=== PATIENT | female | born 1950 | race Caucasian/White ===

== ENCOUNTER 2016-12-14 21:55 | Inpatient (IN) | payer MEDICARE ==
[~2016-12-14] VITALS: Ht 165.1 cm; Wt 77.7 kg
[~2016-12-14 21:55] MED LIST: ALBU2.5I INH; ASPI325T24 PO; CALC600T10 PO; CHOL1CAP6 PO; CLON.1 PO; CYMB60CA PO; FLON0.053; LIPI80TA16 PO; LOSA50TA PO; METO50CR PO; MONT10TA2 PO; NIAC500T18 PO; OMEP20TA39 PO; PRED10 PO; TRAZ100 PO
[2016-12-14 22:02] VITALS: BP 221/102; PULSE 59; RESP 16; O2SAT 96
[2016-12-14] MEDS ORDERED: SODIUM CHLOR 0.9% 1000 ML INJ 1,000 ML IV ONE (22:08)
[2016-12-14 22:25] VITALS: BP 221/102; PULSE 67; RESP 16; O2SAT 94
[2016-12-14 22:29] LABS: AUTOMATED NEUTROPHIL # 11.6 TH/MM3 (1.8-7.7); BASOPHIL % 0.1 % (0.0-2.0); HEMATOCRIT 39.5 % (35.0-46.0); LYMPH % 8.5 % (9.0-44.0); LYMPHOCYTE # 1.2 TH/MM3 (1.0-4.8); MEAN CELL VOLUME 89.2 FL (80.0-100.0); MEAN CORPUSCULAR HEMOGLOBIN 30.2 PG (27.0-34.0); MEAN CORPUSCULAR HGB CONC 33.8 % (32.0-36.0); MONO % 6.6 % (0.0-8.0); NEUT % 84.8 % (16.0-70.0); PLATELET COUNT 212 TH/MM3 (150-450); RED BLOOD COUNT 4.43 MIL/MM3 (4.00-5.30); RED CELL DISTRIBUTION WIDTH 13.3 % (11.6-17.2); WHITE BLOOD COUNT 13.7 TH/MM3 (4.0-11.0)
[2016-12-14 22:30] VITALS: BP 239/103; PULSE 75; RESP 16; O2SAT 96
[2016-12-14 22:30] LABS: I-STAT POTASSIUM 3.7 MMOL/L (3.5-4.9)
[2016-12-14] MEDS ORDERED: niCARdipine INJ 25 MG in SODIUM CHLOR 0.9% 250 ML INJ 250 ML IV SCH (22:30)
[2016-12-14] MEDS ORDERED: ONDANSETRON HCL 4 MG/2 ML VIAL IV PUSH ONE (22:30)
[2016-12-14] MEDS ORDERED: MORPHINE SULFATE 4 MG/ML INJ IV PUSH ONE (22:30)
--- NOTE | 2016-12-14 22:30 | RADRPT ---
EXAM DATE/TIME: 12/14/2016 22:13 [place] COMPARISON: No previous studies available for comparison. INDICATIONS : Stroke alert; headache and right vision loss. RADIATION DOSE: 38.81 CTDIvol (mGy) This report was called by Dr Driver to Dr Post at 10: 27 PM MEDICAL HISTORY : Non-responsive. SURGICAL HISTORY : Non-responsive. ENCOUNTER: Initial ACUITY: 1 day PAIN SCALE: Non-responsive LOCATION: cranial TECHNIQUE: Multiple contiguous axial images were obtained of the head. Using automated exposure control and adj ustment of the mA and/or kV according to patient size, radiation dose was kept as low as reasonably a chievable to obtain optimal diagnostic quality images. FINDINGS: There is an approximately 4 cm x 1.7 cm acute hemorrhage in the right occipital lobe with some surrou nding edema and mass effect and sulcal effacement and small amount of extra-axial hemorrhage extendin g into the posterior interhemispheric region and right tentorium. There is no significant midline quin ft. No acute bony abnormalities. CONCLUSION: 1. Acute 4 cm x 1.7 cm hemorrhage in the right occipital lobe with some surrounding edema and localiz ed mass effect and trace extra-axial hemorrhage as well. Kenneth Driver MD on December 14, 2016 at 22:25 Board Certified Radiologist. This report was verified electronically.
[2016-12-14 22:31] LABS: HEMO FLAGS AUTO DIFF
--- NOTE | 2016-12-14 22:40 | PD ---
HPI Chief Complaint: Neuro Symptoms/ Deficits Time Seen by Provider: 22:08 Travel History International Travel<30 days: No Contact w/Intl Traveler<30days: No Traveled to known affect area: No History of Present Illness HPI Patient is a 66-year-old female who approximately an hour prior to presentation had onset of the worst headache of her life particularly on the right side of her head. Patient also has a very vague visual disturbance on the left side of her visual camp. Patient states she is unable to see the glasses on the left side of my face. Patient states he is not on any blood thinners currently. She 'll he takes 325 mg of aspirin daily. Patient does have a history of breast cancer which is in remission since 2013. Patient states she's never had a headache like this also radiating down her neck. PFSH Past Medical History Hx Anticoagulant Therapy: Yes (325MG ASA) Asthma: Yes Blood Disorders: No Anxiety: Yes Depression: Yes Heart Rhythm Problems: Yes Cancer: Yes (LEFT BREAST) Cardiac Catheterization: Yes Cardiovascular Problems: Yes (IRREGULAR HEART BEAT, SMALL CORONARY ARTERIES) High Cholesterol: Yes (CONTROLLED ON MEDS) Chemotherapy: No Chest Pain: No Congestive Heart Failure: No COPD: Yes Cerebrovascular Accident: Yes (6 TIA'S 2009) Coronary Artery Disease: Yes Diabetes: Yes (TYPE 2) Diminished Hearing: Yes Endocrine: Yes Gastrointestinal Disorders: Yes (ACID REFLUX) GERD: Yes Glaucoma: No Genitourinary: No Headaches: Yes Hepatitis: No Hiatal Hernia: Yes Hypertension: Yes (CONTROLLED ON MEDS) Immune Disorder: No Kidney Stones: No Musculoskeletal: Yes (ARTHRITIS R KNEE, LEFT KNEE) Neurologic: Yes (TIA X 4 2005 2006 2007 2009) Psychiatric: Yes (CLAUSTROPHOBIC) Reproductive: No Respiratory: Yes (ASTHMA, COPD) Immunizations Current: Yes Myocardial Infarction: No Radiation Therapy: Yes (LAST DOSE 11/24/14) Renal Failure: No Seizures: No Sleep Apnea: No Thyroid Disease: No Ulcer: Yes Menopausal: Yes Tubal Ligation: Yes Past Surgical History Abdominal Surgery: Yes (APPENDECTOMY, CHOLECYSTECTOMY) AICD: No Appendectomy: Yes Body Medical Devices: TITANIUM PLACED DURING HEMORRHOIDECTOMY Cardiac Surgery: No Section: Yes Cholecystectomy: Yes Ear Surgery: No Endocrine Surgery: No Eye Surgery: No Genitourinary Surgery: No Gynecologic Surgery: Yes Joint Replacement: Yes (RIGHT KNEE 07/17/14) Oral Surgery: Yes (PERMANENT BRIDGE) Pacemaker: No Thoracic Surgery: No Other Surgery: Yes (MULT SKIN CANCER REMOVED) Social History Alcohol Use: No Tobacco Use: No Substance Use: No Allergies-Medications (Allergen,Severity, Reaction): Coded Allergies: Bactrim (Verified Allergy, Severe, RASH/ NAUSEA, 12/14/16) Biaxin (Verified Allergy, Severe, RASH, 12/14/16) Penicillin (Verified Allergy, Severe, RASH, 12/14/16) Aggrenox (Unverified Allergy, Unknown, 12/14/16) Codeine (Unverified Adverse Reaction, Severe, HALLUCINATIONS, 12/14/16) Reported Meds & Prescriptions Reported Meds & Active Scripts Active Reported Flonase Allergy Relief Children Nasal [place] (Fluticasone Nasal [place]) 50 Mcg/ Act [place] 1 [place] EACH NARE DAILY PRN 50 mcg/spray Montelukast (Montelukast Sodium) 10 Mg Tab 10 Mg PO HS Vitamin C (Ascorbic Acid) 1,000 Mg Tab 1,000 Mg PO DAILY Niacin 500 Mg Tab 1,000 Mg PO DAILY Omeprazole 20 Mg Tab 20 Mg PO BID Trazodone (Trazodone HCl) 100 Mg Tab 100 Mg PO HS Cymbalta DR (Duloxetine HCl) 60 Mg Capdr 60 Mg PO DAILY Vitamin D (Ergocalciferol) 50,000 Unit Cap 900 Units PO Q7D Calcium + D & K (Calcium-Vitamins D & K) 500-1,000-40 Mg-Unit-Mcg Chew 900 Tab CHEW Lipitor (Atorvastatin Calcium) 80 Mg Tab 80 Mg PO HS Clonidine (Clonidine HCl) 0.1 Mg Tab 0.1 Mg PO BID Losartan (Losartan Potassium) 50 Mg Tab 50 Mg PO DAILY Metoprolol Tartrate 50 Mg Tab 50 Mg PO BID Metformin (Metformin HCl) 500 Mg Tab 500 Mg PO DAILY With a meal Albuterol Neb (Albuterol Sulfate) 2.5 Mg/3 Ml Neb 2.5 Mg NEB BID Aspirin 325 Mg Tab 325 Mg PO ONCE Review of Systems Except as stated in HPI: all other systems reviewed are Neg Physical Exam Narrative GENERAL: Well-developed well-nourished no apparent distress. SKIN: Warm and dry. HEAD: Atraumatic. Normocephalic. EYES: Pupils equal and round. No scleral icterus. No injection or drainage. ENT: No nasal bleeding or discharge. Mucous membranes pink and moist. NECK: Trachea midline. No JVD. CARDIOVASCULAR: Regular rate and rhythm. No murmur appreciated. RESPIRATORY: No accessory muscle use. Clear to auscultation. Breath sounds equal bilaterally. GASTROINTESTINAL: Abdomen soft, non-tender, nondistended. Hepatic and splenic margins not palpable. MUSCULOSKELETAL: No obvious deformities. No clubbing. No cyanosis. No edema. NEUROLOGICAL: Awake alert in [place] responsive. GCS 15. Cranial nerves III through XII grossly intact and nonfocal. Patient has 5 out of 5 strength in all 4 extremities. Cerebellar testing normal. Patient is able to identify a light source equally throughout all visual camp in both eyes. She is also able to identify the number of fingers in all visual camp. Her cranial nerve II deficit is somewhat more vague as of blurred vision. PSYCHIATRIC: Appropriate mood and affect; insight and judgment normal. Data Data Last Documented VS Vital Signs Date Time Temp Pulse Resp B/P Pulse Ox O2 Delivery O2 Flow Rate FiO2 12/14/16 22:31 Nasal Cannula 2 12/14/16 22:30 75 16 239/103 96 Orders Electrocardiogram (12/14/16 ) Diet Npo (12/15/16 Breakfast) Activity Bed Rest (12/14/16 ) I-Stat Creatinine (12/14/16 22:08) I-Stat Profile (12/14/16 22:08) Prothrombin Time / Inr (Pt) (12/14/16 22:08) Act Partial Throm Time (Ptt) (12/14/16 22:08) Complete Blood Count With Diff (12/14/16 22:08) Fibrinogen (12/14/16 22:08) Creatine Kinase (Cpk) (12/14/16 22:08) Troponin I (12/14/16 22:08) Ua Includes Microscopic (12/14/16 22:08) Drug Screen, Random Urine (12/14/16 22:08) Type And Screen (12/14/16 22:08) Ct Brain W/O Iv Contrast(Rout) (12/14/16 ) Beta Hcg (Quant/Titer) (12/14/16 22:08) Consult Neurology (12/14/16 ) Blood Glucose (12/14/16 22:08) Ecg Monitoring (12/14/16 22:08) Neuro Checks Q2HX12,Q4H (12/14/16 22:08) Nursing Bedside Swallow Assess .ONCE (12/14/16 22:08) Iv Access Insert/Monitor (12/14/16 22:08) NPO (12/14/16 22:08) Oximetry (12/14/16 22:08) Oxygen Administration (12/14/16 22:08) Sodium Chlor 0.9% 1000 Ml Inj (Ns 1000 M (12/14/16 22:08) Resp Oxygen Levy C Titrat 1-4 L (12/14/16 22:08) Cath For Specimen (12/14/16 22:08) Nicardipine Inj (Cardene Inj) (12/14/16 22:30) Morphine Inj (Morphine Inj) (12/14/16 22:30) Ondansetron Inj (Zofran Inj) (12/14/16 22:30) Admit To Inpatient (12/14/16 ) Vital Signs (Adult) Q1H (12/14/16 23:12) Neuro Checks Q1H (12/14/16 23:12) Ot Request For Service (12/14/16 23:12) Consult Pt Eval & Treat (12/14/16 23:12) Case Management Consult (12/14/16 ) Activity Bed Rest (12/14/16 23:12) ^ Elevate Head Of Bed (12/14/16 23:12) Nursing Bedside Swallow Assess .ONCE (12/14/16 23:12) Complete Blood Count With Diff (12/15/16 06:00) Basic Metabolic Panel (Bmp) (12/15/16 06:00) Hepatic Functional Panel (12/15/16 06:00) Fibrinogen (12/15/16 06:00) Drug Screen, Random Urine (12/14/16 23:12) Mri Brain W&W/O Contrast (12/15/16 06:00) Resp Oxygen Levy C Titrat 1-4 L (12/14/16 ) Sodium Chlor 0.9% 1000 Ml Inj (Ns 1000 M (12/14/16 23:12) Sodium Chloride 0.9% Flush (Ns Flush) (12/14/16 23:15) Sodium Chloride 0.9% Flush (Ns Flush) (12/15/16 09:00) Labetalol Inj (Trandate Inj) (12/14/16 23:15) Clonidine (Catapres) (12/14/16 23:15) Pantoprazole Inj (Protonix Inj) (12/15/16 09:00) Acetaminophen (Tylenol) (12/14/16 23:15) Ondansetron Inj (Zofran Inj) (12/14/16 23:15) Docusate Sodium (Colace) (12/14/16 23:15) Scd Bilateral/Knee High JIGNESH.QSHIFT (12/14/16 23:12) Place Change Roof Bolter / Telemetry JIGNESH.Q8H (12/14/16 23:12) Consult Stoke Navigator (12/14/16 ) Inpatient Certification (12/14/16 ) Blood Culture (12/14/16 23:12) Levetiracetam Inj (Keppra Inj) (12/15/16 00:00) Morphine Inj (Morphine Inj) (12/14/16 23:30) Admit Order (Ed Use Only) (12/14/16 ) Labs Laboratory Tests Test 12/14/16 22:12 White Blood Count 13.7 TH/MM3 Red Blood Count 4.43 MIL/MM3 Hemoglobin 13.4 GM/DL Bedside Hemoglobin 13.6 G/DL Hematocrit 39.5 % Bedside Hematocrit 40.0 % Mean Corpuscular Volume 89.2 FL Mean Corpuscular Hemoglobin 30.2 PG Mean Corpuscular Hemoglobin 33.8 % Concent Red Cell Distribution Width 13.3 % Platelet Count 212 TH/MM3 Mean Platelet Volume 8.9 FL Neutrophils (%) (Auto) 84.8 % Lymphocytes (%) (Auto) 8.5 % Monocytes (%) (Auto) 6.6 % Eosinophils (%) (Auto) 0.0 % Basophils (%) (Auto) 0.1 % Neutrophils # (Auto) 11.6 TH/MM3 Lymphocytes # (Auto) 1.2 TH/MM3 Monocytes # (Auto) 0.9 TH/MM3 Eosinophils # (Auto) 0.0 TH/MM3 Basophils # (Auto) 0.0 TH/MM3 CBC Comment AUTO DIFF Differential Total Cells 100 Counted Neutrophils % (Manual) 79 % Band Neutrophils % 1 % Lymphocytes % 11 % Monocytes % 7 % Neutrophils # (Manual) 11.2 TH/MM3 Metamyelocytes 2 % Differential Comment FINAL DIFF MANUAL Platelet Estimate NORMAL Platelet Morphology Comment NORMAL Red Cell Morphology Comment NORMAL Prothrombin Time 11.4 SEC Prothromb Time International 1.0 RATIO Ratio Activated Partial 21.7 SEC Thromboplast Time Fibrinogen 164 mg/dL Bedside Sodium 138 MMOL/L Bedside Potassium 3.7 MMOL/L Bedside Chloride 102 MMOL/L Bedside Blood Urea Nitrogen 24 MG/DL Bedside Creatinine 1.0 MG/DL Bedside Glucose 135 MG/DL Total Creatine Kinase 72 U/L Troponin I 0.02 NG/ML Human Chorionic Gonadotropin, 8 MIU/ML Quant Blood Type A POSITIVE Antibody Screen NEGATIVE MDM Medical Decision Making Medical Screen Exam Complete: Yes Emergency Medical Condition: Yes Differential Diagnosis Intracranial hemorrhage, intraparenchymal hemorrhage, hypertensive emergency, coagulopathy, hemorrhagic stroke, ischemic stroke. Narrative Course Patient was activated as a stroke alert on arrival, she was discussed briefly with neurology on-call, patient was rushed to the CAT scanner which revealed a right-sided occipital bleed which would explain her symptoms. Patient is very hypertensive on arrival with blood pressures in 220 systolic Cardene drip was ordered to lower her blood pressure for a goal of 160-[address] Patel has been paged who is on-call for the neurosurgery service. She is in route. Abdomen urine is arrived and evaluated the patient and will pursue nonoperative management at this time. Plan is for an MRI in the morning at this point. Patient will go to the SICU for the night. Labs reviewed and a platelet count is within normal limits, coags within normal limits, chemistry within normal limits. Critical Care Narrative Aggregate critical care time was 35 minutes. Time to perform other separately billable procedures was not included in the critical care time. My time did not include minutes spent treating any other patients simultaneously or on activities that did not directly contribute to the patient's treatment. The services I provided to this patient were to treat and/or prevent clinically significant deterioration that could result in: , disability, organ failure. I provided critical care services requiring my management, as noted below: Chart data review, documentation time, medication orders and management, vital sign assessments/reviewing monitor data, ordering and reviewing lab tests, ordering and interpreting/reviewing x-rays and diagnostic studies, care of the patient and discussion of the patient with the admitting physicians. Diagnosis Primary Impression: Hemorrhagic stroke Additional Impressions: Intracranial hemorrhage Hypertensive emergency Admitting Information Admitting Physician Requests: Admit Condition: Critical Sotero Post MD Dec 14, 2016 22:39
[2016-12-14 22:42] LABS: APTT (PATIENT) 21.7 SEC (24.3-30.1); PROTHROMBIN TIME - PATIENT 11.4 SEC (9.8-11.6)
[2016-12-14] MEDS ORDERED: CLON0.1T PO (22:56)
[2016-12-14] MEDS ORDERED: METF500T PO (22:56)
[2016-12-14] MEDS ORDERED: ERGO1CAP10 PO (22:56)
[2016-12-14] MEDS ORDERED: TRAZ100T4 PO (22:56)
[2016-12-14] MEDS ORDERED: METO50TA PO (22:56)
[2016-12-14] MEDS ORDERED: LOSA50TA PO (22:56)
[2016-12-14] MEDS ORDERED: ALBU0.08 NEB (22:56)
[2016-12-14] MEDS ORDERED: CYMB60CA PO (22:56)
[2016-12-14] MEDS ORDERED: ASPI325T PO (22:56)
[2016-12-14] MEDS ORDERED: LIPI80TA PO (22:56)
[2016-12-14] MEDS ORDERED: CALCCHW25 CHEW (22:56)
[2016-12-14] MEDS ORDERED: VITA10007 PO (22:57)
[2016-12-14] MEDS ORDERED: MONT10TA4 PO (22:57)
[2016-12-14] MEDS ORDERED: NIAC500T5 PO (22:57)
[2016-12-14] MEDS ORDERED: OMEP20TA PO (22:57)
[2016-12-14] MEDS ORDERED: FLUT1SPR9 EACH NARE (22:57)
[2016-12-14 23:00] VITALS: BP 133/59; PULSE 70; RESP 16; O2SAT 96
[2016-12-14 23:01] LABS: BANDS 1 % (0-6); METAMYELOCYTES 2 % (0-1); NEUTROPHIL # MANUAL DIFF 11.2 TH/MM3 (1.8-7.7); PLATELET ESTIMATE SMEAR NORMAL (NORMAL); PLATELET MORPHOLOGY NORMAL (NORMAL); POLYS (SEG NEUTROPHILS) 79 % (16-70); SCAN/DIFF FINAL DIFF MANUAL; WBC DIFF SAMPLE 100
[2016-12-14] MEDS: SODIUM CHLOR 0.9% 1000 ML INJ 1,000 ML IV SCH (23:12)
[2016-12-14] MEDS ORDERED: LABETALOL HCL 100 MG/20 ML VIAL IV PRN (23:15)
[2016-12-14] MEDS ORDERED: SODIUM CHLORIDE 0.9% FLUSH 5 ML FLUSH IVF PRN (23:15)
[2016-12-15] VITALS (13 sets, daily range): BP systolic 126–193; BP diastolic 58–85; PULSE 48–84; RESP 12–24; TEMP 97.5–98.2; O2SAT 93–98
[2016-12-15] MEDS ORDERED: FLUTICASONE PROPIONATE 50 MCG/ACT 16 GM NASAL SPRAY EACH NARE PRN
[2016-12-15] MEDS ORDERED: LORazepam 2 MG/ML VIAL IV PUSH ONE
[2016-12-15] MEDS ORDERED: ASPIRIN 325 MG TAB PO SCH
--- NOTE | 2016-12-15 00:06 | HHI.HP ---
HPI Service Neurosurgery Primary Care Physician Carmelo Cross MD Chief Complaint: headache History of Present Illness 66 rt handed lady presented after acute onset of headache while watching TV. She also felt that she could not see on the left. Her systolic BP was over 200. Her gave her clonidine and took her to the ED where a CT showed a right occipital 4x2 cm acute hemorrhage. She remains alert and her BP normalized with cardene.She still has a left upper quadrant anopsia but is otherwise intact. GCS is 15 Review of Systems Constitutional: DENIES: Diaphoretic episodes, Fatigue, Fever, Weight gain, Weight loss, Chills, Dizziness, Change in appetite, Night Sweats Endocrine: DENIES: Abnorml menstrual pattern, Heat/cold intolerance, Polydipsia , Polyuria, Polyphagia Eyes: DENIES: Blurred vision, Diplopia, Eye inflammation, Eye pain, Vision loss , Photosensitivity, Double Vision Ears, nose, mouth, throat: DENIES: Tinnitus, Hearing loss, Vertigo, Nasal discharge, Oral lesions, Throat pain, Hoarseness, Ear Pain, Running Nose, Epistaxis, Sinus Pain, Toothache, Odynophagia Respiratory: DENIES: Apneas, Cough, Snoring, Wheezing, Hemoptysis, Sputum production, Shortness of breath Cardiovascular: DENIES: Chest pain, Palpitations, Syncope, Dyspnea on Exertion , PND, Lower Extremity Edema, Orthopnea, Claudication Gastrointestinal: DENIES: Abdominal pain, Black stools, Bloody stools, Constipation, Diarrhea, Nausea, Vomiting, Difficulty Swallowing, Anorexia Genitourinary: DENIES: Abnormal vaginal bleeding, Dysmenorrhea, Dyspareunia, Sexual dysfunction, Urinary frequency, Urinary incontinence, Urgency, Hematuria , Dysuria, Nocturia, Vaginal discharge Musculoskeletal: COMPLAINS OF: Neck pain, DENIES: Joint pain, Muscle aches, Stiffness, Joint Swelling, Back pain Integumentary: DENIES: Abnormal pigmentation, Pruritus, Rash, Nail changes, Breast masses, Breast skin changes, Nipple discharge Hematologic/lymphatic: DENIES: Bruising, Lymphadenopathy Neurologic: COMPLAINS OF: Headache Psychiatric: DENIES: Anxiety, Confusion, Mood changes, Depression, Hallucinations, Agitation, Suicidal Ideation, Homicidal Ideation, Delusions Past Family Social History Allergies: Coded Allergies: Bactrim (Verified Allergy, Severe, RASH/ NAUSEA, 12/14/16) Biaxin (Verified Allergy, Severe, RASH, 12/14/16) Penicillin (Verified Allergy, Severe, RASH, 12/14/16) Aggrenox (Unverified Allergy, Unknown, 12/14/16) Codeine (Unverified Adverse Reaction, Severe, HALLUCINATIONS, 12/14/16) Past Medical History Breast CA treated with lumpectomy and RT Pulmonary reactive changes treated with steroids in the past week. 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 DM type 2 treated with metformin, hypercholesterolemia, CAD TIAs many yrs ago treated with ASA, last was many yrs ago OA Past Surgical History Lumpectomy Knee replacement Reported Medications Reported Meds & Active Scripts Active Reported Flonase Allergy Relief Children Nasal [place] (Fluticasone Nasal [place]) 50 Mcg/ Act [place] 1 [place] EACH NARE DAILY PRN 50 mcg/spray Montelukast (Montelukast Sodium) 10 Mg Tab 10 Mg PO HS Vitamin C (Ascorbic Acid) 1,000 Mg Tab 1,000 Mg PO DAILY Niacin 500 Mg Tab 1,000 Mg PO DAILY Omeprazole 20 Mg Tab 20 Mg PO BID Trazodone (Trazodone HCl) 100 Mg Tab 100 Mg PO HS Cymbalta DR (Duloxetine HCl) 60 Mg Capdr 60 Mg PO DAILY Vitamin D (Ergocalciferol) 50,000 Unit Cap 900 Units PO Q7D Calcium + D & K (Calcium-Vitamins D & K) 500-1,000-40 Mg-Unit-Mcg Chew 900 Tab CHEW Lipitor (Atorvastatin Calcium) 80 Mg Tab 80 Mg PO HS Clonidine (Clonidine HCl) 0.1 Mg Tab 0.1 Mg PO BID Losartan (Losartan Potassium) 50 Mg Tab 50 Mg PO DAILY Metoprolol Tartrate 50 Mg Tab 50 Mg PO BID Metformin (Metformin HCl) 500 Mg Tab 500 Mg PO DAILY With a meal Albuterol Neb (Albuterol Sulfate) 2.5 Mg/3 Ml Neb 2.5 Mg NEB BID Aspirin 325 Mg Tab 325 Mg PO ONCE Family History Mother had lung CA Cardiac disease is prevalent in her family Social History , she does not smoke, 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 Reflexes brisk 3/4 in the bic/tri/patella, no Carrillo no Babinski Skin warm, RRR, lungs CTA, no wheezing, abd soft with nl BS Laboratory Laboratory Tests Test 12/14/16 22:12 White Blood Count 13.7 Red Blood Count 4.43 Hemoglobin 13.4 Bedside Hemoglobin 13.6 Hematocrit 39.5 Bedside Hematocrit 40.0 Mean Corpuscular Volume 89.2 Mean Corpuscular Hemoglobin 30.2 Mean Corpuscular Hemoglobin 33.8 Concent Red Cell Distribution Width 13.3 Platelet Count 212 Mean Platelet Volume 8.9 Neutrophils (%) (Auto) 84.8 Lymphocytes (%) (Auto) 8.5 Monocytes (%) (Auto) 6.6 Eosinophils (%) (Auto) 0.0 Basophils (%) (Auto) 0.1 Neutrophils # (Auto) 11.6 Lymphocytes # (Auto) 1.2 Monocytes # (Auto) 0.9 Eosinophils # (Auto) 0.0 Basophils # (Auto) 0.0 CBC Comment AUTO DIFF Differential Total Cells 100 Counted Neutrophils % (Manual) 79 Band Neutrophils % 1 Lymphocytes % 11 Monocytes % 7 Neutrophils # (Manual) 11.2 Metamyelocytes 2 Differential Comment FINAL DIFF MANUAL Platelet Estimate NORMAL Platelet Morphology Comment NORMAL Red Cell Morphology Comment NORMAL Prothrombin Time 11.4 Prothromb Time International 1.0 Ratio Activated Partial 21.7 Thromboplast Time Fibrinogen 164 Bedside Sodium 138 Bedside Potassium 3.7 Bedside Chloride 102 Bedside Blood Urea Nitrogen 24 Bedside Creatinine 1.0 Bedside Glucose 135 Total Creatine Kinase 72 Troponin I 0.02 Human Chorionic Gonadotropin, 8 Quant Blood Type A POSITIVE Antibody Screen NEGATIVE Result Diagram: 12/14/162211 Imaging Last Impressions Head CT 12/14/16 0000 Signed Impressions: Service Date/Time: Wednesday, December 14, 2016 22:13 - CONCLUSION: 1. Acute 4 cm x 1.7 cm hemorrhage in the right occipital lobe with some surrounding edema and localized mass effect and trace extra-axial hemorrhage as well. Kenneth Driver MD Assessment and Plan Diagnosis: (1) Intracranial hemorrhage Plan: New onset acute of right occipital bleed, D/DX includes vasculopathy, hemorrhagic mass. MRI of the brain with and without contrast is pending. ICD Code: I62.9 (2) Hypertensive emergency Plan: Blood pressure control with cardene gtt is ordered. She has recently been for a week on IV steroids. A follow up cortisol is pending for tomorrow am. ICD Code: I16.1 Assessment and Plan Seizure, DVT and PUD prophylaxis is ordered per protocol. Low dose ASA is continued as it has been helpful for TIA prevention in the past for her and is unlikely to increase the bleed at a low dose. Jay Patel Dec 15, 2016 00:05
[2016-12-15 00:35] LABS: BLOOD, URINE NEG (NEG); GLUCOSE,URINE NEG (NEG); KETONE, URINE NEG (NEG); NITRITE,URINE NEG (NEG); PH, URINE 6.5 (5.0-8.5); SQUAMOUS EPITHELIAL CELL URINE <1 /hpf (0-5); URINE COLOR COLORLESS (YELLW/STRAW)
[2016-12-15] MEDS ORDERED: ASPIRIN 81 MG CHEW TAB PO ONE (00:45)
[2016-12-15 00:51] LABS: AMPHETAMINE, URINE NEG (NEG); BARBITURATES, URINE NEG (NEG); COCAINE, URINE NEG (NEG)
[2016-12-15] MEDS: ONDANSETRON HCL 4 MG/2 ML VIAL IV PRN (03:25)
[2016-12-15 05:30] LABS: AUTOMATED NEUTROPHIL # 18.1 TH/MM3 (1.8-7.7); BASOPHIL % 0.2 % (0.0-2.0); HEMATOCRIT 39.3 % (35.0-46.0); HEMO FLAGS DIFF FINAL; LYMPH % 8.9 % (9.0-44.0); MEAN CELL VOLUME 88.2 FL (80.0-100.0); MEAN CORPUSCULAR HEMOGLOBIN 29.4 PG (27.0-34.0); MEAN CORPUSCULAR HGB CONC 33.3 % (32.0-36.0); MONO % 8.5 % (0.0-8.0); NEUT % 82.4 % (16.0-70.0); PLATELET COUNT 144 TH/MM3 (150-450); RED BLOOD COUNT 4.45 MIL/MM3 (4.00-5.30)
[2016-12-15 05:58] LABS: BICARBONATE 18.2 MEQ/L (21.0-32.0); POTASSIUM 3.8 MEQ/L (3.5-5.1)
[2016-12-15] MEDS: ACETAMINOPHEN 1000 MG/100 ML VIAL IV SCH ×5 (06:00→23:08)
[2016-12-15 06:01] LABS: INDIRECT BILIRUBIN 0.2 MG/DL (0.0-0.8); TOTAL BILIRUBIN ADULT 0.3 MG/DL (0.2-1.0)
[2016-12-15] MEDS: cloNIDine HCL 0.1 MG TAB PO PRN (06:18)
[2016-12-15] MEDS: PANTOPRAZOLE SODIUM 40 MG VIAL IVP SCH (06:45)
[2016-12-15] MEDS: RESP: ALBUTEROL 2.5 MG/3 ML NEB (SCH) INH ×2 (08:40→20:42)
[2016-12-15] MEDS: METOPROLOL TARTRATE 50 MG TAB PO SCH ×2 (09:00→20:52)
[2016-12-15] MEDS: metFORMIN HCL 500 MG TAB PO SCH (09:00)
[2016-12-15] MEDS: SODIUM CHLORIDE 0.9% FLUSH 5 ML FLUSH IVF SCH ×2 (09:22→20:55)
[2016-12-15] MEDS: LOSARTAN 50 MG TAB PO SCH (09:23)
[2016-12-15] MEDS: DEXAMETHASONE 4 MG TAB PO SCH (09:23)
[2016-12-15] MEDS: DULoxetine HCl DR 60 MG CAP PO SCH (09:23)
[2016-12-15] MEDS: cloNIDine HCL 0.1 MG TAB PO SCH ×2 (09:23→20:52)
[2016-12-15] MEDS: ASCORBIC ACID 500 MG TAB PO SCH (09:24)
[2016-12-15] MEDS: NIACIN 500 MG EXTENDED RELEASE TAB PO SCH (09:24)
[2016-12-15] MEDS: ACETAMINOPHEN 325 MG TAB PO PRN (09:24)
--- NOTE | 2016-12-15 09:40 | HHI.NSPN ---
Subjective History 66 yr old with acute onset spontaneous right occipital bleed, with a left superior quadrant visual field loss as well as headaches. MRI/MRS is pending today. GCS is 15 Vitals . Vital Signs Date Time Temp Pulse Resp B/P Pulse Ox O2 Delivery O2 Flow Rate FiO2 12/15/16 08:40 95 21 12/15/16 04:00 97.5 62 14 143/69 93 12/15/16 02:00 97.5 62 14 143/69 93 12/15/16 00:00 62 16 126/58 96 Nasal Cannula 2 12/14/16 23:00 70 16 133/59 96 Nasal Cannula 2 12/14/16 22:31 Nasal Cannula 2 12/14/16 22:30 75 16 239/103 96 12/14/16 22:25 67 16 221/102 94 Room Air 12/14/16 22:02 59 16 221/102 96 12/14/16 12/14/16 12/15/16 15:00 23:00 07:00 Intake Total 468 ml Balance 468 ml Physical Exam Head Head: Atraumatic Eyes Eyes: Pupils Equal Eyes Remarks left upper quadrant visual field cut unchanged, face symmetric, EOMI Neuro Mental Status: Awake, Oriented x 3 Pupils: Reactive Bilaterally Speech: Clear [place] Coma Scale Best Eye Openin - Spontaneous Best Verbal: 5 - Oriented Best Motor: 6 - Obeys Total Gl[place]ow Coma Scale (GCS): 15 Sensation: Intact Cardiac Cardiac: Regular Rate & Rhythm Respiratory Respiratory: CTA Gastrointestinal Gastrointestinal: Soft, Nontender Musculoskeletal Musculoskeletal: Moves all extrem with 5/5 strength Extremities Upper Extremities Deltoid Bicep Tricep HI W. Ext Right Left Lower Extremeties Ilio Quad Plantar Dorsi EHL Right Left Dermatologic Dermatologic: Skin Intact Extremities Edema: SCDs Objective Infectious Disease Cultures Microbiology Date/Time Procedure Status Source Growth 12/14/16 23:40 Aerobic Blood Culture Received Blood Peripheral Pending 12/14/16 23:40 Anaerobic Blood Culture Received Blood Peripheral Pending Labs Laboratory Tests 12/14/16 22:12 12/15/16 05:05 12/15/16 05:08 Laboratory Tests Test 12/14/16 12/15/16 12/15/16 22:12 05:05 05:08 Bedside Sodium 138 MMOL/L Bedside Potassium 3.7 MMOL/L Bedside Chloride 102 MMOL/L Bedside Blood Urea Nitrogen 24 MG/DL Bedside Creatinine 1.0 MG/DL Bedside Glucose 135 MG/DL Total Creatine Kinase 72 U/L Troponin I 0.02 NG/ML Human Chorionic Gonadotropin, 8 MIU/ML Quant Sodium Level 139 MEQ/L Potassium Level 3.8 MEQ/L Chloride Level 110 MEQ/L Carbon Dioxide Level 18.2 MEQ/L Anion Gap 11 MEQ/L Blood Urea Nitrogen 21 MG/DL Creatinine 0.78 MG/DL Estimat Glomerular Filtration 74 ML/MIN Rate Random Glucose 90 MG/DL Calcium Level 8.2 MG/DL Total Bilirubin 0.3 MG/DL Direct Bilirubin 0.1 MG/DL Indirect Bilirubin 0.2 MG/DL Aspartate Amino Transf 29 U/L (AST/SGOT) Alanine Aminotransferase 36 U/L (ALT/SGPT) Alkaline Phosphatase 49 U/L Total Protein 5.1 GM/DL Albumin 2.8 GM/DL Random Cortisol 0.7 MCG/DL Laboratory Tests Test 12/14/16 23:45 Urine Opiates Screen NEG Urine Barbiturates Screen NEG Urine Amphetamines Screen NEG Urine Benzodiazepines Screen NEG Urine Cocaine Screen NEG Urine Cannabinoids Screen NEG Imaging Remarks Last Impressions Head CT 12/14/16 0000 Signed Impressions: Service Date/Time: Wednesday, December 14, 2016 22:13 - CONCLUSION: 1. Acute 4 cm x 1.7 cm hemorrhage in the right occipital lobe with some surrounding edema and localized mass effect and trace extra-axial hemorrhage as well. Kenneth Driver MD Assessment & Plan Diagnosis: (1) Intracranial hemorrhage Plan: New onset acute of right occipital bleed, D/DX includes vasculopathy, hemorrhagic mass. MRI / MRS of the brain with and without contrast is pending. (2) Hypertensive emergency Plan: Blood pressure control with cardene gtt is ordered. She has recently been for a week on IV steroids. A follow up cortisol is low and steroid taper is initiated. Critical Care Time (minutes): 10 Jay Patel Dec 15, 2016 9:40 am
--- NOTE | 2016-12-15 09:46 | EKG ---
Date Performed: 12/15/2016 Time Performed: 03:58:22 PTAGE: 66 years EKG: Sinus rhythm Prolonged QT interval Poor R wave progression - probable normal variant Lateral ST-T changes are non specific Borderline ECG Compared to prior tracing no significant change PREVIOUS TRACING 12/14/2016 22.03.42 DOCTOR: Yash Merino Interpretating Date/Time 12/15/2016 09:44:22
--- NOTE | 2016-12-15 09:46 | EKG ---
Date Performed: 12/14/2016 Time Performed: 22:03:42 PTAGE: 66 years EKG: SINUS BRADYCARDIA MODERATE VOLTAGE CRITERIA FOR LVH, CONSIDER NORMAL VARIANT BORDERLINE ECG Compared to prior tracing no significant change PREVIOUS TRACING : 08/07/2016 12.08 DOCTOR: Yash Merino Interpretating Date/Time 12/15/2016 09:44:31
[2016-12-15] MEDS: levETIRAcetam INJ 500 MG in SODIUM CHLORIDE 0.9% INJ 100 ML IV SCH ×4 (11:50→23:09)
--- NOTE | 2016-12-15 12:00 | MB ---
cc: KAYLA DOSS M.D. DATE OF CONSULTATION: 12/15/2016 HISTORY OF PRESENT ILLNESS The patient is seen for neurological evaluation. Her is at the bedside. She came in yesterday with sudden onset of a very unusual headache and the CT brain showed a right occipital bleed. I have reviewed the CT brain. PAST MEDICAL HISTORY There is a history of breast cancer treated in 2013. MEDICATIONS She has been taking aspirin 325 mg daily. She otherwise takes supportive medication, trazodone, Cymbalta, clonidine, losartan, metoprolol and metformin. The patient was given clonidine yesterday when her blood pressure was noted to be elevated. REVIEW OF SYSTEMS She is still having a headache. NEUROLOGICAL EXAMINATION On exam she is actually alert, pleasant and oriented. There is visual field impairment on the left side, though she is able to count fingers on the left side. There is some questionable flattening of the right nasolabial fold. There is no arm or leg paresis on the bedside exam. Speech is clear. Comprehension and language are clear. Reflexes are 1+ and plantar responses were flexor. IMAGING The CT brain was reviewed. LABORATORY Laboratory data all reviewed. White count 22.0, hemoglobin 13.1, platelets 144. Chemistry with normal sodium and potassium, BUN 21, creatinine normal. INR 1.0. ASSESSMENT Right occipital lobe hemorrhage. This could be related to a hypertensive bleed, but also could be a mass. She is scheduled for MRI brain with and without contrast. She is being followed by neurosurgery. I will follow the neurological care as well. Thank you for asking us to assist in her care. MD DARCY Ryan/KEIRY /11:23 AM /11:54 AM
[2016-12-15] MEDS: SODIUM CHLOR 0.9% 1000 ML INJ 1,000 ML IV SCH (12:30)
[2016-12-15] MEDS ORDERED: LORazepam 2 MG/ML VIAL IV PUSH SCH (13:00)
[2016-12-15] MEDS: hydrALAZINE HCL 20 MG/ML VIAL IV PUSH PRN ×2 (13:15→16:59)
[2016-12-15] MEDS ORDERED: GADODIAMIDE PF 287 MG/ML 20 ML VIAL (for RAD MRI) IV ONE (16:26)
--- NOTE | 2016-12-15 17:16 | RADRPT ---
EXAM DATE/TIME: 12/15/2016 15:22 [facility] COMPARISON: CT SIMULATION, October 09, 2014, 14:59. MRI SPECTROSCOPY W/O CONTRAST, December 15, 2016, 15:22. C T BRAIN W/O CONTRAST, December 14, 2016, 22:13. INDICATIONS : Right occipital lobe bleed. CONTRAST: 16 cc Omniscan (gadodiamide) IV MEDICAL HISTORY : Carcinoma, breast. Diabetes mellitus type 2. Hyperthyroidism. SURGICAL HISTORY : Total knee replacement, right. Appendectomy. Tubal ligation. Lumpectomy. Cholecysectomy. ENCOUNTER: Initial ACUITY: 2 day PAIN SCORE: 0/10 LOCATION: cranial TECHNIQUE: Multiplanar, multisequence MRI of the brain was performed both prior to and following the administrat ion of paramagnetic contrast. FINDINGS: CEREBRUM: The ventricles are normal for age. No evidence of midline shift. A focal area of acute hemorrhage is again identified in the right posterior parietal and occipital lobe which measures up to approximate ly 3.9 x 1.7 cm. There is surrounding edema in the white matter with no significant mass effect. The flair weighted images there is high density subarachnoid hemorrhage as well. The pituitary gland and suprasellar cistern are normal in configuration. WHITE MATTER: No significant signal abnormalities are seen in the white matter. POSTERIOR FOSSA: The cerebellum and brainstem are intact. The 4th ventricle is midline. The cerebellopontine angle is unremarkable. The cerebellar tonsils are normal in position. DIFFUSION IMAGING: No focal areas of restricted diffusion are seen. No evidence of acute infarction. EXTRACRANIAL: The visualized portions of the orbits and paranasal sinuses are unremarkable. POST-CONTRAST: There is a small amount of faint enhancement surrounding the hemorrhage. CONCLUSION: Acute hemorrhage again identified in the posterior right parietal and occipital lobe with small amoun t of subarachnoid hemorrhage. There is minimal fine enhancement surrounding this region. Nirav Cortez MD on December 15, 2016 at 17:08 Board Certified Radiologist. This report was verified electronically.
[2016-12-15] MEDS: ATORVASTATIN 80 MG TAB PO SCH (20:52)
--- NOTE | 2016-12-15 23:23 | RADRPT ---
EXAM DATE/TIME: 12/15/2016 15:22 [facility] COMPARISON: MRI BRAIN W & W/O CONTRAST, December 15, 2016, 15:22. INDICATIONS : Right occipital lobe bleed. MEDICAL HISTORY : Carcinoma, breast. Hypertension. Diabetes mellitus type 2. SURGICAL HISTORY : Tubal ligation. Cholecystectomy. Appendectomy. Lumpectomy. ENCOUNTER: Initial ACUITY: 2 day PAIN SCORE: 0/10 LOCATION: cranial TECHNIQUE: Signal and multiple voxel spectroscopy was performed in both the abnormal side and a contralateral no rmal side. FINDINGS: Findings of necrosis at the site of the abnormality with no elevated choline creatine ratio to sugges t neoplasm.. A prominent lactate peak is present there is significant blunting of the SAWYER peak charac teristic of necrosis. CONCLUSION: 1. Findings of necrosis without underlying neoplasm Yash Khan MD on December 15, 2016 at 23:17 Board Certified Radiologist. This report was verified electronically.
[2016-12-16] VITALS (13 sets, daily range): BP systolic 115–171; BP diastolic 54–74; PULSE 48–70; RESP 12–27; TEMP 97.4–98.3; O2SAT 92–100
[2016-12-16] MEDS: hydrALAZINE HCL 20 MG/ML VIAL IV PUSH PRN ×2 (01:14→06:26)
[2016-12-16] MEDS: SODIUM CHLOR 0.9% 1000 ML INJ 1,000 ML IV SCH (01:28)
[2016-12-16] MEDS: ACETAMINOPHEN 1000 MG/100 ML VIAL IV SCH ×4 (05:20→18:28)
[2016-12-16] MEDS: RESP: ALBUTEROL 2.5 MG/3 ML NEB (SCH) INH ×2 (08:18→20:23)
[2016-12-16] MEDS: metFORMIN HCL 500 MG TAB PO SCH (09:00)
--- NOTE | 2016-12-16 09:00 | HHI.PR ---
Review/Management Diagnosis/Plan: (1) Intracranial hemorrhage Plan: New onset acute of right occipital bleed, D/DX includes vasculopathy, hemorrhagic mass. MRI / MRS of the brain with and without contrast is pending. (2) Hypertensive emergency Plan: Blood pressure control with cardene gtt is ordered. She has recently been for a week on IV steroids. A follow up cortisol is low and steroid taper is initiated. Daily Summary 12/16 doing reasonably well headache improved mri brain seen htn care and follow imaging brain studies Subjective Subjective Comments No acute events reported No headache No chest pain No dyspnea Active Medications Current Medications Medications (Trade) Dose Ordered Sig/Lidia Route Start Time Stop Time Status Last Admin Nicardipine HCl 25 mg/Sodium Chloride 260 ml @ 0 mls/hr TITRATE IV 12/14/16 22:30 12/14/16 22:29 (NS 1000 ml Inj) 1,000 ml @ 70 mls/hr [id number] IV 12/14/16 23:12 12/16/16 01:28 (NS Flush) 2 ml UNSCH PRN IVF 12/14/16 23:15 (NS Flush) 2 ml BID IVF 12/15/16 09:00 12/15/16 20:55 (Trandate Inj) 10 mg Q4H PRN IV 12/14/16 23:15 (Catapres) 0.1 mg Q6H PRN PO 12/14/16 23:15 12/15/16 06:18 (Protonix Inj) 40 mg DAILY IVP 12/15/16 09:00 12/15/16 06:45 (Tylenol) 650 mg Q4H PRN PO 12/14/16 23:15 12/15/16 09:24 Morphine Sulfate 4 mg 4 mg Q4H PRN IV 12/14/16 23:30 (Keppra Inj/NS Inj) 105 ml @ 400 mls/hr Q12H IV 12/15/16 00:00 12/15/16 23:09 (Zofran Inj) 4 mg Q6H PRN IV 12/14/16 23:15 12/15/16 03:25 (Colace) 100 mg BID PRN PO 12/14/16 23:15 (Ofirmev Inj) 1,000 mg Q6H IV 12/15/16 00:00 12/16/16 23:59 12/16/16 06:49 (Vitamin C) 1,000 mg DAILY PO 12/15/16 09:00 12/15/16 09:24 (Lipitor) 80 mg HS PO 12/15/16 21:00 12/15/16 20:52 (Catapres) 0.1 mg BID PO 12/15/16 09:00 12/15/16 20:52 (Cymbalta Dr) 60 mg DAILY PO 12/15/16 09:00 12/15/16 09:23 (Flonase Levy Spr) 1 spray DAILY PRN EACH NARE 12/15/16 00:00 (Cozaar) 50 mg DAILY PO 12/15/16 09:00 12/15/16 09:23 (Glucophage) 500 mg DAILY PO 12/15/16 09:00 (Lopressor) 50 mg BID PO 12/15/16 09:00 12/15/16 20:52 (Slo-Niacin) 1,000 mg DAILY PO 12/15/16 09:00 12/15/16 09:24 (Decadron) 4 mg DAILY PO 12/15/16 09:00 12/15/16 09:23 (Apresoline Inj) 10 mg Q2HR PRN IV PUSH 12/15/16 14:00 12/16/16 06:26 Allergies Allergies Coded Allergies Bactrim (Verified Allergy, Severe, RASH/ NAUSEA, 12/14/16) Biaxin (Verified Allergy, Severe, RASH, 12/14/16) Penicillin (Verified Allergy, Severe, RASH, 12/14/16) Aggrenox (Unverified Allergy, Unknown, 12/14/16) Codeine (Unverified Adverse Reaction, Severe, HALLUCINATIONS, 12/14/16) Exam I&O / VS 12/15/16 12/15/16 12/16/16 15:00 23:00 07:00 Intake Total 898 ml 710 ml 452 ml Output Total 500 ml 400 ml 150 ml Balance 398 ml 310 ml 302 ml Intake Oral 300 ml 120 ml 0 ml IV Total 598 ml 590 ml 452 ml Output Urine Total 500 ml 400 ml 150 ml # Voids 3 2 1 # Bowel Movements 0 0 Vital Signs Date Time Temp Pulse Resp B/P Pulse Ox O2 Delivery O2 Flow Rate FiO2 12/16/16 08:19 99 Nasal Cannula 2.00 12/16/16 06:00 64 12/16/16 04:00 97.4 64 25 132/64 98 12/16/16 04:00 64 12/16/16 02:00 66 12/16/16 00:00 98.0 56 27 171/73 99 12/16/16 00:00 56 12/15/16 22:00 58 12/15/16 20:42 96 21 12/15/16 20:30 98 Nasal Cannula 2.00 12/15/16 20:00 84 12/15/16 20:00 98.0 84 12 136/65 98 12/15/16 19:37 77 12/15/16 18:00 82 12/15/16 16:15 30 12/15/16 14:00 58 12/15/16 12:00 98.2 54 24 185/84 94 12/15/16 12:00 54 12/15/16 10:00 56 12/15/16 09:00 94 Room Air Objective Radiology Results Last 48 hours Impressions Brain MRI 12/15/16 0600 Signed Impressions: Service Date/Time: Thursday, December 15, 2016 15:22 - CONCLUSION: Acute hemorrhage again identified in the posterior right parietal and occipital lobe with small amount of subarachnoid hemorrhage. There is minimal fine enhancement surrounding this region. Nirav Cortez MD Spectroscopy MRI 12/15/16 0000 Signed Impressions: Service Date/Time: Thursday, December 15, 2016 15:22 - CONCLUSION: 1. Findings of necrosis without underlying neoplasm Yash Khan MD Micro and Labs Date/Time Procedure Status Source Growth 12/14/16 23:40 Aerobic Blood Culture Received Blood Peripheral Pending 12/14/16 23:40 Anaerobic Blood Culture Received Blood Peripheral Pending Josefina Villa MD Dec 16, 2016 09:00
[2016-12-16] MEDS: SODIUM CHLORIDE 0.9% FLUSH 5 ML FLUSH IVF SCH ×2 (09:30→20:50)
[2016-12-16] MEDS: cloNIDine HCL 0.1 MG TAB PO SCH ×2 (09:30→20:49)
[2016-12-16] MEDS: METOPROLOL TARTRATE 50 MG TAB PO SCH ×2 (09:31→20:49)
[2016-12-16] MEDS: ASCORBIC ACID 500 MG TAB PO SCH (09:31)
[2016-12-16] MEDS: NIACIN 500 MG EXTENDED RELEASE TAB PO SCH (09:31)
[2016-12-16] MEDS: DEXAMETHASONE 4 MG TAB PO SCH (09:33)
[2016-12-16] MEDS: LOSARTAN 50 MG TAB PO SCH (09:33)
[2016-12-16] MEDS: DULoxetine HCl DR 60 MG CAP PO SCH (09:33)
[2016-12-16] MEDS: PANTOPRAZOLE SODIUM 40 MG VIAL IVP SCH (09:35)
[2016-12-16] MEDS: MORPHINE SULFATE 4 MG/ML INJ IV PRN ×2 (09:51→16:08)
--- NOTE | 2016-12-16 11:09 | HHI.NSPN ---
Subjective History 66 yr old with acute onset spontaneous right occipital bleed, with a left superior quadrant visual field loss as well as headaches. MRI/MRS is pending today. GCS is 15 12/16/16 She has lost colour vision on the left but is otherwise stable. She has no motor deficits but has poor appetite. GCS 15 Vitals . Vital Signs Date Time Temp Pulse Resp B/P Pulse Ox O2 Delivery O2 Flow Rate FiO2 12/16/16 08:19 99 Nasal Cannula 2.00 12/16/16 06:00 64 12/16/16 04:00 97.4 64 25 132/64 98 12/16/16 04:00 64 12/16/16 02:00 66 12/16/16 00:00 98.0 56 27 171/73 99 12/16/16 00:00 56 12/15/16 22:00 58 12/15/16 20:42 96 21 12/15/16 20:30 98 Nasal Cannula 2.00 12/15/16 20:00 84 12/15/16 20:00 98.0 84 12 136/65 98 12/15/16 19:37 77 12/15/16 18:00 82 12/15/16 16:15 30 12/15/16 14:00 58 12/15/16 12:00 98.2 54 24 185/84 94 12/15/16 12:00 54 12/15/16 12/15/16 12/16/16 15:00 23:00 07:00 Intake Total 898 ml 710 ml 452 ml Output Total 500 ml 400 ml 150 ml Balance 398 ml 310 ml 302 ml Physical Exam Head Head: Atraumatic Eyes Eyes Remarks left upper quadrant visual field cut unchanged with color vision loss, face symmetric, EOMI Neuro Mental Status: Awake, Oriented x 3 Pupils: Reactive Bilaterally Speech: Clear [place] Coma Scale Best Eye Openin - Spontaneous Best Verbal: 5 - Oriented Best Motor: 6 - Obeys Sensation: Intact Cardiac Cardiac: Regular Rate & Rhythm Respiratory Respiratory: CTA Gastrointestinal Gastrointestinal: Soft Bowel Sounds: Present Genitourinary Genitourinary: Good Urine Output Musculoskeletal Musculoskeletal: Moves all extrem with 5/5 strength Extremities Upper Extremities Deltoid Bicep Tricep HI W. Ext Right Left Lower Extremeties Ilio Quad Plantar Dorsi EHL Right Left Dermatologic Dermatologic: Skin Intact Extremities Edema: SCDs Objective Imaging Remarks Last Impressions Brain MRI 12/15/16 0600 Signed Impressions: Service Date/Time: Thursday, December 15, 2016 15:22 - CONCLUSION: Acute hemorrhage again identified in the posterior right parietal and occipital lobe with small amount of subarachnoid hemorrhage. There is minimal fine enhancement surrounding this region. Nirav Cortez MD Spectroscopy MRI 12/15/16 0000 Signed Impressions: Service Date/Time: Thursday, December 15, 2016 15:22 - CONCLUSION: 1. Findings of necrosis without underlying neoplasm Yash Khan MD Head CT 12/14/16 0000 Signed Impressions: Service Date/Time: Wednesday, December 14, 2016 22:13 - CONCLUSION: 1. Acute 4 cm x 1.7 cm hemorrhage in the right occipital lobe with some surrounding edema and localized mass effect and trace extra-axial hemorrhage as well. Kenneth Driver MD Assessment & Plan Diagnosis: (1) Intracranial hemorrhage Plan: New onset acute of right occipital bleed, D/DX includes vasculopathy, hemorrhagic mass. MRI / MRS of the brain with and without contrast sows no underlying mass. Encephalitis/vasculopathy is suspected. Decadron low dose is continued. (2) Hypertensive emergency Plan: Blood pressure control with cardene gtt is ordered. She has recently been for a week on IV steroids. A follow up cortisol is low and steroid taper is initiated. Jay Patel Dec 16, 2016 11:09
[2016-12-16] MEDS: NS + KCL 20 MEQ INJ 1,000 ML IV SCH (13:53)
[2016-12-16 15:41] LABS: AUTOMATED NEUTROPHIL # 13.1 TH/MM3 (1.8-7.7); BASOPHIL % 0.2 % (0.0-2.0); EOSINOPHIL # 0.1 TH/MM3 (0-0.4); EOSINOPHIL % 0.9 % (0.0-4.0); HEMATOCRIT 38.2 % (35.0-46.0); LYMPH % 5.9 % (9.0-44.0); LYMPHOCYTE # 0.9 TH/MM3 (1.0-4.8); MEAN CELL VOLUME 96.5 FL (80.0-100.0); MEAN CORPUSCULAR HEMOGLOBIN 29.8 PG (27.0-34.0); MEAN CORPUSCULAR HGB CONC 30.9 % (32.0-36.0); MONO % 4.9 % (0.0-8.0); NEUT % 88.1 % (16.0-70.0); PLATELET COUNT 192 TH/MM3 (150-450); RED BLOOD COUNT 3.96 MIL/MM3 (4.00-5.30); RED CELL DISTRIBUTION WIDTH 14.1 % (11.6-17.2); WHITE BLOOD COUNT 14.9 TH/MM3 (4.0-11.0)
[2016-12-16 15:42] LABS: HEMO FLAGS DIFF FINAL
[2016-12-16 16:05] LABS: BICARBONATE 22.5 MEQ/L (21.0-32.0)
[2016-12-16 16:09] LABS: POTASSIUM 5.1 MEQ/L (3.5-5.1)
--- NOTE | 2016-12-16 17:19 | PD.CONS ---
HPI Service [facility] Hospitalists Consult Requested By Dr. Patel, Neurosurgeon Primary Care Physician Carmelo Cross MD Diagnoses: History of Present Illness Patient is a pleasant 66-year-old female with history of hypertension, coronary artery disease, type 2 diabetes, and previous multiple TIAs. Patient presented to the hospital with complaint of severe headache and left visual field disturbance. Patient was admitted to the neurosurgical service, Dr. Patel. Patient was found to have had a spontaneous, right occipital bleed with left superior quadrant visual field loss. Patient is being managed conservatively. Medical team has been consult to assist with chronic medical issues. Review of Systems Constitutional: DENIES: Diaphoretic episodes, Fatigue, Fever, Weight gain, Weight loss, Chills, Dizziness, Change in appetite, Night Sweats Endocrine: DENIES: Heat/cold intolerance, Polydipsia, Polyuria, Polyphagia Eyes: COMPLAINS OF: Vision loss, DENIES: Blurred vision, Diplopia, Eye inflammation, Eye pain, Photosensitivity, Double Vision Ears, nose, mouth, throat: DENIES: Tinnitus, Hearing loss, Vertigo, Nasal discharge, Oral lesions, Throat pain, Hoarseness, Ear Pain, Running Nose, Epistaxis, Sinus Pain, Toothache, Odynophagia Respiratory: DENIES: Apneas, Cough, Snoring, Wheezing, Hemoptysis, Sputum production, Shortness of breath Cardiovascular: DENIES: Chest pain, Palpitations, Syncope, Dyspnea on Exertion , PND, Lower Extremity Edema, Orthopnea, Claudication Gastrointestinal: DENIES: Abdominal pain, Black stools, Bloody stools, BRB per rectum, Constipation, Diarrhea, GERD, Nausea, Reflux, Vomiting, Difficulty Swallowing, Anorexia Genitourinary: COMPLAINS OF: Dysmenorrhea, DENIES: Urinary frequency, Urinary incontinence, Urgency, Hematuria, Dysuria, Nocturia Musculoskeletal: DENIES: Joint pain, Muscle aches, Stiffness, Joint Swelling, Back pain, Neck pain Integumentary: DENIES: Abnormal pigmentation, Pruritus, Rash, Nail changes, Breast masses, Breast skin changes, Nipple discharge Hematologic/lymphatic: DENIES: Bruising, Lymphadenopathy Immunologic/allergic: DENIES: Eczema, Urticaria Neurologic: COMPLAINS OF: Headache, DENIES: Abnormal gait, Localized weakness , Paresthesias, Seizures, Speech Problems, Tremor, Poor Balance Psychiatric: DENIES: Anxiety, Confusion, Mood changes, Depression, Hallucinations, Agitation, Suicidal Ideation, Homicidal Ideation, Delusions, History of Bipolar, History of Schizophrenia Past Family Social History Past Medical History 1) hypertension 2) coronary artery disease 3) history of prior TIAs 4) hyperlipidemia 5) diabetes, type II 6) history of arrhythmia 7) breast cancer, left breast - Last dose of radiation therapy completed 11/24/14 8) osteoarthritis 9) COPD Past Surgical History 1) appendectomy 2) cholecystectomy 3) right knee surgery Reported Medications Reported Meds & Active Scripts Active Reported Flonase Allergy Relief Children Nasal Beccaria (Fluticasone Nasal Beccaria) 50 Mcg/ Act Beccaria 1 Beccaria EACH NARE DAILY PRN 50 mcg/spray Montelukast (Montelukast Sodium) 10 Mg Tab 10 Mg PO HS Vitamin C (Ascorbic Acid) 1,000 Mg Tab 1,000 Mg PO DAILY Niacin 500 Mg Tab 1,000 Mg PO DAILY Omeprazole 20 Mg Tab 20 Mg PO BID Trazodone (Trazodone HCl) 100 Mg Tab 100 Mg PO HS Cymbalta DR (Duloxetine HCl) 60 Mg Capdr 60 Mg PO DAILY Vitamin D (Ergocalciferol) 50,000 Unit Cap 900 Units PO Q7D Calcium + D & K (Calcium-Vitamins D & K) 500-1,000-40 Mg-Unit-Mcg Chew 900 Tab CHEW Lipitor (Atorvastatin Calcium) 80 Mg Tab 80 Mg PO HS Clonidine (Clonidine HCl) 0.1 Mg Tab 0.1 Mg PO BID Losartan (Losartan Potassium) 50 Mg Tab 50 Mg PO DAILY Metoprolol Tartrate 50 Mg Tab 50 Mg PO BID Metformin (Metformin HCl) 500 Mg Tab 500 Mg PO DAILY With a meal Albuterol Neb (Albuterol Sulfate) 2.5 Mg/3 Ml Neb 2.5 Mg NEB BID Aspirin 325 Mg Tab 325 Mg PO ONCE Allergies: Coded Allergies: Bactrim (Verified Allergy, Severe, RASH/ NAUSEA, 12/14/16) Biaxin (Verified Allergy, Severe, RASH, 12/14/16) Penicillin (Verified Allergy, Severe, RASH, 12/14/16) Aggrenox (Unverified Allergy, Unknown, 12/14/16) Codeine (Unverified Adverse Reaction, Severe, HALLUCINATIONS, 12/14/16) Family History Noncontributory Social History No tobacco use No illicit street drugs No alcohol Physical Exam Vital Signs Vital Signs Date Time Temp Pulse Resp B/P Pulse Ox O2 Delivery O2 Flow Rate FiO2 12/16/16 16:00 48 12/16/16 14:00 54 12/16/16 12:00 56 12/16/16 12:00 98.3 56 18 115/54 97 12/16/16 10:00 70 12/16/16 08:19 99 Nasal Cannula 2.00 12/16/16 08:00 57 12/16/16 08:00 98.0 56 18 123/60 100 12/16/16 07:00 99 Nasal Cannula 2.00 12/16/16 06:00 64 12/16/16 04:00 97.4 64 25 132/64 98 12/16/16 04:00 64 12/16/16 02:00 66 12/16/16 00:00 98.0 56 27 171/73 99 12/16/16 00:00 56 12/15/16 22:00 58 12/15/16 20:42 96 21 12/15/16 20:30 98 Nasal Cannula 2.00 12/15/16 20:00 84 12/15/16 20:00 98.0 84 12 136/65 98 12/15/16 19:37 77 12/15/16 18:00 82 Physical Exam GENERAL: This is a well-nourished, well-developed patient, in no apparent distress. SKIN: No rashes, ecchymoses or lesions. Cool and dry. HEAD: Atraumatic. Normocephalic. No temporal or scalp tenderness. EYES: Pupils equal round and reactive. Extraocular motions intact. No scleral icterus. No injection or drainage. ENT: Nose without bleeding, purulent drainage or septal hematoma. Throat without erythema, tonsillar hypertrophy or exudate. Uvula midline. Airway patent. NECK: Trachea midline. No JVD or lymphadenopathy. Supple, nontender, no meningeal signs. CARDIOVASCULAR: Regular rate and rhythm without murmurs, gallops, or rubs. RESPIRATORY: Clear to auscultation. Breath sounds equal bilaterally. No wheezes , rales, or rhonchi. GASTROINTESTINAL: Abdomen soft, non-tender, nondistended. No hepato-splenomegaly , or palpable masses. No guarding. MUSCULOSKELETAL: Extremities without clubbing, cyanosis, or edema. No joint tenderness, effusion, or edema noted. No calf tenderness. Negative Homans sign bilaterally. NEUROLOGICAL: Awake and alert. Cranial nerves II through XII intact. Motor and sensory grossly within normal limits. Five out of 5 muscle strength in all muscle groups. Normal speech. Laboratory Laboratory Tests Test 12/16/16 15:23 White Blood Count 14.9 Red Blood Count 3.96 Hemoglobin 11.8 Hematocrit 38.2 Mean Corpuscular Volume 96.5 Mean Corpuscular Hemoglobin 29.8 Mean Corpuscular Hemoglobin 30.9 Concent Red Cell Distribution Width 14.1 Platelet Count 192 Mean Platelet Volume 9.2 Neutrophils (%) (Auto) 88.1 Lymphocytes (%) (Auto) 5.9 Monocytes (%) (Auto) 4.9 Eosinophils (%) (Auto) 0.9 Basophils (%) (Auto) 0.2 Neutrophils # (Auto) 13.1 Lymphocytes # (Auto) 0.9 Monocytes # (Auto) 0.7 Eosinophils # (Auto) 0.1 Basophils # (Auto) 0.0 CBC Comment DIFF FINAL Differential Comment Sodium Level 138 Potassium Level 5.1 Chloride Level 108 Carbon Dioxide Level 22.5 Anion Gap 8 Blood Urea Nitrogen 18 Creatinine 1.02 Estimat Glomerular Filtration 54 Rate Random Glucose 175 Calcium Level 8.2 C-Reactive Protein 0.64 Date/Time Procedure Status Source Growth 12/14/16 23:40 Aerobic Blood Culture - Preliminary Resulted Blood Peripheral NO GROWTH IN 1 DAY 12/14/16 23:40 Anaerobic Blood Culture - Preliminary Resulted Blood Peripheral NO GROWTH IN 1 DAY Result Diagram: 12/16/16 1523 12/16/16 1523 Imaging Last Impressions Brain MRI 12/15/16 0600 Signed Impressions: Service Date/Time: Thursday, December 15, 2016 15:22 - CONCLUSION: Acute hemorrhage again identified in the posterior right parietal and occipital lobe with small amount of subarachnoid hemorrhage. There is minimal fine enhancement surrounding this region. Nirav Cortez MD Spectroscopy MRI 12/15/16 0000 Signed Impressions: Service Date/Time: Thursday, December 15, 2016 15:22 - CONCLUSION: 1. Findings of necrosis without underlying neoplasm Yash Khan MD Head CT 12/14/16 0000 Signed Impressions: Service Date/Time: Wednesday, December 14, 2016 22:13 - CONCLUSION: 1. Acute 4 cm x 1.7 cm hemorrhage in the right occipital lobe with some surrounding edema and localized mass effect and trace extra-axial hemorrhage as well. Kenneth Driver MD Assessment and Plan Problem List: (1) Hemorrhagic stroke Status: Acute Plan: - Comanagement with neurosurgery, Dr. Patel - conservative mgmt - kepra - BP mgmt (2) HTN (hypertension) Status: Acute Plan: - now stable - cozaar, metoprolol - prn catapress, prn vasotec (3) Diabetes Status: Chronic (4) COPD (chronic obstructive pulmonary disease) Status: Chronic (5) Hyperlipidemia Status: Acute Problem Qualifiers (1) HTN (hypertension): Qualified Code: I10 - Essential hypertension (2) Diabetes: Qualified Code: E11.8 - Type 2 diabetes mellitus with complication, without long-term current use of insulin Arley Velasco DO Dec 16, 2016 17:19
[2016-12-16] MEDS: levETIRAcetam 500 MG TAB PO SCH (20:49)
[2016-12-16] MEDS: ATORVASTATIN 80 MG TAB PO SCH (20:49)
[2016-12-16] MEDS: LORazepam 2 MG/ML VIAL IV PUSH PRN (20:49)
[2016-12-16] MEDS: INSULIN ASPART SUPPLEMENTAL SCALE SQ SCH (21:00)
[2016-12-17] VITALS (14 sets, daily range): BP systolic 104–184; BP diastolic 55–74; PULSE 14–76; RESP 12–22; TEMP 98.2–98.4; O2SAT 91–96
[2016-12-17] MEDS: NS + KCL 20 MEQ INJ 1,000 ML IV SCH (01:20)
[2016-12-17] MEDS: LORazepam 2 MG/ML VIAL IV PUSH PRN ×3 (05:49→20:53)
[2016-12-17] MEDS: MORPHINE SULFATE 4 MG/ML INJ IV PRN ×2 (05:49→17:23)
[2016-12-17] MEDS: INSULIN ASPART SUPPLEMENTAL SCALE SQ SCH ×4 (06:49→20:44)
[2016-12-17] MEDS: metFORMIN HCL 500 MG TAB PO SCH (07:42)
--- NOTE | 2016-12-17 07:57 | PQ ---
Physician Query Response Document PATIENT: FERNANDO WILKES : 1950 ADMIT DATE: 12/14/2016 11:25 PM DISCH DATE: RESPONDING PROVIDER #: [email or web address] QUERY TEXT: Clarification of Clinical Diagnostic Findings Based on your medical judgment, can you further clarify which, if any, of the following this condit ion is intended to indicate. ? Compression of the brain ? Cerebral edema ? Other (*please specify) ? Unable to determine (*please explain) The patient's Clinical Indicators include: CT hemorrhage in right occipital lobe w some surrounding edema and localized mass effect and trace ax ial hemorrhage as well Query created by: Makayla Tinoco on 12/15/2016 4:11 PM RESPONSE TEXT: Documented in the notes, mass effect with loss of visual field and color vision. Electronically signed by: Jay Patel MD 12/17/2016 7:53 AM
[2016-12-17] MEDS: RESP: ALBUTEROL 2.5 MG/3 ML NEB (SCH) INH ×2 (08:00→19:53)
--- NOTE | 2016-12-17 08:03 | HHI.NSPN ---
Subjective History 66 yr old with acute onset spontaneous right occipital bleed, with a left superior quadrant visual field loss as well as headaches. MRI/MRS is pending today. GCS is 15 12/16/16 She has lost colour vision on the left but is otherwise stable. She has no motor deficits but has poor appetite. GCS 15 12/17/16 She is more awake today. She still has a left visual field quadrant anopsia but is able to see pink this am. She is willing to eat this am and to participate in rehab. Vitals . Vital Signs Date Time Temp Pulse Resp B/P Pulse Ox O2 Delivery O2 Flow Rate FiO2 12/17/16 07:00 94 Room Air 12/17/16 06:00 14 12/17/16 04:00 48 12/17/16 04:00 98.2 48 22 167/72 96 12/17/16 02:00 50 12/17/16 00:00 50 12/17/16 00:00 98.4 50 18 139/71 96 12/16/16 22:00 58 12/16/16 20:00 52 12/16/16 20:00 98.2 52 12 115/56 100 12/16/16 20:00 96 Nasal Cannula 2.00 12/16/16 18:00 52 12/16/16 16:00 48 12/16/16 16:00 98.3 48 19 156/74 92 12/16/16 14:00 54 12/16/16 12:00 56 12/16/16 12:00 98.3 56 18 115/54 97 12/16/16 10:00 70 12/16/16 08:19 99 Nasal Cannula 2.00 12/16/16 08:00 57 12/16/16 08:00 98.0 56 18 123/60 100 12/16/16 12/16/16 12/17/16 15:00 23:00 07:00 Intake Total 1166 ml 490 ml 773 ml Output Total 150 ml Balance 1016 ml 490 ml 773 ml Physical Exam Head Head: Atraumatic Eyes Eyes: Pupils Equal Eyes Remarks left upper quadrant visual field cut improved finger counting and color, face symmetric, EOMI Neuro Mental Status: Awake Henderson Coma Scale Best Eye Openin - Spontaneous Best Verbal: 5 - Oriented Best Motor: 6 - Obeys Total Glascow Coma Scale (GCS): 15 Sensation: Intact Cardiac Cardiac: Regular Rate & Rhythm Respiratory Respiratory: CTA Gastrointestinal Gastrointestinal: Soft Musculoskeletal Musculoskeletal: Moves all extrem with 5/5 strength Extremities Upper Extremities Deltoid Bicep Tricep HI W. Ext Right Left Lower Extremeties Ilio Quad Plantar Dorsi EHL Right Left Dermatologic Dermatologic: Skin Intact Extremities Edema: SCDs Objective Infectious Disease Cultures Microbiology Date/Time Procedure Status Source Growth 12/17/16 05:02 Aerobic Blood Culture Received Blood Peripheral Pending 12/17/16 05:02 Anaerobic Blood Culture Received Blood Peripheral Pending Labs Laboratory Tests 12/16/16 15:23 Laboratory Tests Test 12/16/16 15:23 Sodium Level 138 MEQ/L Potassium Level 5.1 MEQ/L Chloride Level 108 MEQ/L Carbon Dioxide Level 22.5 MEQ/L Anion Gap 8 MEQ/L Blood Urea Nitrogen 18 MG/DL Creatinine 1.02 MG/DL Estimat Glomerular Filtration 54 ML/MIN Rate Random Glucose 175 MG/DL Calcium Level 8.2 MG/DL C-Reactive Protein 0.64 MG/DL Assessment & Plan Diagnosis: (1) Intracranial hemorrhage Plan: New onset acute of right occipital bleed, D/DX includes vasculopathy, hemorrhagic mass. MRI / MRS of the brain with and without contrast shows no underlying tumor at this time. Encephalitis/vasculopathy is suspected. Decadron relative low dose is continued. 12/17/16 Improvement noted, will decrease the IVF and tx to the floor. (2) Hypertensive emergency Plan: Blood pressure control with cardene gtt is ordered. She has recently been for a week on IV steroids. A follow up cortisol is low and steroid taper is initiated. Jay Patel Dec 17, 2016 08:03
[2016-12-17] MEDS: PANTOPRAZOLE SODIUM 40 MG VIAL IVP SCH (08:47)
[2016-12-17] MEDS: SODIUM CHLORIDE 0.9% FLUSH 5 ML FLUSH IVF SCH ×2 (08:47→20:45)
[2016-12-17] MEDS: cloNIDine HCL 0.1 MG TAB PO SCH ×2 (08:48→20:44)
[2016-12-17] MEDS: LOSARTAN 50 MG TAB PO SCH (08:48)
[2016-12-17] MEDS: DULoxetine HCl DR 60 MG CAP PO SCH (08:48)
[2016-12-17] MEDS: DEXAMETHASONE 4 MG TAB PO SCH (08:48)
[2016-12-17] MEDS: levETIRAcetam 500 MG TAB PO SCH ×2 (08:49→20:43)
[2016-12-17] MEDS: NIACIN 500 MG EXTENDED RELEASE TAB PO SCH (08:50)
[2016-12-17] MEDS: METOPROLOL TARTRATE 50 MG TAB PO SCH ×2 (08:50→20:44)
[2016-12-17] MEDS: ASCORBIC ACID 500 MG TAB PO SCH (08:50)
[2016-12-17] MEDS: ACETAMINOPHEN/HYDROcodone 325 MG/5 MG TAB PO PRN ×2 (11:47→20:44)
[2016-12-17] MEDS: ONDANSETRON HCL 4 MG/2 ML VIAL IV PRN (15:32)
[2016-12-17] MEDS: ATORVASTATIN 80 MG TAB PO SCH (20:44)
[2016-12-18] VITALS (9 sets, daily range): BP systolic 111–185; BP diastolic 55–84; PULSE 52–78; RESP 12–20; TEMP 96.3–98.9; O2SAT 93–97
[2016-12-18] MEDS: ONDANSETRON HCL 4 MG/2 ML VIAL IV PRN (01:53)
[2016-12-18] MEDS: MORPHINE SULFATE 4 MG/ML INJ IV PRN (01:54)
[2016-12-18] MEDS: LORazepam 2 MG/ML VIAL IV PUSH PRN (02:11)
[2016-12-18] MEDS: cloNIDine HCL 0.1 MG TAB PO PRN (02:42)
[2016-12-18] MEDS: INSULIN ASPART SUPPLEMENTAL SCALE SQ SCH ×4 (06:23→21:32)
[2016-12-18 07:36] LABS: BICARBONATE 26.7 MEQ/L (21.0-32.0); MAGNESIUM 2.1 MG/DL (1.5-2.5); POTASSIUM 4.3 MEQ/L (3.5-5.1)
[2016-12-18] MEDS ORDERED: FUROSEMIDE 20 MG TAB PO ONE (08:00)
--- NOTE | 2016-12-18 08:29 | HHI.NSPN ---
History Chief Complaint: none Interval History 66 yr old with hx of Fabiola's and DM presented with a left visual field deficit and hemorrhage in the right occipital region. She has a stable left field deficit with loss of color vision. The right visual field is not full at this time. The CRP is mildly elevated but she has been on steroids in a moderate dose because of HTN and hyperglycemia. Dr Roth is following. Review of Systems General: Negative for: fever, chills, insomnia Respiratory: Negative for: shortness of breath, cough, sputum Cardiovascular: Negative for: chest pain, palpitations, orthopnea Gastrointestinal: Negative for: nausea, vomitting, diarrhea, constipation Exam Results Vital Signs Date Time Temp Pulse Resp B/P Pulse Ox O2 Delivery O2 Flow Rate FiO2 12/18/16 08:14 78 12/18/16 07:59 Room Air 12/18/16 04:40 97.1 20 185/84 94 12/17/16 19:54 21 12/16/16 20:00 2.00 Intake and Output 12/17/16 12/17/16 12/18/16 08:00 16:00 00:00 Intake Total 773 ml 574 ml 480 ml Balance 773 ml 574 ml 480 ml Physical Examination Alert, anxious, counting and reading on the right better than on the left, hearing prothesis being used at this time. Left visual field color blindness Pupils equal, EOMI, face symmetric, oriented x 3 No pronator drift, Moves all ext 5/5. No neglect, no sensory loss in the upper extremities. RRR, lungs with good aeration, BS hyperactive, abd non tender. Skin dry Balance affected by visual loss, uses a cane and a walker prn. Lab, Micro, Other Results Last Impressions Brain MRI 12/15/16 0600 Signed Impressions: Service Date/Time: Thursday, December 15, 2016 15:22 - CONCLUSION: Acute hemorrhage again identified in the posterior right parietal and occipital lobe with small amount of subarachnoid hemorrhage. There is minimal fine enhancement surrounding this region. Nirav Cortez MD Spectroscopy MRI 12/15/16 0000 Signed Impressions: Service Date/Time: Thursday, December 15, 2016 15:22 - CONCLUSION: 1. Findings of necrosis without underlying neoplasm Yash Khan MD Head CT 12/14/16 0000 Signed Impressions: Service Date/Time: Wednesday, December 14, 2016 22:13 - CONCLUSION: 1. Acute 4 cm x 1.7 cm hemorrhage in the right occipital lobe with some surrounding edema and localized mass effect and trace extra-axial hemorrhage as well. Kenneth Driver MD Laboratory Tests Test 12/18/16 06:23 Sodium Level 140 MEQ/L Potassium Level 4.3 MEQ/L Chloride Level 106 MEQ/L Carbon Dioxide Level 26.7 MEQ/L Anion Gap 7 MEQ/L Blood Urea Nitrogen 19 MG/DL Creatinine 0.88 MG/DL Estimat Glomerular Filtration 64 ML/MIN Rate Random Glucose 89 MG/DL Calcium Level 8.5 MG/DL Phosphorus Level 2.8 MG/DL Magnesium Level 2.1 MG/DL Medical Decision Making Impression and Plan Stable visual field deficit, possible autoimmune vasculitis, no low dose decadron. BP control per the medicine service, one dose of lasix was given this am because of positive fluid balance. Plan OT/PT today, possible discharge tomorrow if the BP control is good. Total Minutes: 10 Jay Patel Dec 18, 2016 08:29
[2016-12-18] MEDS ORDERED: PILL SPLITTER OTHER PRN (08:30)
[2016-12-18] MEDS: RESP: ALBUTEROL 2.5 MG/3 ML NEB (SCH) INH (08:40)
[2016-12-18] MEDS: PANTOPRAZOLE SODIUM 40 MG VIAL IVP SCH (09:00)
[2016-12-18] MEDS: NIACIN 500 MG EXTENDED RELEASE TAB PO SCH (09:00)
[2016-12-18] MEDS: metFORMIN HCL 500 MG TAB PO SCH (09:00)
[2016-12-18] MEDS: METOPROLOL TARTRATE 50 MG TAB PO SCH ×2 (09:00→21:25)
[2016-12-18] MEDS: ASCORBIC ACID 500 MG TAB PO SCH (09:22)
[2016-12-18] MEDS: LOSARTAN 50 MG TAB PO SCH (09:23)
[2016-12-18] MEDS: cloNIDine HCL 0.1 MG TAB PO SCH ×2 (09:23→21:25)
[2016-12-18] MEDS: DEXAMETHASONE 4 MG TAB PO SCH (09:23)
[2016-12-18] MEDS: DULoxetine HCl DR 60 MG CAP PO SCH (09:23)
[2016-12-18] MEDS: levETIRAcetam 500 MG TAB PO SCH ×2 (09:23→21:25)
[2016-12-18] MEDS: SODIUM CHLORIDE 0.9% FLUSH 5 ML FLUSH IVF SCH ×2 (09:24→21:25)
[2016-12-18] MEDS: ACETAMINOPHEN/HYDROcodone 325 MG/5 MG TAB PO PRN (12:07)
[2016-12-18] MEDS ORDERED: LEVE500 PO (14:04)
[2016-12-18] MEDS ORDERED: CLON0.1T PO (14:04)
[2016-12-18] MEDS ORDERED: DEXA2TAB PO (14:04)
[2016-12-18] MEDS ORDERED: HYDR-3516 PO (14:04)
--- NOTE | 2016-12-18 18:10 | HHI.PR ---
Review/Management Diagnosis/Plan: (1) Intracranial hemorrhage Plan: New onset acute of right occipital bleed, D/DX includes vasculopathy, hemorrhagic mass. MRI / MRS of the brain with and without contrast shows no underlying tumor at this time. Encephalitis/vasculopathy is suspected. Decadron relative low dose is continued. 12/17/16 Improvement noted, will decrease the IVF and tx to the floor. (2) Hypertensive emergency Plan: Blood pressure control with cardene gtt is ordered. She has recently been for a week on IV steroids. A follow up cortisol is low and steroid taper is initiated. Daily Summary 12/16 doing reasonably well headache improved mri brain seen htn care and follow imaging brain studies 12/18 she is stable overall i will request MR venous and hypercoag profile office f/u in 2 weeks Subjective Subjective Comments No acute events reported No seizures Active Medications Current Medications Medications (Trade) Dose Ordered Sig/Lidia Route Start Time Stop Time Status Last Admin (NS Flush) 2 ml UNSCH PRN IVF 12/14/16 23:15 (NS Flush) 2 ml BID IVF 12/15/16 09:00 12/18/16 09:24 (Catapres) 0.1 mg Q6H PRN PO 12/14/16 23:15 12/18/16 02:42 (Protonix Inj) 40 mg DAILY IVP 12/15/16 09:00 12/18/16 09:00 (Tylenol) 650 mg Q4H PRN PO 12/14/16 23:15 12/15/16 09:24 (Morphine Inj) 4 mg Q4H PRN IV 12/14/16 23:30 12/18/16 01:54 (Zofran Inj) 4 mg Q6H PRN IV 12/14/16 23:15 12/18/16 01:53 (Colace) 100 mg BID PRN PO 12/14/16 23:15 (Vitamin C) 1,000 mg DAILY PO 12/15/16 09:00 12/18/16 09:22 (Lipitor) 80 mg HS PO 12/15/16 21:00 12/17/16 20:44 (Catapres) 0.1 mg BID PO 12/15/16 09:00 12/18/16 09:23 (Cymbalta Dr) 60 mg DAILY PO 12/15/16 09:00 12/18/16 09:23 (Flonase Levy Spr) 1 spray DAILY PRN EACH NARE 12/15/16 00:00 (Cozaar) 50 mg DAILY PO 12/15/16 09:00 12/18/16 09:23 (Glucophage) 500 mg DAILY PO 12/15/16 09:00 (Lopressor) 50 mg BID PO 12/15/16 09:00 12/18/16 09:00 (Slo-Niacin) 1,000 mg DAILY PO 12/15/16 09:00 12/18/16 09:00 (Keppra) 500 mg Q12HR PO 12/16/16 21:00 12/18/16 09:23 (Haworth 5-325 Mg) 1 tab Q6H PRN PO 12/16/16 12:00 12/18/16 12:07 (Ativan Inj) 0.5 mg Q6H PRN IV PUSH 12/16/16 17:30 12/18/16 02:11 (Pill Splitter) 1 ea UNSCH PRN OTHER 12/18/16 08:30 (Decadron) 2 mg DAILY PO 12/19/16 09:00 Allergies Allergies Coded Allergies Bactrim (Verified Allergy, Severe, RASH/ NAUSEA, 12/14/16) Biaxin (Verified Allergy, Severe, RASH, 12/14/16) Penicillin (Verified Allergy, Severe, RASH, 12/14/16) Aggrenox (Unverified Allergy, Unknown, 12/14/16) Codeine (Unverified Adverse Reaction, Severe, HALLUCINATIONS, 12/14/16) Exam I&O / VS 12/17/16 12/17/16 12/18/16 15:00 23:00 07:00 Intake Total 574 ml 480 ml Balance 574 ml 480 ml Intake Oral 480 ml 480 ml IV Total 94 ml # Voids 2 3 2 Vital Signs Date Time Temp Pulse Resp B/P Pulse Ox O2 Delivery O2 Flow Rate FiO2 12/18/16 15:25 97.7 66 19 111/79 96 12/18/16 11:10 96.3 64 19 114/55 97 12/18/16 08:42 94 21 12/18/16 08:14 78 12/18/16 07:59 Room Air 12/18/16 07:20 97.8 76 19 130/71 96 12/18/16 04:40 97.1 55 20 185/84 94 12/18/16 02:00 52 12/18/16 00:00 98.9 52 12 169/74 93 12/18/16 00:00 52 12/17/16 22:00 60 12/17/16 20:00 93 Room Air 12/17/16 20:00 98.4 76 16 165/74 93 12/17/16 20:00 76 12/17/16 19:54 94 21 Objective Micro and Labs Laboratory Tests Test 12/18/16 06:23 Sodium Level 140 Potassium Level 4.3 Chloride Level 106 Carbon Dioxide Level 26.7 Anion Gap 7 Blood Urea Nitrogen 19 Creatinine 0.88 Estimat Glomerular Filtration 64 Rate Random Glucose 89 Calcium Level 8.5 Phosphorus Level 2.8 Magnesium Level 2.1 Date/Time Procedure Status Source Growth 12/17/16 05:02 Aerobic Blood Culture - Preliminary Resulted Blood Peripheral NO GROWTH IN 1 DAY 12/17/16 05:02 Anaerobic Blood Culture - Preliminary Resulted Blood Peripheral NO GROWTH IN 1 DAY Josefina Vlila MD Dec 18, 2016 18:10
[2016-12-18] MEDS: ATORVASTATIN 80 MG TAB PO SCH (21:25)
[2016-12-19] VITALS (8 sets, daily range): BP systolic 122–178; BP diastolic 57–78; PULSE 52–66; RESP 16–20; TEMP 95.7–98.1; O2SAT 92–97
[2016-12-19] MEDS: LORazepam 2 MG/ML VIAL IV PUSH PRN ×3 (01:21→17:07)
[2016-12-19] MEDS: INSULIN ASPART SUPPLEMENTAL SCALE SQ SCH ×4 (06:46→22:08)
[2016-12-19 07:15] LABS: BICARBONATE 29.4 MEQ/L (21.0-32.0); POTASSIUM 3.9 MEQ/L (3.5-5.1)
[2016-12-19] MEDS: ASCORBIC ACID 500 MG TAB PO SCH (09:20)
[2016-12-19] MEDS: metFORMIN HCL 500 MG TAB PO SCH (09:20)
[2016-12-19] MEDS: DULoxetine HCl DR 60 MG CAP PO SCH (09:20)
[2016-12-19] MEDS: cloNIDine HCL 0.1 MG TAB PO SCH ×2 (09:23→22:06)
[2016-12-19] MEDS: NIACIN 500 MG EXTENDED RELEASE TAB PO SCH (09:23)
[2016-12-19] MEDS: LOSARTAN 50 MG TAB PO SCH (09:23)
[2016-12-19] MEDS: levETIRAcetam 500 MG TAB PO SCH ×2 (09:23→22:06)
[2016-12-19] MEDS: METOPROLOL TARTRATE 50 MG TAB PO SCH ×2 (09:24→21:00)
[2016-12-19] MEDS: DEXAMETHASONE 4 MG TAB PO SCH (09:24)
[2016-12-19] MEDS: PANTOPRAZOLE SODIUM 40 MG VIAL IVP SCH (09:24)
[2016-12-19] MEDS: SODIUM CHLORIDE 0.9% FLUSH 5 ML FLUSH IVF SCH ×2 (09:25→22:07)
[2016-12-19] MEDS: ACETAMINOPHEN/HYDROcodone 325 MG/5 MG TAB PO PRN ×2 (09:31→14:01)
[2016-12-19] MEDS: DOCUSATE SODIUM 100 MG CAP PO PRN ×2 (09:40→22:17)
--- NOTE | 2016-12-19 13:09 | RADRPT ---
EXAM DATE/TIME: 12/19/2016 11:14 COMPARISON: MRI SPECTROSCOPY W/O CONTRAST, December 15, 2016, 15:22. MRI BRAIN W & W/O CONTRAST, December 15 017, 15:22. INDICATIONS : Thrombosis. CONTRAST: 20 cc Omniscan (gadodiamide) IV MEDICAL HISTORY : Carcinoma, breast. Diabetes mellitus type 2. Hypertension. SURGICAL HISTORY : Total knee replacement, right. Appendectomy. Cholecystectomy. ENCOUNTER: Subsequent ACUITY: 1 week PAIN SCORE: 4/10 LOCATION: Head FINDINGS: There is excellent visualization of the superficial and deep cerebral veins. There is no evidence fo r a venous thrombosis. CONCLUSION: Negative for deep venous thrombosis as a source of the cortical hemorrhage. Hernandez Kwon MD FACR on December 19, 2016 at 12:36 Board Certified Radiologist. This report was verified electronically.
--- NOTE | 2016-12-19 15:12 | HHI.PR ---
Subjective Remarks Pt has been agitated at times overnight and this morning. Objective Vitals Vital Signs Date Time Temp Pulse Resp B/P Pulse Ox O2 Delivery O2 Flow Rate FiO2 12/19/16 12:58 97 Nasal Cannula 21 12/19/16 12:40 98.1 54 18 178/78 92 12/19/16 10:31 18 12/19/16 09:20 Room Air 12/19/16 08:34 97.7 66 18 165/78 93 12/19/16 04:00 97.2 56 20 148/68 93 12/19/16 00:00 97.4 54 20 147/70 92 12/18/16 20:00 97.3 64 20 174/75 95 12/18/16 20:00 72 12/18/16 20:00 Room Air 12/18/16 18:28 12/18/16 15:25 97.7 66 19 111/79 96 12/18/16 12/18/16 12/19/16 15:00 23:00 07:00 Intake Total 250 ml 0 ml Balance 250 ml 0 ml IV Total 250 ml 0 ml # Voids 5 # Bowel Movements 0 Result Diagram: 12/16/16 1523 12/19/16 0615 Imaging Last Impressions Brain MRI 12/15/16 0600 Signed Impressions: Service Date/Time: Thursday, December 15, 2016 15:22 - CONCLUSION: Acute hemorrhage again identified in the posterior right parietal and occipital lobe with small amount of subarachnoid hemorrhage. There is minimal fine enhancement surrounding this region. Nirav Cortez MD Spectroscopy MRI 12/15/16 0000 Signed Impressions: Service Date/Time: Thursday, December 15, 2016 15:22 - CONCLUSION: 1. Findings of necrosis without underlying neoplasm Yash Khan MD Head CT 12/14/16 0000 Signed Impressions: Service Date/Time: Wednesday, December 14, 2016 22:13 - CONCLUSION: 1. Acute 4 cm x 1.7 cm hemorrhage in the right occipital lobe with some surrounding edema and localized mass effect and trace extra-axial hemorrhage as well. Kenneth Driver MD Objective Remarks GENERAL: This is a well-nourished, well-developed patient, in no apparent distress. CARDIOVASCULAR: Regular rate and rhythm without murmurs, gallops, or rubs. RESPIRATORY: Clear to auscultation. Breath sounds equal bilaterally. No wheezes , rales, or rhonchi. GASTROINTESTINAL: Abdomen soft, non-tender, nondistended. Normal active bowel sounds MUSCULOSKELETAL: Extremities without clubbing, cyanosis, or edema. NEURO: Alert & Oriented x4 to person, place, time, situation. Moves all ext x4 A/P Problem List: (1) Hemorrhagic stroke Status: Acute Plan: - Comanagement with neurosurgery, Dr. Patel - conservative mgmt - kepra - BP mgmt (2) HTN (hypertension) Status: Acute Plan: - continue to observe blood pressure - agitation may have been contributing to increased readings - cozaar to 50mg daily, metoprolol - Repeat SBP this afternoon 122 - prn catapress, prn vasotec - anticipate d/c in next 1-2 days (3) Diabetes Status: Chronic Plan: - metformin - SSI (4) COPD (chronic obstructive pulmonary disease) Status: Chronic (5) Hyperlipidemia Status: Acute Problem Qualifiers (1) HTN (hypertension): Qualified Code: I10 - Essential hypertension (2) Diabetes: Qualified Code: E11.8 - Type 2 diabetes mellitus with complication, without long-term current use of insulin Arley Velasco DO Dec 19, 2016 15:12
[2016-12-19] MEDS ORDERED: NIFEdipine 30 MG SUSTAINED RELEASE TAB PO SCH (15:30)
[2016-12-19] MEDS ORDERED: LOSARTAN 50 MG TAB PO SCH (21:00)
[2016-12-19] MEDS: ATORVASTATIN 80 MG TAB PO SCH (22:06)
[2016-12-20] VITALS (8 sets, daily range): BP systolic 82–144; BP diastolic 47–71; PULSE 57–74; RESP 16–20; TEMP 96.7–97.4; O2SAT 93–96
[2016-12-20] MEDS: INSULIN ASPART SUPPLEMENTAL SCALE SQ SCH ×4 (05:27→20:59)
[2016-12-20] MEDS: SODIUM CHLORIDE 0.9% FLUSH 5 ML FLUSH IVF SCH ×2 (10:07→21:00)
[2016-12-20] MEDS: cloNIDine HCL 0.1 MG TAB PO SCH ×2 (10:08→21:00)
[2016-12-20] MEDS: PANTOPRAZOLE SODIUM 40 MG VIAL IVP SCH (10:08)
[2016-12-20] MEDS: LOSARTAN 50 MG TAB PO SCH (10:08)
[2016-12-20] MEDS: DEXAMETHASONE 4 MG TAB PO SCH (10:09)
[2016-12-20] MEDS: levETIRAcetam 500 MG TAB PO SCH ×2 (10:09→21:00)
[2016-12-20] MEDS: DULoxetine HCl DR 60 MG CAP PO SCH (10:09)
[2016-12-20] MEDS: ASCORBIC ACID 500 MG TAB PO SCH (10:09)
[2016-12-20] MEDS: metFORMIN HCL 500 MG TAB PO SCH (10:09)
[2016-12-20] MEDS: NIACIN 500 MG EXTENDED RELEASE TAB PO SCH (10:10)
[2016-12-20] MEDS: METOPROLOL TARTRATE 50 MG TAB PO SCH ×2 (10:10→21:00)
--- NOTE | 2016-12-20 11:23 | HHI.NSPN ---
History Chief Complaint: left visual field deficit stable. ICH. Interval History 66 yr old with hx of Fabiola's and DM presented with a left visual field deficit and hemorrhage in the right occipital region. She has a stable left field deficit with loss of color vision. The right visual field is not full at this time. The CRP is mildly elevated but she has been on steroids in a moderate dose because of HTN and hyperglycemia. Dr Roth is following. 12/20/16: Pt awakens to voice. bitemporal headache. No nausea or vomiting. Left visual field deficit improving from admission. Pt does okay with walking short distance to bathroom but more difficulty walking in halls. Review of Systems General: Negative for: fever, chills, insomnia Respiratory: Negative for: shortness of breath, cough, sputum Cardiovascular: Negative for: chest pain Gastrointestinal: Negative for: nausea, vomitting, diarrhea, constipation Exam Results Vital Signs Date Time Temp Pulse Resp B/P Pulse Ox O2 Delivery O2 Flow Rate FiO2 12/20/16 08:00 97.1 74 17 120/61 94 12/19/16 12:58 Nasal Cannula 21 12/16/16 20:00 2.00 Intake and Output 12/19/16 12/19/16 12/20/16 08:00 16:00 00:00 Intake Total 0 ml 120 ml Balance 0 ml 120 ml Physical Examination Resp: CTA bilaterally Heart: NSR no murmurs Abd: Soft positive bs Skin: No cyanosis or erythema Muscle: Moves all 4 extremities well Neuro: Pt awakens to voice. Follows commands. Speech clear and appropriate. Pt has difficulty reading board secondary to left visual field deficit. Lab, Micro, Other Results 12/19/16 12/19/16 12/20/16 15:00 23:00 07:00 Intake Total 120 ml Balance 120 ml Intake Oral 120 ml # Voids 7 # Bowel Movements 0 Medical Decision Making Impression and Plan A: Right occipital hemorrhage. 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 P: BP control per the medicine service Neurosurgically stable for rehab placement. Miki Miramontes Dec 20, 2016 11:23
[2016-12-20] MEDS: LORazepam 2 MG/ML VIAL IV PUSH PRN (12:20)
--- NOTE | 2016-12-20 13:58 | HHI.DS ---
Discharge Summary Admission Date Dec 14, 2016 at 23:25 Discharge Date: Dec 20, 2016 Admitting Diagnosis Acute Intracranial Hemorrhage/Hemorrhagic Stroke. (1) Hemorrhagic stroke Diagnosis: Principal (2) HTN (hypertension) Diagnosis: Principal (3) Diabetes Diagnosis: Secondary (4) COPD (chronic obstructive pulmonary disease) Diagnosis: Secondary (5) Hyperlipidemia Diagnosis: Secondary Consultants Dr. Loredo, Neurology Brief History Patient is a pleasant 66-year-old female with history of hypertension, coronary artery disease, type 2 diabetes, and previous multiple TIAs. Patient presented to the hospital with complaint of severe headache and left visual field disturbance. Patient was admitted to the neurosurgical service, Dr. Patel. Patient was found to have had a spontaneous, right occipital bleed with left superior quadrant visual field loss. Patient is being managed conservatively. Medical team has been consult to assist with chronic medical issues. CBC/BMP: 12/16/16 1523 12/19/16 0615 Significant Findings Laboratory Tests Test 12/18/16 12/19/16 06:23 06:15 Blood Urea Nitrogen 19 MG/DL (7-18) 19 MG/DL (7-18) Estimat Glomerular Filtration 64 ML/MIN (>89) 64 ML/MIN (>89) Rate Imaging Last Impressions Head/Brain Mag Res Venography 12/19/16 0000 Signed Impressions: Service Date/Time: Monday, December 19, 2016 11:14 - CONCLUSION: Negative for deep venous thrombosis as a source of the cortical hemorrhage. Hernandez Kwon MD FACR Brain MRI 12/15/16 0600 Signed Impressions: Service Date/Time: Thursday, December 15, 2016 15:22 - CONCLUSION: Acute hemorrhage again identified in the posterior right parietal and occipital lobe with small amount of subarachnoid hemorrhage. There is minimal fine enhancement surrounding this region. Nirav Cortez MD Spectroscopy MRI 12/15/16 0000 Signed Impressions: Service Date/Time: Thursday, December 15, 2016 15:22 - CONCLUSION: 1. Findings of necrosis without underlying neoplasm Yash Khan MD Head CT 12/14/16 0000 Signed Impressions: Service Date/Time: Wednesday, December 14, 2016 22:13 - CONCLUSION: 1. Acute 4 cm x 1.7 cm hemorrhage in the right occipital lobe with some surrounding edema and localized mass effect and trace extra-axial hemorrhage as well. Kenneth Driver MD PE at Discharge GENERAL: This is a well-nourished, well-developed patient, in no apparent distress. CARDIOVASCULAR: Regular rate and rhythm without murmurs, gallops, or rubs. RESPIRATORY: Clear to auscultation. Breath sounds equal bilaterally. No wheezes , rales, or rhonchi. GASTROINTESTINAL: Abdomen soft, non-tender, nondistended. Normal active bowel sounds MUSCULOSKELETAL: Extremities without clubbing, cyanosis, or edema. NEURO: Alert & Oriented x4 to person, place, time, situation. Moves all ext x4 Hospital Course (1) Hemorrhagic stroke Status: Acute Plan: - Comanagement with neurosurgery, Dr. Patel - conservative mgmt - kepra - BP mgmt (2) HTN (hypertension) Status: Acute Plan: - continue to observe blood pressure - agitation may have been contributing to increased readings - metoprolol - day prior to discharge pt was hypotensive, but asymptomatic - Pt given IVFs with improvement of her BP readings - will stop cozaar - also decreased metoprolol to 25mg BID with parameters - discharge to SNF - see discharge orders (3) Diabetes Status: Chronic Plan: - metformin - SSI (4) COPD (chronic obstructive pulmonary disease) Status: Chronic (5) Hyperlipidemia Status: Acute Pt Condition on Discharge: Stable Discharge Disposition: Discharge to SNF Discharge Instructions DIET: Follow Instructions for: Diabetic Diet Activities you can perform: See Additionl Instruction Activities to Avoid: Lifting/Bending, Strenuous Activity, Driving Follow up Referrals: Neurosurgery - 1 Week Ophthalmology - 1 Month @ [facility] PCP Follow-up - 1 Week New Medications: Clonidine (Clonidine) 0.1 Mg Tab 0.1 MG PO BID PRN for SBP greater than 140 #60 Ref 2 TAB Dexamethasone (Dexamethasone) 2 Mg Tab 2 MG PO DAILY for 1 week then 1 mg daily for #14 Ref 1 TAB Hydrocodone-Acetaminophen (Hydrocodone-Acetaminophen) 5-325 mg Tab 1 TAB PO Q6H PRN pain 5-10 #45 Ref 1 TAB Levetiracetam (Keppra) 500 Mg Tab 500 MG PO Q12HR seizure prophylaxis #60 Ref 5 TAB Continued Medications: Albuterol Neb (Albuterol Neb) 2.5 Mg/3 Ml Neb 2.5 MG NEB BID Shortness Of Breath #1 Ref 0 NEBULE Ascorbic Acid (Vitamin C) 1,000 Mg Tab 1000 MG PO DAILY Nutritional Supplement Ref 0 TAB Atorvastatin (Lipitor) 80 Mg Tab 80 MG PO HS Cholesterol Management #30 Ref 0 TAB Calcium-Vitamins D & K (Calcium + D & K) 500-1,000-40 Mg-Unit-Mcg Chew 900 TAB CHEW Nutritional Supplement Ref 0 TAB Clonidine (Clonidine) 0.1 Mg Tab 0.1 MG PO BID Blood Pressure Management #[address] (Cymbalta DR) 60 Mg Capdr 60 MG PO DAILY #30 Ref 0 CAP Ergocalciferol (Vitamin D) 50,000 Unit Cap 900 UNITS PO Q7D Nutritional Supplement #30 Ref 0 CAP Fluticasone Nasal [place] (Flonase Allergy Relief Children Nasal [place]) 50 Mcg/ Act [place] 1 SPRAY EACH NARE DAILY 50 mcg/spray PRN ALLERGIES #1 Ref 0 BOTTLE Losartan (Losartan) 50 Mg Tab 50 MG PO DAILY Blood Pressure Management #30 Ref 0 TAB Metformin (Metformin) 500 Mg Tab 500 MG PO DAILY With a meal Blood Sugar Management #30 Ref 0 TAB Metoprolol Tartrate (Metoprolol Tartrate) 50 Mg Tab 50 MG PO BID #60 Ref 0 TAB Niacin (Niacin) 500 Mg Tab 1000 MG PO DAILY Cholesterol Management #30 Ref 0 TAB Omeprazole (Omeprazole) 20 Mg Tab 20 MG PO BID #30 Ref 0 TAB Trazodone (Trazodone) 100 Mg Tab 100 MG PO HS Control Depression #30 Ref 0 TAB Discontinued Medications: Aspirin (Aspirin) 325 Mg Tab 325 MG PO ONCE #1 Ref 0 TAB Montelukast (Montelukast) 10 Mg Tab 10 MG PO HS #30 Ref 0 TAB Arley Velasco DO Dec 20, 2016 13:58
--- NOTE | 2016-12-20 14:15 | HHI.PR ---
Subjective Remarks Pt denies dizziness. Pt denies chest pain or palpitations. Objective Vitals Vital Signs Date Time Temp Pulse Resp B/P Pulse Ox O2 Delivery O2 Flow Rate FiO2 12/20/16 12:00 96.7 64 16 82/50 95 12/20/16 10:10 96 21 12/20/16 08:00 97.1 74 17 120/61 94 12/20/16 07:39 57 12/20/16 01:06 93 12/20/16 00:00 97.4 60 18 144/71 93 12/19/16 20:00 97.6 16 149/70 92 12/19/16 15:57 95.7 64 18 122/57 92 12/19/16 15:01 20 12/19/16 12/19/16 12/20/16 15:00 23:00 07:00 Intake Total 120 ml Balance 120 ml Intake Oral 120 ml # Voids 7 # Bowel Movements 0 Result Diagram: 12/16/16 1523 12/19/16 0615 Imaging Last Impressions Head/Brain Mag Res Venography 12/19/16 0000 Signed Impressions: Service Date/Time: Monday, December 19, 2016 11:14 - CONCLUSION: Negative for deep venous thrombosis as a source of the cortical hemorrhage. Hernandez Kwon MD FACR Brain MRI 12/15/16 0600 Signed Impressions: Service Date/Time: Thursday, December 15, 2016 15:22 - CONCLUSION: Acute hemorrhage again identified in the posterior right parietal and occipital lobe with small amount of subarachnoid hemorrhage. There is minimal fine enhancement surrounding this region. Nirav Cortez MD Spectroscopy MRI 12/15/16 0000 Signed Impressions: Service Date/Time: Thursday, December 15, 2016 15:22 - CONCLUSION: 1. Findings of necrosis without underlying neoplasm Yash Khan MD Head CT 12/14/16 0000 Signed Impressions: Service Date/Time: Wednesday, December 14, 2016 22:13 - CONCLUSION: 1. Acute 4 cm x 1.7 cm hemorrhage in the right occipital lobe with some surrounding edema and localized mass effect and trace extra-axial hemorrhage as well. Kenneth Driver MD Objective Remarks GENERAL: This is a well-nourished, well-developed patient, in no apparent distress. CARDIOVASCULAR: Regular rate and rhythm without murmurs, gallops, or rubs. RESPIRATORY: Clear to auscultation. Breath sounds equal bilaterally. No wheezes , rales, or rhonchi. GASTROINTESTINAL: Abdomen soft, non-tender, nondistended. Normal active bowel sounds MUSCULOSKELETAL: Extremities without clubbing, cyanosis, or edema. NEURO: Alert & Oriented x4 to person, place, time, situation. Moves all ext x4 A/P Problem List: (1) Hemorrhagic stroke Status: Acute Plan: - Comanagement with neurosurgery, Dr. Patel - conservative mgmt - kepra - pt currently trending hypotensive - will give IVFs, and observe response overnight - parameters written for pt's BP medications. (2) HTN (hypertension) Status: Acute Plan: - cozaar to 50mg daily, metoprolol - prn catapress, prn vasotec - see above (3) Diabetes Status: Chronic Plan: - metformin - SSI (4) COPD (chronic obstructive pulmonary disease) Status: Chronic (5) Hyperlipidemia Status: Acute Problem Qualifiers (1) HTN (hypertension): Qualified Code: I10 - Essential hypertension (2) Diabetes: Qualified Code: E11.8 - Type 2 diabetes mellitus with complication, without long-term current use of insulin Arley Velasco DO Dec 20, 2016 14:15
[2016-12-20] MEDS: NS + KCL 20 MEQ INJ 1,000 ML IV SCH (15:25)
[2016-12-20] MEDS: ACETAMINOPHEN/HYDROcodone 325 MG/5 MG TAB PO PRN (19:00)
[2016-12-20] MEDS: ATORVASTATIN 80 MG TAB PO SCH (21:00)
[2016-12-20] MEDS: ACETAMINOPHEN 325 MG TAB PO PRN (21:05)
[2016-12-21] VITALS: BP 139/70; PULSE 56; RESP 20; TEMP 96.6; O2SAT 95
[2016-12-21] MEDS: NS + KCL 20 MEQ INJ 1,000 ML IV SCH (02:46)
[2016-12-21 04:00] VITALS: BP 146/76; PULSE 56; RESP 20; TEMP 98.4; O2SAT 95
[2016-12-21] MEDS: INSULIN ASPART SUPPLEMENTAL SCALE SQ SCH ×2 (05:43→11:00)
[2016-12-21 07:19] LABS: BASOPHIL % 0.1 % (0.0-2.0); EOSINOPHIL # 0.1 TH/MM3 (0-0.4); EOSINOPHIL % 1.1 % (0.0-4.0); HEMATOCRIT 38.5 % (35.0-46.0); HEMO FLAGS DIFF FINAL; LYMPH % 23.6 % (9.0-44.0); LYMPHOCYTE # 2.2 TH/MM3 (1.0-4.8); MEAN CORPUSCULAR HEMOGLOBIN 30.4 PG (27.0-34.0); MEAN CORPUSCULAR HGB CONC 33.8 % (32.0-36.0); MONO % 10.4 % (0.0-8.0); NEUT % 64.8 % (16.0-70.0); PLATELET COUNT 180 TH/MM3 (150-450); RED BLOOD COUNT 4.28 MIL/MM3 (4.00-5.30); RED CELL DISTRIBUTION WIDTH 13.6 % (11.6-17.2); WHITE BLOOD COUNT 9.3 TH/MM3 (4.0-11.0)
[2016-12-21 07:59] LABS: BICARBONATE 24.4 MEQ/L (21.0-32.0); MAGNESIUM 2.3 MG/DL (1.5-2.5); POTASSIUM 4.7 MEQ/L (3.5-5.1)
[2016-12-21 08:12] VITALS: BP 129/60; PULSE 57; RESP 18; TEMP 96.8; O2SAT 97
--- NOTE | 2016-12-21 08:18 | RADRPT ---
EXAM DATE/TIME: 12/21/2016 07:48 [facility] COMPARISON: CHEST PA & LAT, March 05, 2015, 8:28. INDICATIONS : Evalaute for pneumonia MEDICAL HISTORY : Carcinoma, breast. Diabetes mellitus type II. asthma, bronchitits SURGICAL HISTORY : Mastectomy, left. ENCOUNTER: Initial ACUITY: 1 week PAIN SCORE: 0/10 LOCATION: Bilateral chest FINDINGS: PA and lateral views of the chest. Linear subsegmental atelectasis or scarring at the left lung base. Lungs otherwise clear. Cardiomediastinal silhouette within normal limits. No evidence of pleural eff usion or pneumothorax. Surgical clips in the right upper quadrant of the abdomen. CONCLUSION: Subsegmental atelectasis or scarring at the left lung base. No other acute cardiopulmonary disease id entified. Jordy Randle MD on December 21, 2016 at 8:15 Board Certified Radiologist. This report was verified electronically.
[2016-12-21] MEDS: ASCORBIC ACID 500 MG TAB PO SCH (08:34)
[2016-12-21] MEDS: PANTOPRAZOLE SODIUM 40 MG VIAL IVP SCH (08:34)
[2016-12-21] MEDS: NIACIN 500 MG EXTENDED RELEASE TAB PO SCH (08:34)
[2016-12-21] MEDS: DULoxetine HCl DR 60 MG CAP PO SCH (08:35)
[2016-12-21] MEDS: metFORMIN HCL 500 MG TAB PO SCH (08:35)
[2016-12-21] MEDS: DEXAMETHASONE 4 MG TAB PO SCH (08:35)
[2016-12-21] MEDS: levETIRAcetam 500 MG TAB PO SCH (08:35)
[2016-12-21] MEDS: cloNIDine HCL 0.1 MG TAB PO SCH (08:36)
[2016-12-21] MEDS: SODIUM CHLORIDE 0.9% FLUSH 5 ML FLUSH IVF SCH (08:36)
[2016-12-21] MEDS: LOSARTAN 50 MG TAB PO SCH (08:36)
[2016-12-21] MEDS: METOPROLOL TARTRATE 50 MG TAB PO SCH (08:37)
[2016-12-21 10:45] VITALS: PULSE 102
--- NOTE | 2016-12-21 11:13 | HHI.NSPN ---
History Chief Complaint: left visual field deficit stable. ICH. Interval History 66 yr old with hx of Fabiola's and DM presented with a left visual field deficit and hemorrhage in the right occipital region. She has a stable left field deficit with loss of color vision. The right visual field is not full at this time. The CRP is mildly elevated but she has been on steroids in a moderate dose because of HTN and hyperglycemia. Dr Roth is following. 12/20/16: Pt awakens to voice. bitemporal headache. No nausea or vomiting. Left visual field deficit improving from admission. Pt does okay with walking short distance to bathroom but more difficulty walking in halls. 12/21/16: Pt awake and alert. Denies headache currently. No nausea or vomiting. Left visual field deficit stable from yesterday. Discharge held yesterday secondary to decrease in blood pressure in afternoon. Review of Systems General: Negative for: fever, chills, insomnia Respiratory: Negative for: shortness of breath, cough, sputum Cardiovascular: Negative for: chest pain Gastrointestinal: Negative for: nausea, vomitting, diarrhea, constipation Exam Results Vital Signs Date Time Temp Pulse Resp B/P Pulse Ox O2 Delivery O2 Flow Rate FiO2 12/21/16 10:45 102 12/21/16 08:12 96.8 18 129/60 97 12/20/16 18:33 21 12/19/16 12:58 Nasal Cannula Intake and Output 12/20/16 12/20/16 12/21/16 08:00 16:00 00:00 Intake Total 480 ml 240 ml Balance 480 ml 240 ml Physical Examination Resp: CTA bilaterally Heart: NSR no murmurs Abd: Soft positive bs Skin: No cyanosis or erythema Muscle: Moves all 4 extremities well Neuro: Pt awake and alert. Pupils 3mm bilaterally reactive bilaterally. Follows commands. Speech clear and appropriate. Pt has difficulty reading board secondary to her left visual field deficit. Lab, Micro, Other Results Last Impressions Chest X-Ray 12/21/16 0800 Signed Impressions: Service Date/Time: Wednesday, December 21, 2016 07:48 - CONCLUSION: Subsegmental atelectasis or scarring at the left lung base. No other acute cardiopulmonary disease identified. Jordy Randle MD Head/Brain Mag Res Venography 12/19/16 0000 Signed Impressions: Service Date/Time: Monday, December 19, 2016 11:14 - CONCLUSION: Negative for deep venous thrombosis as a source of the cortical hemorrhage. Hernandez Kwon MD FACR Brain MRI 12/15/16 0600 Signed Impressions: Service Date/Time: Thursday, December 15, 2016 15:22 - CONCLUSION: Acute hemorrhage again identified in the posterior right parietal and occipital lobe with small amount of subarachnoid hemorrhage. There is minimal fine enhancement surrounding this region. Nirav Cortez MD Spectroscopy MRI 12/15/16 0000 Signed Impressions: Service Date/Time: Thursday, December 15, 2016 15:22 - CONCLUSION: 1. Findings of necrosis without underlying neoplasm Yash Khan MD Head CT 12/14/16 0000 Signed Impressions: Service Date/Time: Wednesday, December 14, 2016 22:13 - CONCLUSION: 1. Acute 4 cm x 1.7 cm hemorrhage in the right occipital lobe with some surrounding edema and localized mass effect and trace extra-axial hemorrhage as well. Kenneth Driver MD Laboratory Tests Test 12/21/16 12/21/16 06:55 07:00 Sodium Level 141 MEQ/L Potassium Level 4.7 MEQ/L Chloride Level 107 MEQ/L Carbon Dioxide Level 24.4 MEQ/L Anion Gap 10 MEQ/L Blood Urea Nitrogen 20 MG/DL Creatinine 1.07 MG/DL Estimat Glomerular Filtration 51 ML/MIN Rate Random Glucose 124 MG/DL Calcium Level 8.6 MG/DL Magnesium Level 2.3 MG/DL White Blood Count 9.3 TH/MM3 Red Blood Count 4.28 MIL/MM3 Hemoglobin 13.0 GM/DL Hematocrit 38.5 % Mean Corpuscular Volume 90.0 FL Mean Corpuscular Hemoglobin 30.4 PG Mean Corpuscular Hemoglobin 33.8 % Concent Red Cell Distribution Width 13.6 % Platelet Count 180 TH/MM3 Mean Platelet Volume 9.3 FL Neutrophils (%) (Auto) 64.8 % Lymphocytes (%) (Auto) 23.6 % Monocytes (%) (Auto) 10.4 % Eosinophils (%) (Auto) 1.1 % Basophils (%) (Auto) 0.1 % Neutrophils # (Auto) 6.0 TH/MM3 Lymphocytes # (Auto) 2.2 TH/MM3 Monocytes # (Auto) 1.0 TH/MM3 Eosinophils # (Auto) 0.1 TH/MM3 Basophils # (Auto) 0.0 TH/MM3 CBC Comment DIFF FINAL Differential Comment 12/20/16 12/20/16 12/21/16 15:00 23:00 07:00 Intake Total 480 ml 240 ml 120 ml Balance 480 ml 240 ml 120 ml Intake Oral 480 ml 240 ml 120 ml # Voids 3 0 2 # Bowel Movements 2 0 0 Medical Decision Making Impression and Plan A: Right occipital hemorrhage. 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 P: BP control per the medicine service Neurosurgically stable for rehab placement. Rehab placement when medically stable. Discharge held yesterday secondary to decreased bp. Miki Miramontes Dec 21, 2016 11:13
[2016-12-21 12:11] VITALS: BP 103/51; PULSE 106; RESP 18; TEMP 98.6; O2SAT 93
--- NOTE | 2016-12-21 13:55 | HHI.FF ---
Face to Face Verification Diagnosis: (1) Hemorrhagic stroke (2) COPD (chronic obstructive pulmonary disease) (3) Diabetes Physical Therapy Order: Evaluate and Treat, Improve ambulation, Strength and gait training Home Health Nursing Order: Medical education Signs/symptoms of disease process Diabetic education Medication education-adverse effect Nursing assessment with vital signs I have seen patient Alexandria Lee on 12/21/16. My clinical findings support the need for the requested home health care services because: Ltd mobility - disease progression Deconditioned w/ increased weakness Med compliance is questionable Limited ability to care for self Need for psychosocial assistance I certify that my clinical findings support that this patient is homebound because: Impaired cognitive ability/safety Unsteady gait/balance Unsafe to leave home unassisted Need for psychosocial assistance Unable to use public transportation Arley Velasco DO Dec 21, 2016 13:55
[2016-12-21] MEDS ORDERED: NORC5TAB PO (14:01)
[2016-12-21] MEDS ORDERED: METO25TA3 PO (14:01)
[2016-12-21] MEDS ORDERED: LORA-392 PO (14:01)
[2016-12-22 17:52] LABS: THROMBIN TIME FOR LA ND sec (13-19)
[2016-12-23 15:55] LABS: PHOSPHATIDYLSERINE AB IGA LESS THAN 20.0 U/mL (()); PHOSPHATIDYLSERINE AB IGM LESS THAN 25.0 U/mL (())
[2016-12-29] MEDS ORDERED: LORA-392 PO (14:59)
== END 2016-12-21 15:35 | disposition home health service (06) | DRG 64 ==
LOC: NEPC 21:55 → NEDA 23:25 → N03A 12-15 00:54 → N05A 12-18 02:21
PROVIDERS: ADMIT Neurological Surgery; ATTEND Neurological Surgery
PROC: 8E023DZ Near Infrared Spectroscopy of Circulatory System, Percutaneous Approach (ICD-10-PCS; principal; 2016-12-15)
DX: I61.1 Nontraumatic intracerebral hemorrhage in hemisphere, cortical (principal); G93.6 Cerebral edema; G04.90 Encephalitis and encephalomyelitis, unspecified; I95.9 Hypotension, unspecified; J44.9 Chronic obstructive pulmonary disease, unspecified; E11.65 Type 2 diabetes mellitus with hyperglycemia; I16.1 Hypertensive emergency; R40.2410 Glasgow coma scale score 13-15, unspecified time; I10 Essential (primary) hypertension; E78.5 Hyperlipidemia, unspecified; H53.40 Unspecified visual field defects; I25.10 Atherosclerotic heart disease of native coronary artery without angina pectoris; Z86.73 Personal history of transient ischemic attack (TIA), and cerebral infarction without residual deficits; I60.9 Nontraumatic subarachnoid hemorrhage, unspecified; F32.9 Major depressive disorder, single episode, unspecified; Z85.3 Personal history of malignant neoplasm of breast; M17.11 Unilateral primary osteoarthritis, right knee; E06.3 Autoimmune thyroiditis; F40.240 Claustrophobia; J45.909 Unspecified asthma, uncomplicated; K21.9 Gastro-esophageal reflux disease without esophagitis; H91.90 Unspecified hearing loss, unspecified ear; Z96.651 Presence of right artificial knee joint
CPT/HCPCS: 70450; 70546; 70553; 71020; 76390; 80048; 80076; 80307; 81001; 81240; 81241; 81291; 82435; 82533; 82550; 82565; 82947; 82948; 83090; 83735; 84100; 84132; 84295; 84484; 84520; 84702; 85007; 85025; 85027; 85240; 85300; 85303; 85306; 85307; 85384; 85610; 85613; 85652; 85730; 86140; 86146; 86147; 86148; 86850; 86900; 86901; 87040; 87641; 93005; 94640; 94664; 96365; A9579; C9113; J0131; J0360; J1815; J1953; J2060; J2270; J2405; J3480; J7030; J7050; J7613; J8540

== ENCOUNTER 2017-01-15 10:49 | Emergency (ER) | payer MEDICARE ==
[~2017-01-15] VITALS: Ht 157.5 cm; Wt 80.0 kg
[~2017-01-15 10:49] MED LIST changes: +ALBU0.08 NEB; -ALBU2.5I INH; -ASPI325T24 PO; -CALC600T10 PO; +CALCCHW25 CHEW; -CHOL1CAP6 PO; -CLON.1 PO; +CLON0.1T PO; +DEXA2TAB PO; +ERGO1CAP10 PO; -FLON0.053; +FLUT1SPR9 EACH NARE; +LEVE500 PO; +LIPI80TA PO; -LIPI80TA16 PO; +LORA-392 PO; -LOSA50TA PO; +METF500T PO; +METO25TA3 PO; -METO50CR PO; -MONT10TA2 PO; +MONT10TA4 PO; -NIAC500T18 PO; +NIAC500T5 PO; +NORC5TAB PO; +OMEP20TA PO; -OMEP20TA39 PO; -PRED10 PO; -TRAZ100 PO; +TRAZ100T4 PO; +VITA10007 PO
[2017-01-15 10:50] VITALS: BP 136/67; PULSE 92; RESP 20; TEMP 98.1; O2SAT 94
[2017-01-15 10:56] VITALS: BP 182/79; PULSE 86; RESP 18; O2SAT 94
[2017-01-15 11:57] VITALS: O2SAT 94
[2017-01-15 12:18] LABS: AUTOMATED NEUTROPHIL # 5.7 TH/MM3 (1.8-7.7); BASOPHIL % 0.3 % (0.0-2.0); EOSINOPHIL # 0.1 TH/MM3 (0-0.4); EOSINOPHIL % 0.6 % (0.0-4.0); HEMO FLAGS DIFF FINAL; LYMPH % 14.9 % (9.0-44.0); LYMPHOCYTE # 1.2 TH/MM3 (1.0-4.8); MEAN CELL VOLUME 90.4 FL (80.0-100.0); MONO % 13.4 % (0.0-8.0); NEUT % 70.8 % (16.0-70.0); PLATELET COUNT 198 TH/MM3 (150-450); RED BLOOD COUNT 4.43 MIL/MM3 (4.00-5.30); RED CELL DISTRIBUTION WIDTH 14.7 % (11.6-17.2); WHITE BLOOD COUNT 8.1 TH/MM3 (4.0-11.0)
[2017-01-15 12:29] VITALS: BP 134/69; PULSE 88; RESP 18; O2SAT 98
[2017-01-15 12:31] LABS: APTT (PATIENT) 24.3 SEC (24.3-30.1)
[2017-01-15 12:33] LABS: ANION GAP 8 MEQ/L (5-15); AST (GOT) 23 U/L (15-37); BLOOD UREA NITROGEN 15 MG/DL (7-18); CHLORIDE 103 MEQ/L (98-107); GLOMERULAR FILTRATION RATE 58 ML/MIN (>89); POTASSIUM 3.7 MEQ/L (3.5-5.1); SODIUM (NA) 139 MEQ/L (136-145)
[2017-01-15 12:38] LABS: ALKALINE PHOSPHATASE 66 U/L (45-117); ALT (GPT) 25 U/L (10-53); CREATINE KINASE 103 U/L (26-192); TOTAL BILIRUBIN ADULT 0.6 MG/DL (0.2-1.0)
--- NOTE | 2017-01-15 12:57 | RADRPT ---
EXAM DATE/TIME: 01/15/2017 12:22 [facility] COMPARISON: CHEST SINGLE AP, August 07, 2016, 16:13. INDICATIONS : Chest pain MEDICAL HISTORY : Carcinoma, breast. Hypertension Diabetes mellitus type II. asthma, bronchitits SURGICAL HISTORY : Mastectomy, left. ENCOUNTER: Initial ACUITY: 1 day PAIN SCORE: 6/10 LOCATION: chest FINDINGS: The heart size is normal. There is minimal increased density at the lateral left base. The right lung is clear. No effusion is seen. CONCLUSION: Suspected minimal atelectasis or consolidation at the left lateral base. Cristian Javed MD on January 15, 2017 at 12:52 Board Certified Radiologist. This report was verified electronically.
[2017-01-15] MEDS ORDERED: IOHEXOL 350 MG/ML 10 ML VIAL (for RAD DIAG) IV ONE (13:27)
--- NOTE | 2017-01-15 13:55 | RADRPT ---
EXAM DATE/TIME: 01/15/2017 13:17 [facility] COMPARISON: CT PULMONARY ANGIOGRAM, October 20, 2015, 12:59. INDICATIONS: Dyspnea with back pain IV CONTRAST: 75 cc Omnipaque 350 (iohexol) IV RADIATION DOSE: 12.94 CTDIvol (mGy) MEDICAL HISTORY: Hypertension. Hypertension. Hernia, hiatal. SURGICAL HISTORY: Appendectomy. Cholecystectomy. ENCOUNTER: Initial ACUITY: 1 day PAIN SCALE: 3/10 LOCATION: Chest TECHNIQUE: Volumetric scanning of the chest was performed using a pulmonary embolism protocol MIP images were re constructed. Using automated exposure control and adjustment of the mA and/or kV according to patien t size, radiation dose was kept as low as reasonably achievable to obtain optimal diagnostic quality images. FINDINGS: Moderate bibasilar parenchymal changes are evident. Minimal mediastinal adenopathy is present. There is no evidence for central pulmonary emboli. There is no pericardial effusion. Portion of liver and spleen identified are free of focal defects. CONCLUSION: 1. Negative for central pulmonary emboli. 2. Moderate bibasilar consolidative changes worse on the left than the right that have progressed in the interval. Hernandez Kwon MD FACR on January 15, 2017 at 13:46 Board Certified Radiologist. This report was verified electronically.
--- NOTE | 2017-01-15 14:15 | PD ---
HPI Chief Complaint: Respiratory Distress Time Seen by Provider: 11:43 Travel History International Travel<30 days: No Contact w/Intl Traveler<30days: No Traveled to known affect area: No History of Present Illness HPI 66-year-old female complains of shortness of breath, chest pressure and upper back pain. Patient states the symptoms started last night. Patient states the pain is localized to left chest. Patient denies any pain radiation. Patient states that she has intermittent palpitation for the past 2 weeks. Patient states the pain is sharp stabbing pain localized to left chest. Patient states the pain is worse with deep breathing. Patient denies any coughing congestion fever chills. Patient has history of PE in the past. Patient was on Coumadin for short period time in the past. Patient is not on Coumadin now. Patient has history of hypertension, diabetes, dyslipidemia. Patient has history COPD. Patient is a nonsmoker. Patient has history of breast cancer status post radiation treatment in 2013. On a scale of 1-10 the pain is a 7. PFSH Past Medical History Hx Anticoagulant Therapy: Yes (325MG ASA) Asthma: Yes Blood Disorders: No Anxiety: Yes Depression: Yes Heart Rhythm Problems: Yes Cancer: Yes (LEFT BREAST) Cardiac Catheterization: Yes Cardiovascular Problems: Yes (HTN) High Cholesterol: Yes Chemotherapy: No Chest Pain: No Congestive Heart Failure: No COPD: Yes Cerebrovascular Accident: Yes (HEMORRHAGIC STROKE) Coronary Artery Disease: Yes Diabetes: Yes Patient Takes Glucophage: Yes (01/15/17 0900) Diminished Hearing: Yes (geraldine hearing aids) Endocrine: Yes Gastrointestinal Disorders: Yes (ACID REFLUX) GERD: Yes Glaucoma: No Genitourinary: No Headaches: Yes Hepatitis: No Hiatal Hernia: Yes Hypertension: Yes Immune Disorder: No Insomnia: Yes Kidney Stones: No Musculoskeletal: Yes (ARTHRITIS R KNEE, LEFT KNEE) Neurologic: Yes (TIA X 4 2005 2006 2007 2009) Psychiatric: Yes (CLAUSTROPHOBIC) Reproductive: No Respiratory: Yes (ASTHMA, COPD) Immunizations Current: Yes Myocardial Infarction: No Radiation Therapy: Yes (LAST DOSE 11/24/14) Renal Failure: Yes Seizures: No Sleep Apnea: No Thyroid Disease: Yes (rosie's) Ulcer: Yes Tetanus Vaccination: < 5 Years ?: Not Menopausal: Yes Tubal Ligation: Yes Past Surgical History Abdominal Surgery: Yes (APPENDECTOMY, CHOLECYSTECTOMY) AICD: No Appendectomy: Yes Arteriovenous Shunt: No Body Medical Devices: TITANIUM PLACED DURING HEMORRHOIDECTOMY Cardiac Surgery: No Section: Yes Cholecystectomy: Yes Ear Surgery: No Endocrine Surgery: No Eye Surgery: No Genitourinary Surgery: No Gynecologic Surgery: Yes Insulin Pump: No Joint Replacement: Yes (RT KNEE) Neurologic Surgery: No Oral Surgery: Yes (PERMANENT BRIDGE) Pacemaker: No Thoracic Surgery: No Other Surgery: Yes (LT LUMPECTOMY X 3, SKIN CA, HERNIA) Social History Alcohol Use: No Tobacco Use: No Substance Use: No Allergies-Medications (Allergen,Severity, Reaction): Coded Allergies: Bactrim (Verified Allergy, Severe, RASH/ NAUSEA, 12/29/16) Biaxin (Verified Allergy, Severe, RASH, 12/29/16) Penicillin (Verified Allergy, Severe, RASH, 12/29/16) Aggrenox (Unverified Allergy, Unknown, 12/29/16) Codeine (Unverified Adverse Reaction, Severe, HALLUCINATIONS, 12/29/16) Reported Meds & Prescriptions Reported Meds & Active Scripts Active Ativan (Lorazepam) 0.5 Mg Tab 0.5 Mg PO Q6H PRN [place] (Hydrocodone-Acetaminophen) 5-325 mg Tab 1 Tab PO Q6H PRN Metoprolol Tartrate 25 Mg Tab 25 Mg PO BID HOLD FOR SBP BELOW 110 Dexamethasone 2 Mg Tab 2 Mg PO DAILY Clonidine (Clonidine HCl) 0.1 Mg Tab 0.1 Mg PO BID PRN Keppra (Levetiracetam) 500 Mg Tab 500 Mg PO Q12HR Reported Flonase Allergy Relief Children Nasal [place] (Fluticasone Nasal [place]) 50 Mcg/ Act [place] 1 [place] EACH NARE DAILY PRN 50 mcg/spray Montelukast (Montelukast Sodium) 10 Mg Tab 10 Mg PO HS Vitamin C (Ascorbic Acid) 1,000 Mg Tab 1,000 Mg PO DAILY Niacin 500 Mg Tab 1,000 Mg PO DAILY Omeprazole 20 Mg Tab 20 Mg PO BID Trazodone (Trazodone HCl) 100 Mg Tab 100 Mg PO HS Cymbalta DR (Duloxetine HCl) 60 Mg Capdr 60 Mg PO DAILY Vitamin D (Ergocalciferol) 50,000 Unit Cap 900 Units PO Q7D Calcium + D & K (Calcium-Vitamins D & K) 500-1,000-40 Mg-Unit-Mcg Chew 900 Tab CHEW Lipitor (Atorvastatin Calcium) 80 Mg Tab 80 Mg PO HS Metformin (Metformin HCl) 500 Mg Tab 500 Mg PO DAILY With a meal Albuterol Neb (Albuterol Sulfate) 2.5 Mg/3 Ml Neb 2.5 Mg NEB BID Review of Systems General / Constitutional: No: Fever Eyes: No: Visual changes HENT: No: Headaches Cardiovascular: Positive: Chest Pain or Discomfort Respiratory: Positive: Shortness of Breath Gastrointestinal: No: Abdominal Pain Genitourinary: No: Dysuria Musculoskeletal: No: Pain Skin: No Rash Neurologic: No: Weakness Psychiatric: No: Depression Endocrine: No: Polydipsia Hematologic/Lymphatic: No: Easy Bruising Physical Exam Narrative GENERAL: Well-nourished, well-developed patient. SKIN: Warm and dry. HEAD: Normocephalic. EYES: No scleral icterus. No injection or drainage. NECK: Supple, trachea midline. No JVD or lymphadenopathy. CARDIOVASCULAR: Regular rate and rhythm without murmurs, gallops, or rubs. RESPIRATORY: Breath sounds equal bilaterally. No accessory muscle use. GASTROINTESTINAL: Abdomen soft, non-tender, nondistended. MUSCULOSKELETAL: No cyanosis, or edema. BACK: Nontender without obvious deformity. No CVA tenderness. Neurologic exam normal. Data Data Last Documented VS Vital Signs Date Time Temp Pulse Resp B/P Pulse Ox O2 Delivery O2 Flow Rate FiO2 01/15/17 12:29 88 18 134/69 98 Room Air 01/15/17 11:01 2 01/15/17 10:50 98.1 Orders Electrocardiogram (01/15/17 ) Complete Blood Count With Diff (01/15/17 11:53) Comprehensive Metabolic Panel (01/15/17 11:53) Creatine Kinase (Cpk) (01/15/17 11:53) Troponin I (01/15/17 11:53) B-Type Natriuretic Peptide (01/15/17 11:53) Prothrombin Time / Inr (Pt) (01/15/17 11:53) Act Partial Throm Time (Ptt) (01/15/17 11:53) D-Dimer (01/15/17 11:53) Chest, Single Ap (01/15/17 11:53) Iv Access Insert/Monitor (01/15/17 11:53) Ecg Monitoring (01/15/17 11:53) Oximetry (01/15/17 11:53) Ct Pulmonary Angiogram (01/15/17 11:54) Iohexol 350 Inj (Omnipaque 350 Inj) (01/15/17 13:27) Labs Laboratory Tests Test 01/15/17 11:59 White Blood Count 8.1 TH/MM3 Red Blood Count 4.43 MIL/MM3 Hemoglobin 12.8 GM/DL Hematocrit 40.0 % Mean Corpuscular Volume 90.4 FL Mean Corpuscular Hemoglobin 29.0 PG Mean Corpuscular Hemoglobin 32.0 % Concent Red Cell Distribution Width 14.7 % Platelet Count 198 TH/MM3 Mean Platelet Volume 9.2 FL Neutrophils (%) (Auto) 70.8 % Lymphocytes (%) (Auto) 14.9 % Monocytes (%) (Auto) 13.4 % Eosinophils (%) (Auto) 0.6 % Basophils (%) (Auto) 0.3 % Neutrophils # (Auto) 5.7 TH/MM3 Lymphocytes # (Auto) 1.2 TH/MM3 Monocytes # (Auto) 1.1 TH/MM3 Eosinophils # (Auto) 0.1 TH/MM3 Basophils # (Auto) 0.0 TH/MM3 CBC Comment DIFF FINAL Differential Comment Prothrombin Time 11.0 SEC Prothromb Time International 1.0 RATIO Ratio Activated Partial 24.3 SEC Thromboplast Time D-Dimer Quantitative (PE/DVT) 1.12 MG/L FEU Sodium Level 139 MEQ/L Potassium Level 3.7 MEQ/L Chloride Level 103 MEQ/L Carbon Dioxide Level 28.0 MEQ/L Anion Gap 8 MEQ/L Blood Urea Nitrogen 15 MG/DL Creatinine 0.96 MG/DL Estimat Glomerular Filtration 58 ML/MIN Rate Random Glucose 129 MG/DL Calcium Level 8.8 MG/DL Total Bilirubin 0.6 MG/DL Aspartate Amino Transf 23 U/L (AST/SGOT) Alanine Aminotransferase 25 U/L (ALT/SGPT) Alkaline Phosphatase 66 U/L Total Creatine Kinase 103 U/L Troponin I LESS THAN 0.02 NG/ML B-Type Natriuretic Peptide 26 PG/ML Total Protein 6.0 GM/DL Albumin 3.0 GM/DL MDM Medical Decision Making Medical Screen Exam Complete: Yes Emergency Medical Condition: Yes Interpretation(s) Last Impressions Chest X-Ray 01/15/17 1153 Signed Impressions: Service Date/Time: December 12:22 - CONCLUSION: Suspected minimal atelectasis or consolidation at the left lateral base. Cristian Javed MD [address] pulmonary angiogram shows negative for PE. Moderate bibasilar consolidation changes worse in the left than the right and had progressed since past x-ray. CBC within normal limit. CMP within normal limit. Cardiac enzymes are normal. D-dimer 1.12. Differential Diagnosis Differential diagnosis including musculoskeletal, pleurisy, angina, ND, PE, pneumothorax. Narrative Course 66-year-old female with left-sided chest pain. Diagnosis Primary Impression: Atypical chest pain Additional Impression: Pleurisy Patient Instructions: General Instructions Additional Instructions: Continue with medications as directed. Follow-up with personal physician. Return if increasing chest pain or shortness of breath. Med/Other Pt SpecificInfo: No Change to Meds Disposition: 01 DISCHARGE HOME Condition: Stable Emanuel Bauman MD Jan 15, 2017 14:15
--- NOTE | 2017-01-16 15:41 | EKG ---
Date Performed: 01/15/2017 Time Performed: 09:02:13 PTAGE: 66 years EKG: Sinus rhythm WITH OCCASIONAL VENTRICULAR PREMATURE COMPLEXES LEFT VENTRICULAR HYPERTROPHY AND ST-T CHANGE ABNORMA L ECG PREVIOUS TRACING 12/15/2016 @ 03.58.22 Compared to prior tracing no significant change DOCTOR: Melly Coleman Interpretating Date/Time 01/16/2017 15:40:03
== END 2017-01-15 16:20 | disposition home or self-care (01) ==
LOC: NEPA 10:49
DX: R07.89 Other chest pain (principal); R06.02 Shortness of breath; Z86.711 Personal history of pulmonary embolism; I10 Essential (primary) hypertension; J44.9 Chronic obstructive pulmonary disease, unspecified; E11.9 Type 2 diabetes mellitus without complications; E06.3 Autoimmune thyroiditis; R09.1 Pleurisy; K21.9 Gastro-esophageal reflux disease without esophagitis; Z86.73 Personal history of transient ischemic attack (TIA), and cerebral infarction without residual deficits
CPT/HCPCS: 71010; 71275; 80053; 82550; 83880; 84484; 85025; 85379; 85610; 85730; 93005; 99285; Q9967

== ENCOUNTER → 2017-10-15 | Day surgery (SDC) | payer MEDICARE ==
[~2017-10-15] VITALS: Ht 157.5 cm; Wt 82.0 kg
[~2017-10-15] MED LIST changes: +ALPR0.5T3 PO; +BUTA1CAP PO; -CALCCHW25 CHEW; +CHLORHEXIDINE GLUCONATE 2 % 1 PACK (2 CLOTHS) TOPICAL PRN; +CYCLOPENTOLATE HCL 1% OPHT SOLN 2 ML BTL ONE; -ERGO1CAP10 PO; +FLURBIPROFEN 0.03% OPHT SOLN 2.5 ML BTL ONE; +LACTATED RINGER'S 1000 ML IV PRN; +LIDOCAINE HCL 1% PF 30 ML VIAL ONE; +LIDOCAINE HCL 2% JELLY 5 ML SYRINGE ONE; +LIDOCAINE HCL 2% JELLY 5 ML SYRINGE TOPICAL ONE; +LOSA25TA PO; -METO25TA3 PO; +METO50TA PO; +METOPROLOL TARTRATE 25 MG TAB PO PRN; +MIDAZOLAM HCL 2 MG/2 ML VIAL ONE; -OMEP20TA PO; +OMEP20TA93 PO; +PHENYLEPHRINE HCL 10% OPTH SOLN 5 ML BTL ONE; +POVIDONE IODINE 5% (ANTISEPSIS KIT) 4 APPLICATIONS EACH NARE PRN; +PROPARACAINE HCL 0.5% OPHT SOLN 15 ML BTL LEFT EYE ONE; +PROPARACAINE HCL 0.5% OPHT SOLN 15 ML BTL ONE; +SODIUM CHLORID 0.9% 500 ML IV PRN; +TOBRAMYCIN/DEXAMETHASONE OPTH OINT 3.5 GM TUBE ONE; -TRAZ100T4 PO; +TROPICAMIDE 1% OPHT SOLN 15 ML BTL ONE; -VITA10007 PO
[2017-10-15] MEDS: FLURBIPROFEN 0.03% OPHT SOLN 2.5 ML BTL LEFT EYE SCH ×4 (06:38→06:53)
[2017-10-15] MEDS: PHENYLEPHRINE HCL 10% OPTH SOLN 5 ML BTL LEFT EYE SCH ×4 (06:38→06:53)
[2017-10-15] MEDS: TROPICAMIDE 1% OPHT SOLN 15 ML BTL LEFT EYE SCH ×4 (06:38→06:53)
[2017-10-15] MEDS: CYCLOPENTOLATE HCL 1% OPHT SOLN 2 ML BTL LEFT EYE SCH ×4 (06:38→06:53)
[2017-10-15 08:20] VITALS: TEMP 97.9
[2017-10-15 08:45] VITALS: BP 148/70; PULSE 59; RESP 14; O2SAT 97
--- NOTE | 2017-10-15 13:06 | MP ---
cc: JARON CENTENO M.D. [facility] #: [id number] DATE: October 15, 2017 PREOPERATIVE DIAGNOSIS: Visually significant cataract left eye. POSTOPERATIVE DIAGNOSIS: Visually significant cataract left eye. OPERATION: Phacoemulsification with posterior chamber lens implantation, left eye. SURGEON: Jaron Centeno MD ANESTHESIA: Topical with MAC. COMPLICATIONS: None. PROCEDURE: After informed consent was obtained, the patient was brought into the operative suite and placed on appropriate monitors by the Anesthesia Service. The patient had been given dilating drops and topical lidocaine gel in the holding area. The patient's operative eye was then prepped and draped in the usual sterile fashion. A wire lid speculum was placed. Further 2% lidocaine was then dropped on the cornea prior to beginning the procedure. A paracentesis incision was made in the peripheral cornea with a 1 mm rakan keratome. The anterior chamber was filled with viscoelastic. The anterior chamber was then entered through a stepped, clear corneal incision using a sharp 3 mm rakan keratome. A circular tear capsulorrhexis was then made with a bent needle cystitome. Following hydrodissection of the lens nucleus with balance saline, phacoemulsification of the nucleus was performed using a modified chopping technique. The remaining cortex was removed with irrigation/aspiration. The prior two procedures were both performed using the handpieces of the [employer] phaco unit. The capsular bag was then filled with viscoelastic. The intraocular lens was then injected into the capsular bag and positioned. The type of intraocular lens and its power can be found elsewhere in this chart. The remaining viscoelastic was then removed from the anterior chamber with the IA handpiece. The anterior chamber was reformed with balanced saline. The wound was then closed securely with stromal hydration. It was found to be watertight to an intraocular pressure of at least 30 mmHg by palpation. A small amount of balanced salt solution was then removed through the paracentesis site and the intraocular pressure at the end of the case was approximately 20 by palpation. All drapes were then removed. TobraDex ointment was then placed in the eye, which was closed beneath a semi-pressure patch dressing. The patient tolerated this procedure well and left the operating room awake and alert. The patient is to follow-up in my office in the morning. MD JEFERSON Barrera/GEETHA /10:41 AM /12:50 PM
== END | disposition home or self-care (01) ==
LOC: PHSDC 06:08
PROVIDERS: ATTEND Optometrist Occupational Vision
DX: H25.12 Age-related nuclear cataract, left eye (principal)
CPT/HCPCS: 00142; 66984; J2250; J7040; V2632

== ENCOUNTER 2018-05-12 14:58 | Observation (INO) ==
[2018-05-12] MEDS ORDERED: Sod Chloride 0.9% Inj 1,000 ML IV.CONT SCH (15:30)
--- NOTE | 2018-05-12 15:38 | ED ---
HPI General Chief Complaint: Neuro Symptoms/Deficit Stated Complaint: Stroke Time Seen by Provider: 05/12/18 15:15 Source: patient Mode of arrival: ambulatory Limitations: no limitations History of Present Illness HPI Narrative: 67-year-old female complains of trouble speaking and confusion. Patient states that she started having trouble speaking a week ago. Patient states that the symptoms lasted the whole evening got better overnight and get worse again the next day. Patient states that the symptoms began got better for 3 days subsequently. Patient states that the symptoms got worse again 2 days ago. Patient states that he is not having some mental confusion at that time. Patient states that she had trouble getting words out today. Patient denies any headache. Patient denies any visual change. Patient denies any neck pain. Patient denies any chest pain or shortness of breath. Patient denies abdominal pain. Patient denies any focal weakness or numbness of the extremity. Patient has history of intracranial hemorrhage and for TIA in the past. Patient did not require any surgical intervention for the brain bleed. Patient with history of right occipital lobe hemorrhagic stroke. Patient is unable to take antiplatelet therapy. Patient also has a history of left vision loss. Patient has history of left breast cancer. Patient has been seen by neurologist Dr. Lockwood. Patient was on Depakote until a week ago. Patient was advised to stop Depakote and switch to Topamax because of the drowsiness side effect of Depakote. Patient states that she is still having drowsiness from the Topamax. Patient has history of hypertension, diabetes, hyperlipidemia. Patient is a non-smoker. Patient denies any alcohol or drug abuse. Onset (ago): day(s) Location: speech and altered History of same: Yes Severity: moderate Quality: intermittent Relieving factors: none Exacerbating factors: none Context: gradual onset and change in medication On Anticoagulants: No Associated symptoms: confusion Treatments Prior to Arrival: none Related Data Home Medications Medication Instructions Recorded Confirmed alprazolam 0.5 mg PO BID 05/12/18 05/12/18 atorvastatin 80 mg PO DAILY 05/12/18 05/12/18 clonidine HCl 0.1 mg PO DAILY PRN 05/12/18 05/12/18 duloxetine 60 mg PO DAILY 05/12/18 05/13/18 losartan 25 mg PO BID 05/12/18 05/12/18 metoprolol succinate 100 mg PO DAILY 05/12/18 05/12/18 omeprazole 20 mg PO DAILY 05/12/18 05/12/18 metformin 500 mg PO DAILY 05/13/18 05/13/18 Allergies Allergy/AdvReac Type Severity Reaction Status Date / Time clarithromycin Allergy Severe RASH Verified 05/12/18 15:12 doxycycline Allergy Severe Rash Verified 10/15/17 06:39 penicillin G Allergy Severe RASH Verified 05/12/18 15:12 sulfamethoxazole Allergy Severe RASH/ Verified 05/12/18 15:12 NAUSEA trimethoprim Allergy Severe RASH/ Verified 05/12/18 15:12 NAUSEA aspirin Allergy Unknown AVOID DO Verified 05/12/18 15:12 TO CVA dipyridamole Allergy Unknown Headache Verified 05/12/18 15:12 codeine AdvReac Severe HALLUCINATI Verified 05/12/18 15:12 ONS Review of Systems Except as stated in HPI: all other systems reviewed are negative PMFSH History History Provided By: Patient Medical History Medical History Diabetes (Chronic) Hypertension (Chronic) COPD (chronic obstructive pulmonary disease) (Acute) Surgical History Surgical History H/O tubal ligation (Acute) History of arthroscopic knee surgery (Acute) History of total right knee replacement (TKR) (Acute) Hx laparoscopic cholecystectomy (Acute) Hx of appendectomy (Acute) Hx of cardiac catheterization (Acute) Hx of cataract surgery (Acute) S/P breast lumpectomy (Acute) Family History Family History Father Family history of acute myocardial infarction Mother Family history of cancer Social History Social History Substance History: No History of Abuse Second Hand Smoke Exposure: No Smoking Status: Never smoker How Often Do You Have a Drink Containing Alcohol: Never Recent Travel in [place] within the Last 8 Weeks: No Recent Out of Country Travel within the Last 8 Weeks: No Exam Narrative Exam Narrative: GENERAL: Well-nourished, well-developed patient. SKIN: Focused skin assessment warm/dry. HEAD: Normocephalic. EYES: No scleral icterus. No injection or drainage. Pupils 2 mm equal reactive. NECK: Supple, trachea midline. No JVD or lymphadenopathy. CARDIOVASCULAR: Regular rate and rhythm without murmurs, gallops, or rubs. RESPIRATORY: Breath sounds equal bilaterally. No accessory muscle use. GASTROINTESTINAL: Abdomen soft, non-tender, nondistended. MUSCULOSKELETAL: No cyanosis, or edema. BACK: Nontender without obvious deformity. No CVA tenderness. Neurologic exam: Patient awake and alert oriented 3. Patient has no obvious focal neurological deficit. Course Initial Documented Vital Signs Temperature 98.2 F 05/12/18 15:14 Pulse Rate 65 05/12/18 15:14 Respiratory Rate 18 05/12/18 15:14 Blood Pressure 145/62 H 05/12/18 15:14 Pulse Oximetry 96 05/12/18 15:14 Last Documented Vital Signs Temperature 96.2 F L 05/14/18 08:00 Pulse Rate 60 05/14/18 08:00 Respiratory Rate 18 05/14/18 08:00 Blood Pressure 165/74 H 05/14/18 08:00 Pulse Oximetry 97 05/14/18 08:00 Medical Decision Making MDM Narrative Medical decision making narrative: 67-year-old female with trouble speaking and mental confusion. History of TIA and brain bleed in the past. Normal saline solution 70 cc an hour. 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 Lab Data Lab results reviewed: Yes I reviewed the patient's lab results. Result diagrams: 05/12/18 15:53 05/12/18 15:53 Lab Results 05/12/18 05/12/18 05/12/18 Range/Units 15:53 15:53 15:53 CBC w Diff Auto diff final WBC 5.2 (4.0-11.0) th/mm3 RBC 4.28 (4.00-5.30) mil/mm3 Hgb 12.2 (11.6-15.3) gm/dL Hct 38.1 (35.0-46.0) % MCV 89.0 (80.0-100.0) fL MCH 28.5 (27.0-34.0) pg MCHC 32.0 (32.0-36.0) % RDW 14.5 (11.6-17.2) % Plt Count 234 (150-450) th/mm3 MPV 8.7 (7.0-11.0) fL Neut % (Auto) 49.9 (16.0-70.0) % Lymph % (Auto) 33.7 (9.0-44.0) % Maries % (Auto) 12.8 H (0.0-8.0) % Eos % (Auto) 3.1 (0.0-4.0) % Baso % (Auto) 0.5 (0.0-2.0) % Neut # (Auto) 2.5 (1.8-7.7) th/mm3 Lymph # (Auto) 1.8 (1.0-4.8) th/mm3 Maries # (Auto) 0.7 (0.0-0.9) th/mm3 Eos # (Auto) 0.2 (0.0-0.4) th/mm3 Baso # (Auto) 0.0 (0.0-0.2) th/mm3 WBC Differential . Differential Comment . PT 10.2 (9.8-11.6) sec INR 1.0 Ratio APTT 22.0 L (24.3-30.1) sec Sodium 143 (136-145) meq/L Potassium 3.8 (3.5-5.1) meq/L Chloride 112 H (98-107) meq/L Carbon Dioxide 24.4 (21.0-32.0) meq/L Anion Gap 7 (5-15) meq/L BUN 15 (7-18) mg/dL Creatinine 1.00 (0.50-1.00) mg/dL Estimated GFR 55 L (>89) mL/min POC Glucose (68-110) mg/dl Random Glucose 142 H (74-106) mg/dL Calcium 8.3 L (8.5-10.1) mg/dL Total Bilirubin 0.2 (0.2-1.0) mg/dL AST 19 (15-37) U/L ALT 26 (10-53) U/L Alkaline Phosphatase 69 (45-117) U/L Ammonia (11-32) mcmol/L Total Protein 6.1 L (6.4-8.2) g/dL Albumin 3.2 L (3.4-5.0) g/dL TSH (0.358-3.740) uIU/mL Thyroxine (T4) (4.8-13.9) mcg/dL Urine Color (Yellw/Straw) Urine Clarity (Clear) Urine pH (5.0-8.5) Ur Specific Leo (1.002-1.035) Urine Protein (Neg-Trace) mg/dL Urine Glucose (UA) (Negative) mg/dL Urine Ketones (Negative) mg/dL Urine Occult Blood (Negative) Urine Nitrate (Negative) Urine Bilirubin (Negative) Urine Urobilinogen (Less than 2) mg/dL Ur Leukocyte Esterase (Negative) Urine WBC (0-5) /hpf Micro UA Comment Urine Culture Comments 05/12/18 05/13/18 05/13/18 Range/Units 19:15 11:30 11:30 CBC w Diff WBC (4.0-11.0) th/mm3 RBC (4.00-5.30) mil/mm3 Hgb (11.6-15.3) gm/dL Hct (35.0-46.0) % MCV (80.0-100.0) fL MCH (27.0-34.0) pg MCHC (32.0-36.0) % RDW (11.6-17.2) % Plt Count (150-450) th/mm3 MPV (7.0-11.0) fL Neut % (Auto) (16.0-70.0) % Lymph % (Auto) (9.0-44.0) % Maries % (Auto) (0.0-8.0) % Eos % (Auto) (0.0-4.0) % Baso % (Auto) (0.0-2.0) % Neut # (Auto) (1.8-7.7) th/mm3 Lymph # (Auto) (1.0-4.8) th/mm3 Maries # (Auto) (0.0-0.9) th/mm3 Eos # (Auto) (0.0-0.4) th/mm3 Baso # (Auto) (0.0-0.2) th/mm3 WBC Differential Differential Comment PT (9.8-11.6) sec INR Ratio APTT (24.3-30.1) sec Sodium (136-145) meq/L Potassium (3.5-5.1) meq/L Chloride (98-107) meq/L Carbon Dioxide (21.0-32.0) meq/L Anion Gap (5-15) meq/L BUN (7-18) mg/dL Creatinine (0.50-1.00) mg/dL Estimated GFR (>89) mL/min POC Glucose (68-110) mg/dl Random Glucose (74-106) mg/dL Calcium (8.5-10.1) mg/dL Total Bilirubin (0.2-1.0) mg/dL AST (15-37) U/L ALT (10-53) U/L Alkaline Phosphatase (45-117) U/L Ammonia 16 (11-32) mcmol/L Total Protein (6.4-8.2) g/dL Albumin (3.4-5.0) g/dL TSH 2.670 (0.358-3.740) uIU/mL Thyroxine (T4) 7.9 (4.8-13.9) mcg/dL Urine Color Yellow (Yellw/Straw) Urine Clarity Clear (Clear) Urine pH 6.5 (5.0-8.5) Ur Specific Leo 1.010 (1.002-1.035) Urine Protein Negative (Neg-Trace) mg/dL Urine Glucose (UA) Negative (Negative) mg/dL Urine Ketones Negative (Negative) mg/dL Urine Occult Blood Negative (Negative) Urine Nitrate Negative (Negative) Urine Bilirubin Negative (Negative) Urine Urobilinogen 0.2 (Less than 2) mg/dL Ur Leukocyte Esterase Negative (Negative) Urine WBC 0-5 (0-5) /hpf Micro UA Comment Culture not ind Urine Culture Comments Culture not ind 05/14/18 Range/Units 07:54 CBC w Diff WBC (4.0-11.0) th/mm3 RBC (4.00-5.30) mil/mm3 Hgb (11.6-15.3) gm/dL Hct (35.0-46.0) % MCV (80.0-100.0) fL MCH (27.0-34.0) pg MCHC (32.0-36.0) % RDW (11.6-17.2) % Plt Count (150-450) th/mm3 MPV (7.0-11.0) fL Neut % (Auto) (16.0-70.0) % Lymph % (Auto) (9.0-44.0) % Maries % (Auto) (0.0-8.0) % Eos % (Auto) (0.0-4.0) % Baso % (Auto) (0.0-2.0) % Neut # (Auto) (1.8-7.7) th/mm3 Lymph # (Auto) (1.0-4.8) th/mm3 Maries # (Auto) (0.0-0.9) th/mm3 Eos # (Auto) (0.0-0.4) th/mm3 Baso # (Auto) (0.0-0.2) th/mm3 WBC Differential Differential Comment PT (9.8-11.6) sec INR Ratio APTT (24.3-30.1) sec Sodium (136-145) meq/L Potassium (3.5-5.1) meq/L Chloride (98-107) meq/L Carbon Dioxide (21.0-32.0) meq/L Anion Gap (5-15) meq/L BUN (7-18) mg/dL Creatinine (0.50-1.00) mg/dL Estimated GFR (>89) mL/min POC Glucose 91 (68-110) mg/dl Random Glucose (74-106) mg/dL Calcium (8.5-10.1) mg/dL Total Bilirubin (0.2-1.0) mg/dL AST (15-37) U/L ALT (10-53) U/L Alkaline Phosphatase (45-117) U/L Ammonia (11-32) mcmol/L Total Protein (6.4-8.2) g/dL Albumin (3.4-5.0) g/dL TSH (0.358-3.740) uIU/mL Thyroxine (T4) (4.8-13.9) mcg/dL Urine Color (Yellw/Straw) Urine Clarity (Clear) Urine pH (5.0-8.5) Ur Specific Leo (1.002-1.035) Urine Protein (Neg-Trace) mg/dL Urine Glucose (UA) (Negative) mg/dL Urine Ketones (Negative) mg/dL Urine Occult Blood (Negative) Urine Nitrate (Negative) Urine Bilirubin (Negative) Urine Urobilinogen (Less than 2) mg/dL Ur Leukocyte Esterase (Negative) Urine WBC (0-5) /hpf Micro UA Comment Urine Culture Comments Imaging Data Radiologist's impression: ITS Impressions Head MRI 05/12/18 15:21 CONCLUSION: 1. No acute abnormality seen. 2. Area of encephalomalacia from prior hemorrhage in the right occipital lobe. Neck MRA 05/12/18 15:21 CONCLUSION: 1. No sign of obstruction or significant stenosis. 2. Beading at the internal carotid arteries being more prominent on the left. This could be either artifactual or from underlying conditions such as fibromuscular dysplasia. Percent stenosis is calculated using the diameter of the stenotic region over the diameter of the normal distal internal carotid artery Chest X-Ray 05/12/18 15:26 CONCLUSION: Cardiomegaly. No acute pulmonary disease. Head MRA 05/12/18 15:29 CONCLUSION: Negative for major branch vessel occlusion Moderate atherosclerotic intracranial vascular disease Carotid Doppler Study 05/12/18 20:04 CONCLUSION: Mild plaque at the left carotid bulb region without a significant stenosis seen. Head CTA 05/13/18 00:00 CONCLUSION: 1. 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 2. The remaining intracranial vascular structures demonstrate no acute finding. Neck CTA 05/13/18 00:00 CONCLUSION: 1. No significant atherosclerotic disease or stenosis within either internal carotid artery. 2. Asymmetrically enlarged and heterogeneous right lobe of the thyroid gland. Discharge Plan Discharge Disposition Patient Disposition: 01 Discharge Home Discharge Condition Condition: Fair Discharge Order Discharge Orders: Discharge Order (Routine); Ordered 05/14/18 Ordered By: Josr Higuera Discharge Details Anticipated Discharge Date: 05/14/18 Physicians Team ED Provider: Emanuel Bauman Primary Care Provider: Carmelo Cross Attending Provider: Carmelo Cross Other Providers: Yash Chu Status ED Status: Left Department Discharge Information Discharge Date/Time: 05/12/18 21:51 Discharge Location: All at Home
[2018-05-12 16:02] LABS: Baso % (Auto) 0.5 % (0.0-2.0); Eos # (Auto) 0.2 th/mm3 (0.0-0.4); Eos % (Auto) 3.1 % (0.0-4.0); Hematocrit 38.1 % (35.0-46.0); Hemoglobin 12.2 gm/dL (11.6-15.3); Lymph # (Auto) 1.8 th/mm3 (1.0-4.8); Lymph % (Auto) 33.7 % (9.0-44.0); Mean Corpuscular Hemoglobin 28.5 pg (27.0-34.0); Mean Platelet Volume 8.7 fL (7.0-11.0); Mono # (Auto) 0.7 th/mm3 (0.0-0.9); Mono % (Auto) 12.8 % (0.0-8.0); Neut # (Auto) 2.5 th/mm3 (1.8-7.7); Neut % (Auto) 49.9 % (16.0-70.0); Platelet Count 234 th/mm3 (150-450); Red Blood Count 4.28 mil/mm3 (4.00-5.30); Red Cell Distribution Width 14.5 % (11.6-17.2); White Blood Count 5.2 th/mm3 (4.0-11.0)
--- NOTE | 2018-05-12 16:09 | XR ---
EXAM DATE: 05/12/2018 4:00 PM EDT AGE/SEX: 67 years / Female INDICATIONS: Shortness of breath. CLINICAL DATA: This is the patient's initial encounter. Patient reports that signs and symptoms have been present for 1 day and indicates a pain score of 0/10. MEDICAL/SURGICAL HISTORY: . Hypertension. Hernia, hiatal. . Appendectomy. Cholecystectomy. COMPARISON: [facility] [place], CHEST SINGLE AP, 01/15/2017. . FINDINGS: The cardiac silhouette is enlarged in transverse diameter. The lungs are free of acute parenchymal op acity. No effusions are identified. CONCLUSION: Cardiomegaly. No acute pulmonary disease. Electronically signed by: Yash Khan MD 05/12/2018 4:08 PM EDT
[2018-05-12 16:13] LABS: Chloride 112 meq/L (98-107); Potassium 3.8 meq/L (3.5-5.1); Sodium 143 meq/L (136-145)
[2018-05-12 16:16] LABS: Calcium 8.3 mg/dL (8.5-10.1)
[2018-05-12 16:17] LABS: Albumin 3.2 g/dL (3.4-5.0); Anion Gap 7 meq/L (5-15); Blood Urea Nitrogen 15 mg/dL (7-18); Carbon Dioxide 24.4 meq/L (21.0-32.0); Glucose,Random 142 mg/dL (74-106)
[2018-05-12 16:20] LABS: Alanine Aminotransferase 26 U/L (10-53); Aspartate Aminotransferase 19 U/L (15-37); Glomerular Filtration Rate 55 mL/min (>89)
[2018-05-12 16:22] LABS: Total Protein 6.1 g/dL (6.4-8.2)
[2018-05-12 16:23] LABS: Alkaline Phosphatase 69 U/L (45-117)
[2018-05-12 16:29] LABS: Prothrombin Time 10.2 sec (9.8-11.6)
--- NOTE | 2018-05-12 17:53 | MR ---
EXAM DATE: 05/12/2018 5:47 PM EDT AGE/SEX: 67 years / Female INDICATIONS: Cephalgia. Slurred speech. CLINICAL DATA: This is the patient's initial encounter. Patient reports that signs and symptoms have been present for 1 day and indicates a pain score of 3/10. MEDICAL/SURGICAL HISTORY: Carcinoma, breast. Diabetes. Hypertension. Appendectomy. Cholecyst ectomy. Tubal ligation. Right knee surgery. Right lumpectomy. COMPARISON: [facility], MR BRAIN W/O CONTRAST, 05/27/2017. . TECHNIQUE: 3D [id number] MRA was performed. Source images, multiplanar STS MIP, and 3D volum e MIP reconstructions were reviewed. FINDINGS: There is a small 4 mm aneurysm on the right which in the first MCA branch. There is stenosis of the f irst MCA branch on the left. There is no major branch vessel occlusion. There is moderate atherosclerotic intracranial vascular disease evident. CONCLUSION: Negative for major branch vessel occlusion Moderate atherosclerotic intracranial vascular disease Electronically signed by: Hernandez Kwon MD 05/12/2018 5:52 PM EDT
[2018-05-12] MEDS ORDERED: Gadodiamide PF Inj 287 MG/ML 20 ML Syringe (for RAD MRI) IVCONTRAST ONE (18:00)
--- NOTE | 2018-05-12 18:16 | MR ---
EXAM DATE: 05/12/2018 5:59 PM EDT AGE/SEX: 67 years / Female INDICATIONS: Cephalgia. Slurred speech. CLINICAL DATA: This is the patient's initial encounter. Patient reports that signs and symptoms have been present for 1 day and indicates a pain score of 3/10. MEDICAL/SURGICAL HISTORY: Carcinoma, breast. Diabetes. Hypertension. Appendectomy. Cholecyst ectomy. Tubal ligation. Lumpectomy. Right knee surgery. COMPARISON: [facility], CT BRAIN W/O CONTRAST, 12/14/2016. [facility], MR BRAIN W/O CONTRAST, 05/27/2017. [facility], MRA HEAD W/O CONTRAST, 05/12/2018. . TECHNIQUE: Multiplanar, multisequence examination of the brain was performed without and with 20 ml O mniscan (gadodiamide) contrast as a single exam dose. FINDINGS: Cerebrum: There is an area of encephalomalacia from prior hemorrhage in the right occipital lobe. Th e ventricles are normal for age. No evidence of midline shift, mass lesion, hemorrhage or acute infa rction. No extraaxial fluid collections are seen. The pituitary gland and suprasellar cistern are n ormal in configuration. White Matter: No significant signal abnormalities are seen in the white matter. Posterior Fossa: The cerebellum and brainstem are intact. The 4th ventricle is midline. The cerebel lopontine angle is unremarkable. The cerebellar tonsils are normal in position. Diffusion Imaging: No focal areas of restricted diffusion are seen. No evidence of acute infarction . Extracranial: The visualized portions of the orbits are unremarkable. There is mild mucosal disease at the left maxillary sinus. Post Contrast: No abnormal areas of parenchymal or dural enhancement. No evidence of blood-brain ba rrier breakdown. CONCLUSION: 1. No acute abnormality seen. 2. Area of encephalomalacia from prior hemorrhage in the right occipital lobe. Electronically signed by: Cristian Javed MD 05/12/2018 6:15 PM EDT
--- NOTE | 2018-05-12 18:26 | MR ---
EXAM DATE: 05/12/2018 6:13 PM EDT AGE/SEX: 67 years / Female INDICATIONS: Stenosis. CLINICAL DATA: This is the patient's initial encounter. Patient reports that signs and symptoms have been present for 1 day and indicates a pain score of 0/10. MEDICAL/SURGICAL HISTORY: Carcinoma, breast. Diabetes. Hypertension. Appendectomy. Cholecyst ectomy. Tubal ligation. Right knee surgery. Right lumpectomy. COMPARISON: [facility], CT SOFT TISSUE NECK W/ CONTRAST, 07/11/2015. . TECHNIQUE: 20 ml Omniscan (gadodiamide) contrast infused MRA (single exam dose) of the extracranial circulation was performed using a neurovascular coil. Postprocessing was performed, including rotat ing sub-volume maximum intensity projections of each carotid artery, rotating full-volume maximum int ensity projections of both carotid arteries, sagittal and coronal sliding thin-slab reformations of e ach carotid artery, and left oblique sliding thin-slab reformation through the aortic arch to include the origin of the arch branch vessels. FINDINGS: Aortic Arch : There is a three-vessel origin of the great vessels from the aorta. No evidence of o stial narrowing. Right Carotid : The common carotid artery is intact. The carotid bulb has a normal configuration wi thout ulceration or narrowing. The internal carotid artery lumen is smooth without stenosis. The ex ternal carotid artery is intact. Left Carotid : The common carotid artery is intact. The carotid bulb has a normal configuration wit hout ulceration or narrowing. The internal carotid artery lumen is smooth without stenosis. The ext ernal carotid artery is intact. There appears to be a beading at the internal carotid arteries being more prominent on the left, this could be artifactual. Vertebrals : The vertebral arteries have a symmetric diameter. No stenotic lesions are seen. CONCLUSION: 1. No sign of obstruction or significant stenosis. 2. Beading at the internal carotid arteries being more prominent on the left. This could be either artifactual or from underlying conditions such as fibromuscular dysplasia. Percent stenosis is calculated using the diameter of the stenotic region over the diameter of the nor mal distal internal carotid artery Electronically signed by: Cristian Javed MD 05/12/2018 6:25 PM EDT
[2018-05-12 19:24] LABS: Bilirubin,Urine Negative (Negative); Clarity,Urine Clear (Clear); Color,Urine Yellow (Yellw/Straw); Glucose,Urine (UA) Negative (Negative); Leukocyte Esterase,Urine Negative (Negative); Nitrite,Urine Negative (Negative); PH,Urine 6.5 (5.0-8.5); Urobilinogen,Urine 0.2 mg/dL (Less than 2)
[2018-05-12 19:32] LABS: WBC,Urine 0-5 /hpf (0-5)
--- NOTE | 2018-05-12 21:56 | US ---
EXAM DATE: 05/12/2018 9:53 PM EDT AGE/SEX: 67 years / Female INDICATIONS: Slurred speech and confusion. CLINICAL DATA: This is the patient's initial encounter. Patient reports that signs and symptoms have been present for 1 week and indicates a pain score of 0/10. MEDICAL/SURGICAL HISTORY: Hypertension. Diabetes. Hypercholesterolemia. COPD. CVA - December 2016. TIA. None. COMPARISON: No prior exams available for comparison. VELOCITY PARAMETERS: ICA/CCA Ratio: Right 1.5 , Left 1.6 ICA: Right 115 cm/sec, Left 108 cm/sec CCA: Right 77 cm/sec, Left 68 cm/sec ECA: Right 89 cm/sec, Left 62 cm/sec Vertebral: Right 50 cm/sec antegrade, Left 66 cm/sec antegrade FINDINGS: Right Carotid: No significant plaque is visualized.The waveforms are within normal limits. Left Carotid: Mild arteriosclerotic plaque is visualized. The waveforms are within normal limits. Other: None. CONCLUSION: Mild plaque at the left carotid bulb region without a significant stenosis seen. Electronically signed by: Cristian Javed MD 05/12/2018 9:55 PM EDT
--- NOTE | 2018-05-13 07:00 | P.HP ---
History of Present Illness Service: [facility] adult medicine service Primary Care Physician: Carmelo Cross MD Chief Complaint: Speech disturbance, confusion History of Present Illness: 67-year-old female with underlying diabetes and prior history of TIA and intracranial hemorrhage presents with complaints of trouble speaking and confusion. Patient states that she started having trouble speaking a week ago. Patient states that the symptoms lasted the whole evening got better overnight and get worse again the next day. Since that time she has had intermittent problems with what appears to be expressive aphasia which are gradually worsening. Additionally she started having periods of confusion over the last couple of days which were associated with these speech difficulties. Patient states that she had trouble getting words out and becomes frustrated as she reports she knows what she wants to say but cannot vocalize the words in her mind. Patient denies any headache recently but has had intermittent headaches since her intracranial hemorrhage in early 2016. Patient denies any visual change. Patient denies any neck pain. Patient denies any chest pain or shortness of breath. Patient denies abdominal pain. Patient denies any focal weakness or numbness of the extremity. Patient has history of intracranial hemorrhage and TIA in the past. Patient did not require any surgical intervention for the brain bleed which occurred in 2017. Patient is reportedly unable to take antiplatelet therapy. Patient also has a history of left vision loss. Patient has history of left breast cancer. Patient is followed closely by her neurologist Dr. Lockwood. Patient has been experiencing extreme fatigue and somnolence since her intracranial hemorrhage in early 2016. She was on Depakote to help with her headaches but this apparently made her too fatigued. Approximately 10 days ago she was started on Topamax in place of the Depakote. She started noticing the speech problems approximately 2 days after starting the topiramate. Patient states that she is still having drowsiness from the Topamax. Patient has history of hypertension, diabetes, hyperlipidemia. Patient is a non-smoker. Patient denies any alcohol or drug abuse. Workup during this current hospital stay is included MRI brain, MRA brain, MRA carotids, chest x-ray, EKG, carotid ultrasound, all of which are essentially unremarkable for any acute findings. MRI brain does have some encephalomalacia in the right occipital area which corresponds to her previous bleed site. Labs are essentially unremarkable. Vital signs remained stable. Patient is able to speak quite fluently with me this morning and give detailed history of recent events including timing of her periods of confusion. - Diagnosis (1) Confusion (2) Aphasia (3) Diabetic nephropathy (4) Major depression, chronic (5) Anxiety (6) Chronic respiratory failure (7) Radiation fibrosis of lung (8) Subdural occipital hemorrhage Inpatient Certification: I certify that the inpatient services were ordered in accordance with Medicare regulations governing the order. This includes certification that hospital inpatient services are reasonable and necessary and in the case of services not specified as inpatient-only under 42 CFR 419.22(n), that they are appropriately provided as inpatient services in accordance to with the 2-midnight benchmark under 43 CFR 412.3(e) Plans for Post Hospital Care: Home Review of Systems Constitutional: Reports fatigue, Reports lack of energy, Reports malaise, Reports weakness Ears, Nose, Mouth, and Throat: Reports poor balance Cardiovascular: Denies chest pain, Denies chest pain at rest, Denies chest pain with activity, Denies excessive sweating, Denies fainting, Denies fast heart rate, Denies foot swelling, Denies generalized swelling, Denies irregular heart rhythm, Denies leg pain with activity, Denies leg sores, Denies leg swelling, Denies lightheadedness, Denies radiating jaw, neck or arm pain, Denies rapid, pounding, or irregular heartbeat, Denies shortness of breath, Denies shortness of breath with activity, Denies shortness of breath when lying down, Denies shortness of breath causing sudden awakening, Denies slow heart rate, Denies other Respiratory: Reports shortness of breath, Reports snoring, Denies change in phlegm color, Denies chest congestion, Denies cough, Denies coughing up blood, Denies excessive phlegm production, Denies pain on inspiration, Denies pain with cough, Denies shortness of breath with activity, Denies stridor, Denies wheezing, Denies other Gastrointestinal: Denies abdominal pain, Denies belching, Denies black, tarry stools, Denies bloating, Denies bright, red blood in stools, Denies change in bowel habits, Denies constant urge to pass stool, Denies change in stools, Denies coffee ground vomit, Denies constipation, Denies cramping, Denies difficulty swallowing, Denies excessive passing of gas, Denies feeling full early, Denies heartburn, Denies incontinent of stools, Denies loose stools, Denies nausea, Denies pain with swallowing, Denies vomiting, Denies vomiting blood, Denies other Musculoskeletal: Reports abnormal walking Neurologic: Reports abnormal speech, Reports confusion, Reports headache(s), Reports memory loss, Reports unsteadiness, Denies abnormal hearing, Denies abnormal movements, Denies abnormal walking, Denies behavioral changes, Denies burning sensations, Denies dizziness, Denies fainting, Denies frequent falls, Denies lack of coordination, Denies localized weakness, Denies loss of vision, Denies numbness, Denies other visual disturbances, Denies radiating pain, Denies restless legs, Denies convulsions, Denies seizure-like activity, Denies sensory deficit, Denies tingling, Denies tingling/numbness/burning sensations, Denies tremor(s), Denies weakness, Denies other Psychiatric: Reports abnormal sleep pattern, Reports anxiety, Reports confusion , Reports depression, Reports difficulty concentrating, Reports memory loss Endocrine: Denies cold intolerance, Denies excessive sweating, Denies flushing, Denies heat intolerance, Denies increased hunger, Denies increased thirst, Denies increased urination, Denies rapid, pounding, or irregular heartbeat, Denies other Hematologic/Lymphatic: Denies easy bleeding, Denies easy bruising, Denies enlarged lymph nodes, Denies other PMFSH - History History Provided By: Patient - Medical History Medical History: Medical History (Last Updated 05/13/18 @ 06:46 by Josr Higuera MD, PhD) Diabetes (Chronic) Hypertension (Chronic) COPD (chronic obstructive pulmonary disease) - Surgical History Surgical History: Surgical History (Last Updated 05/13/18 @ 06:49 by Josr Higuera MD, PhD) H/O tubal ligation History of arthroscopic knee surgery History of total right knee replacement (TKR) Hx laparoscopic cholecystectomy Hx of appendectomy Hx of cardiac catheterization Hx of cataract surgery S/P breast lumpectomy - Family History Family History: Family History (Last Updated 05/13/18 @ 06:50 by Josr Higuera MD, PhD) Father Family history of acute myocardial infarction Mother Family history of cancer - Tobacco History Second Hand Smoke Exposure: No Tobacco Use In Past 30 Days: No Smoking Status: Never smoker - Alcohol History How Often Do You Have a Drink Containing Alcohol: Never - Substance Use History Substance History: No History of Abuse - Travel History Recent Travel in the [place] Within the Last 8 Weeks: No Recent Travel Out of the Country Within the Last 8 Weeks: No - Immunization History Tetanus Immunization: >5 Years Hx Influenza Vaccine This Season: Yes Medications and Allergies Allergies Allergy/AdvReac Type Severity Reaction Status Date / Time clarithromycin Allergy Severe RASH Verified 05/12/18 15:12 doxycycline Allergy Severe Rash Verified 10/15/17 06:39 penicillin G Allergy Severe RASH Verified 05/12/18 15:12 sulfamethoxazole Allergy Severe RASH/ Verified 05/12/18 15:12 NAUSEA trimethoprim Allergy Severe RASH/ Verified 05/12/18 15:12 NAUSEA aspirin Allergy Unknown AVOID DO Verified 05/12/18 15:12 TO CVA dipyridamole Allergy Unknown Headache Verified 05/12/18 15:12 codeine AdvReac Severe HALLUCINATI Verified 05/12/18 15:12 ONS Home Medications Medication Instructions Recorded Confirmed Type alprazolam 0.5 mg PO BID 05/12/18 05/12/18 History atorvastatin 80 mg PO DAILY 05/12/18 05/12/18 History clonidine HCl 0.1 mg PO DAILY PRN 05/12/18 05/12/18 History duloxetine 60 mg PO DAILY 05/12/18 05/13/18 History losartan 25 mg PO BID 05/12/18 05/12/18 History metoprolol succinate 100 mg PO DAILY 05/12/18 05/12/18 History omeprazole 20 mg PO DAILY 05/12/18 05/12/18 History topiramate [Topamax] 15 mg PO BID 05/12/18 05/12/18 History metformin 500 mg PO DAILY 05/13/18 05/13/18 History Exam Vital signs: Vital Signs 05/12/18 15:14 05/12/18 16:04 05/12/18 16:10 Temperature 98.2 F Pulse Rate 65 60 Respiratory Rate 18 18 Blood Pressure 145/62 H 125/55 L Pulse Oximetry 96 96 96 05/12/18 17:59 05/12/18 19:22 05/12/18 23:20 Temperature 97.1 F L Pulse Rate 60 60 61 Respiratory Rate 16 16 20 Blood Pressure 124/60 114/57 L 125/60 Pulse Oximetry 97 97 97 05/13/18 02:25 Temperature 97.3 F L Pulse Rate 60 Respiratory Rate 20 Blood Pressure 117/51 L Pulse Oximetry 95 Intake & Output 05/12/18 05/12/18 05/13/18 06:59 18:59 06:59 Weight 86.183 kg Narrative: GENERAL: No acute distress, pleasant, sleeping initially but arouses to voice. Alert and oriented. Cooperative with exam. SKIN: Warm and dry. HEAD: Atraumatic. Normocephalic. EYES: Pupils equal and round. No scleral icterus. No injection or drainage. Extraocular motions intact. ENT: No nasal bleeding or discharge. Mucous membranes pink and moist. NECK: Trachea midline. No JVD. CARDIOVASCULAR: Regular rate and rhythm. No significant murmur appreciated. RESPIRATORY: No accessory muscle use. Clear to auscultation. Breath sounds equal bilaterally. GASTROINTESTINAL: Abdomen soft, non-tender, nondistended. Hepatic and splenic margins not palpable. MUSCULOSKELETAL: Extremities without clubbing, cyanosis, or edema. No obvious deformities. NEUROLOGICAL: Awake and alert. No obvious cranial nerve deficits. Motor grossly within normal limits. 4.5 out of 5 muscle strength in the right upper extremity but otherwise 5 out of 5 muscle strength in extremities. Patient reports this is stable since her stroke in approximately 2005. Normal speech. No confusion. PSYCHIATRIC: Appropriate mood and affect; insight and judgment normal. Results - Labs CBC & Chem 7: 05/12/18 15:53 05/12/18 15:53 Labs: Laboratory Results - last 24 hr 05/12/18 05/12/18 05/12/18 15:53 15:53 15:53 CBC w Diff Auto diff final WBC 5.2 RBC 4.28 Hgb 12.2 Hct 38.1 MCV 89.0 MCH 28.5 MCHC 32.0 RDW 14.5 Plt Count 234 MPV 8.7 Neut % (Auto) 49.9 Lymph % (Auto) 33.7 Boundary % (Auto) 12.8 H Eos % (Auto) 3.1 Baso % (Auto) 0.5 Neut # (Auto) 2.5 Lymph # (Auto) 1.8 Boundary # (Auto) 0.7 Eos # (Auto) 0.2 Baso # (Auto) 0.0 WBC Differential . Differential Comment . PT 10.2 INR 1.0 APTT 22.0 L Sodium 143 Potassium 3.8 Chloride 112 H Carbon Dioxide 24.4 Anion Gap 7 BUN 15 Creatinine 1.00 Estimated GFR 55 L Random Glucose 142 H Calcium 8.3 L Total Bilirubin 0.2 AST 19 ALT 26 Alkaline Phosphatase 69 Total Protein 6.1 L Albumin 3.2 L Urine Color Urine Clarity Urine pH Ur Specific [place] Urine Protein Urine Glucose (UA) Urine Ketones Urine Occult Blood Urine Nitrate Urine Bilirubin Urine Urobilinogen Ur Leukocyte Esterase Urine WBC Micro UA Comment Urine Culture Comments 05/12/18 19:15 CBC w Diff WBC RBC Hgb Hct MCV MCH MCHC RDW Plt Count MPV Neut % (Auto) Lymph % (Auto) Bound[place] % (Auto) Eos % (Auto) Baso % (Auto) Neut # (Auto) Lymph # (Auto) Bound[place] # (Auto) Eos # (Auto) Baso # (Auto) WBC Differential Differential Comment PT INR APTT Sodium Potassium Chloride Carbon Dioxide Anion Gap BUN Creatinine Estimated GFR Random Glucose Calcium Total Bilirubin AST ALT Alkaline Phosphatase Total Protein Albumin Urine Color Yellow Urine Clarity Clear Urine pH 6.5 Ur Specific [place] 1.010 Urine Protein Negative Urine Glucose (UA) Negative Urine Ketones Negative Urine Occult Blood Negative Urine Nitrate Negative Urine Bilirubin Negative Urine Urobilinogen 0.2 Ur Leukocyte Esterase Negative Urine WBC 0-5 Micro UA Comment Culture not ind Urine Culture Comments Culture not ind - Imaging Impressions Head MRI 05/12/18 15:21 CONCLUSION: 1. No acute abnormality seen. 2. Area of encephalomalacia from prior hemorrhage in the right occipital lobe. Neck MRA 05/12/18 15:21 CONCLUSION: 1. No sign of obstruction or significant stenosis. 2. Beading at the internal carotid arteries being more prominent on the left. This could be either artifactual or from underlying conditions such as fibromuscular dysplasia. Percent stenosis is calculated using the diameter of the stenotic region over the diameter of the normal distal internal carotid artery Chest X-Ray 05/12/18 15:26 CONCLUSION: Cardiomegaly. No acute pulmonary disease. Head MRA 05/12/18 15:29 CONCLUSION: Negative for major branch vessel occlusion Moderate atherosclerotic intracranial vascular disease Carotid Doppler Study 05/12/18 20:04 CONCLUSION: Mild plaque at the left carotid bulb region without a significant stenosis seen. Caprini VTE Risk Assessment Caprini VTE Risk Assessment: Moderate/High Risk (score >= 2) Caprini Risk Assessment Model: Point Value = 1 Point Value = 2 Point Value = 3 Point Value = 5 Age 41-60 Minor surgery BMI > 25 kg/m2 Swollen legs Varicose veins or History of unexplained or recurrent spontaneous Oral contraceptives or hormone replacement Sepsis (< 1 month) Serious lung disease, including pneumonia (< 1 month) Abnormal pulmonary function Acute myocardial infarction Congestive heart failure (< 1 month) History of inflammatory bowel disease Medical patient at bed rest Age 61-74 Arthroscopic surgery Major open surgery (> 45 min) Laparoscopic surgery (> 45 min) Malignancy Confined to bed (> 72 hours) Immobilizing plaster cast Central venous access Age >= 75 History of VTE Family history of VTE Factor V Leiden Prothrombin [id number] Lupus anticoagulant Anticardiolipin antibodies Elevated serum homocysteine Heparin-induced thrombocytopenia Other congenital or acquired thrombophilia Stroke (< 1 month) Elective arthroplasty Hip, pelvis, or leg fracture Acute spinal cord injury (< 1 month) Prophylaxis Regimen: Total Risk Factor Score Risk Level Prophylaxis Regimen 0-1 Low Early ambulation 2 Moderate Order ONE of the following: *Sequential Compression Device (SCD) *Heparin 5000 units SQ BID 3-4 Higher Order ONE of the following medications: *Heparin 5000 units SQ TID *Enoxaparin/Lovenox 40 mg SQ daily (WT < 150 kg, CrCl > 30 mL/min) *Enoxaparin/Lovenox 30 mg SQ daily (WT < 150 kg, CrCl > 10-29 mL/min) *Enoxaparin/Lovenox 30 mg SQ BID (WT < 150 kg, CrCl > 30 mL/min) AND/OR *Sequential Compression Device (SCD) 5 or more Highest Order ONE of the following medications: *Heparin 5000 units SQ TID (Preferred with Epidurals) *Enoxaparin/Lovenox 40 mg SQ daily (WT < 150 kg, CrCl > 30 mL/min) *Enoxaparin/Lovenox 30 mg SQ daily (WT < 150 kg, CrCl > 10-29 mL/min) *Enoxaparin/Lovenox 30 mg SQ BID (WT < 150 kg, CrCl > 30 mL/min) AND *Sequential Compression Device (SCD) Assessment and Plan - Assessment (1) Confusion Code(s): R41.0 - Disorientation, unspecified Status: Acute Plan: Possibly associated with recent medication change. EEG has been requested. Neurology to see the patient. She appears stable for discharge home hopefully later today. (2) Aphasia Code(s): R47.01 - Aphasia Status: Acute Plan: No current symptomatology. As above. (3) Diabetic nephropathy Code(s): E11.21 - Type 2 diabetes mellitus with diabetic nephropathy Status: Chronic Plan: Generally quite well controlled with an A1c of 6.2 on last 2 lab checks. Continue home medication and advised dietary adherence. (4) Major depression, chronic Code(s): F34.1 - Dysthymic disorder Status: Chronic Plan: Continue medication. Continue counseling as an outpatient. Patient reports she has been on multiple antidepressant type medications since the mid . No suicidal or homicidal ideation. (5) Anxiety Code(s): F41.9 - Anxiety disorder, unspecified Status: Chronic Plan: As above. Continue medication. (6) Chronic respiratory failure Code(s): J96.10 - Chronic respiratory failure, unspecified whether with hypoxia or hypercapnia Status: Chronic Plan: Associated with underlying radiation fibrosis per patient report. She has required oxygen supplementation at night since 2015. (7) Radiation fibrosis of lung Code(s): J70.1 - Chronic and other pulmonary manifestations due to radiation Status: Chronic (8) Subdural occipital hemorrhage Code(s): I62.00 - Nontraumatic subdural hemorrhage, unspecified Status: Resolved - Plan Code Status: full Discussed Condition With: Patient and ER provider Discharge Planning: Hopefully discharge home later today (3) Diabetic nephropathy Qualifiers: Diabetes mellitus type: type 2 Qualified Code(s): E11.21 - Type 2 diabetes mellitus with diabetic nephropathy
[2018-05-13] MEDS: ALPRAZolam 0.5 MG Tablet PO SCH ×2 (08:08→21:02)
[2018-05-13] MEDS: Pantoprazole Sodium 20 MG DR Tablet PO SCH (08:09)
[2018-05-13] MEDS: Duloxetine 60 MG DR Capsule PO SCH (08:09)
[2018-05-13] MEDS ORDERED: Non-Formulary Drug (Metoprolol Succinate [Metoprolol Succinate] 100 MG) PO SCH (09:00)
[2018-05-13] MEDS ORDERED: Sod Chloride 0.9% Inj 1,000 ML IV.CONT SCH (12:37)
--- NOTE | 2018-05-13 13:14 | MB ---
cc: Yash Stearns MD DATE: 05/13/2018 HISTORY OF PRESENT ILLNESS: A 67-year-old, right-handed woman with hypertension, non-insulin dependent diabetes, hypercholesterolemia, some renal insufficiency a few years ago, hypothyroidism, breast cancer 2014, not currently active and intracranial hemorrhage, right occipital lobe in 12/2016 with a followup MRI in December of that year, which did not show any mets, just a resolving hematoma. She has lost vision over to the left. Her says she has had for "TIAs" since 2005, which she just seems to zone out a little bit, but never any stroke symptoms. She has had chronic headaches since the hemorrhage bitemporal sometimes up to a 05/11. She was tried on Depakote. It did not seem to help and then on 05/03/2018, she was switched to Topamax 25 at night, started to have some slurred speech and then increased to 25 mg b.i.d. last Thursday and her speech got more slurred and eventually came in the hospital. She was also feeling tired and was admitted yesterday for confusion, and trouble speaking. She also takes Xanax, duloxetine and Fioricet p.r.n. for the headaches. She was having some drowsiness on the Depakote before. In the ER, she looks fine neurologically. Her UA was negative. CT just showed the old right occipital infarct. MRA of the neck was read as some beating on the left. Chest x-ray showed some cardiomegaly. She was subsequently admitted to the hospital. She had slurred speech, never really had aphasia. SOCIAL HISTORY: Not a smoker, not a drinker, lives with her . FAMILY HISTORY: Positive for cancer and MS. PAST MEDICAL HISTORY: As above, also some COPD. REVIEW OF SYSTEMS: The denied any MS, stent, angioplasty, A. Fib, Coumadin, CABG, hepatic, pulmonary disease, lupus, ulcer, known seizure. There was no seizure-like episode here. MEDICATIONS: She was on metformin, duloxetine 60 a day, Topamax 25 b.i.d., clonidine, losartan, alprazolam 0.5 b.i.d., atorvastatin, omeprazole, metoprolol and p.r.n. Fioricet. PHYSICAL EXAMINATION: VITAL SIGNS: Afebrile 58, 21, 32-74. NECK: There were no carotid bruits. HEART: Regular rate and rhythm. I did not detect a murmur. NEUROLOGIC: Pupils are equal. Visual camp, actually she could see my hand and fingers wiggling in all 4 quadrants bilaterally laterally, but she could not count fingers well to the left. She did better to the right, although the upper quadrant may be a little bit diminished compared to the right lower quadrant. Extraocular movements intact without nystagmus. Face is symmetric with normal sensation. Tongue was midline. There is no drift. She had normal strength in the upper and lower extremities bilaterally. DTRs were trace throughout. Toes downgoing bilaterally. Pinprick is intact throughout. She is not ataxic on [id number]. She was alert and oriented x 3. Speech is fluent. She is not aphasic. LABORATORY DATA: CBC was normal. UA was negative. Basic metabolic profile was normal. LFTs were normal. Albumin is 3.2. Coags normal. 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 She had an MRI of the brain, which did not show any acute infarct, just the old hemorrhage site on the right occipital region. No other infarcts were noted. She had an MRA of the neck which was read as possibly some left internal carotid artery beading, possible artifact versus FMD on review of the films. I would say there does appear to be on the left side a significant amount of what may be some fibromuscular dysplasia, but no stenosis was noted. I note, her GFR is normal with a creatinine of 1, so we will do a CTA for that. In 2006, she had a negative echo and an MRI of the brain. She also had an MR venogram which did not show any hemorrhage. She also had a normal EEG back in 2005. A negative carotid ultrasound at that time. She had a Holter which showed some SVT that could not totally rule out atrial fibrillation back in 2005 for some symptoms which did not sound particularly like a seizure. IMPRESSION: I think really the Topamax is what caused her symptoms here. We will check a CT of the neck, and if that is negative for any significant stenosis in that area of the left internal carotid artery which may show some at that fibromuscular dysplasia, then she could be discharged and she can followup with Dr. Lockwood. Otherwise, I thought she looked well, neurologically. Dr. Lockwood also follow what may be a small aneurysm and we will check a CTA of the head also for that, but I thought she looked well, neurologically. This consult was put in as a possible seizure, but there was no evidence for any seizure activity here. There was an equivocal Holter back in 2005. The med team could look into that to see if they are interested in any further monitoring of her heart, although as noted above, the results were equivocal and probably negative. So the bottom line here is if the CTA looks fine, then she can be discharged later today and followup with Dr. Lockwood and treat her headaches chronically with different medications. MD HERMELINDA Dawson/NAINA , 12:36 PM , 01:12 PM
--- NOTE | 2018-05-13 13:29 | ECG ---
Date Performed: 05/12/2018 Time Performed: 15:56:33 PTAGE: 67 years EKG: Sinus rhythm NORMAL ECG Since the PREVIOUS TRACING , no significant change noted PREVIOUS TRACIN01/15/2017 09.02 DOCTOR: Nathaniel Beltran Interpretating Date/Time 05/13/2018 13:21:13
--- NOTE | 2018-05-13 14:31 | MG ---
cc: Lalita Lockwood MD EEG NUMBER: [id number] REFERRING PROVIDER: Dr. Bauman. HISTORY: In room 8315 with photic stimulation only. Awake, and drowsy. MRI shows old right occipital hemorrhage/stroke. Admitted with trouble speaking and confusion 1 week ago. History of cardiac catheterization, ICH. On Xanax, Lipitor, Cozaar, Protonix, Toprol. DESCRIPTION OF RECORD: The patient has overall background rhythm that appears to be between 7 and 8 Hz, predominantly 7 Hz, 20-40 microvolts. EKG looks sinus. A lot of frontal artifact seen. Photic stimulation with a mild posterior driving response. No epileptiform features. IMPRESSION: Mild slowing of the background with what may be consistent with a mild encephalopathy or encephalopathy. No epileptiform features. Clinical correlation. Lalita Lockwood MD DF/VITO , 02:16 PM , 02:29 PM
--- NOTE | 2018-05-13 19:00 | CT ---
EXAM DATE: 05/13/2018 6:49 PM EDT AGE/SEX: 67 years / Female INDICATIONS: Slurred speech, altered mental status. Evaluate for aneurysm. CLINICAL DATA: This is the patient's initial encounter. Patient reports that signs and symptoms have been present for 2 days and indicates a pain score of 4/10. MEDICAL/SURGICAL HISTORY: Stroke. Carcinoma, breast. Chronic obstructive pulmonary disease. Diab etes, hypertension. . Cardiac catheterization. RADIATION DOSE: 42.24 CTDI (mGy) ; Combined studies COMPARISON: HPO, MR HEAD W & W/O CONTRAST, 05/12/2018. . TECHNIQUE: Volumetric scanning was performed using a multi-row detector CT scanner during bolus infu mikey of 73 ml Omnipaque 350 (iohexol) nonionic water-soluble contrast as a cumulative dose for multi ple exams. The data was post processed with a variety of visualization algorithms including full vo lume maximum intensity projection, multi-planar sliding thin slab reformation, curved planar reformat ion, and surface rendering techniques. Using automated exposure control and adjustment of the mA and /or kV according to patient size, radiation dose was kept as low as reasonably achievable to obtain o ptimal diagnostic quality images. DICOM format image data is available electronically for review and comparison. FINDINGS: The internal carotid arteries demonstrate no abnormality. No significant stenosis is present. A1 segm ents are symmetric. There is a saccular aneurysm arising from the anterior communicating artery infer iorly measuring 4 x 4 x 5 mm. More peripheral anterior cerebral arteries demonstrate no abnormality. The middle cerebral artery branches are symmetric. The visualized intracranial structures demonstrate right occipital lobe encephalomalacia. No gross bl ood products are seen. CONCLUSION: 1. 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 2. The remaining intracranial vascular structures demonstrate no acute finding. Electronically signed by: Cristian Ayon MD 05/13/2018 6:59 PM EDT
--- NOTE | 2018-05-13 21:01 | CT ---
EXAM DATE: 05/13/2018 8:34 PM EDT AGE/SEX: 67 years / Female INDICATIONS: Slurred speech, altered mental status. CLINICAL DATA: This is the patient's initial encounter. Patient reports that signs and symptoms have been present for 2 days and indicates a pain score of 0/10. MEDICAL/SURGICAL HISTORY: Stroke. Carcinoma, breast. Chronic obstructive pulmonary disease. Diab etes, hypertension. . Cardiac catheterization. RADIATION DOSE: 42.24 CTDI (mGy) ; Combined studies COMPARISON: HPO, MRA NECK W CONTRAST, 05/12/2018. . TECHNIQUE: Volumetric scanning was performed using a multirow detector CT scanner during bolus infus ion of 73 ml Omnipaque 350 (iohexol) nonionic water-soluble contrast as a cumulative dose for multip le exams. The data was postprocessed with a variety of visualization algorithms including full-volu me maximum intensity projection, multiplanar sliding thin-slab reformation, curved-planar reformation , and surface-rendering techniques. Using automated exposure control and adjustment of the mA and/or kV according to patient size, radiation dose was kept as low as reasonably achievable to obtain opti mal diagnostic quality images. DICOM format image data is available electronically for review and co mparison. Elevated flow velocities and ICA/CCA ratios have been found to correlate with increased degrees of ve ssel stenosis, calculated as percentage of diameter relative to a normal segment of distal ICA/CCA. FINDINGS: There is a common origin of the brachiocephalic and left common carotid arteries. Mild calcified plaq ue is present at the origin of the left subclavian artery. There is no significant atherosclerotic di sease or stenosis within the common carotid arteries bilaterally. Mild calcified plaque is present in the left carotid bulb and left proximal internal carotid artery without any significant stenosis pre sent. Right internal carotid artery and carotid bulb demonstrates no atherosclerotic plaque or narrow ing. Both vertebral arteries are well-opacified with left vertebral artery being dominant. The visualized surrounding structures demonstrate no acute finding. Thyroid gland is heterogeneous wi th enlarged right lobe. CONCLUSION: 1. No significant atherosclerotic disease or stenosis within either internal carotid artery. 2. Asymmetrically enlarged and heterogeneous right lobe of the thyroid gland. Electronically signed by: Cristian Ayon MD 05/13/2018 8:59 PM EDT
--- NOTE | 2018-05-14 06:50 | P.PN ---
Subjective Interval history: Slept relatively well. No more speech problems. Has mild intermittent headache which she has had since her intracranial hemorrhage in 2017. These headaches are typically bitemporal and are unchanged. No thunderclap headache or any severe escalation of intensity. No vision changes. Physical Exam Vital signs: Vital Signs 05/13/18 07:26 05/13/18 08:00 05/13/18 11:17 Temperature 97.6 F 97.5 F L Pulse Rate 57 L 58 L Respiratory Rate 20 20 Blood Pressure 128/76 132/74 Pulse Oximetry 93 L 93 L 93 L 05/13/18 15:04 05/13/18 16:00 05/13/18 20:00 Temperature 97.5 F L 98.4 F Pulse Rate 59 L 67 Respiratory Rate 20 20 Blood Pressure 142/80 H 168/78 H 134/69 Pulse Oximetry 95 95 05/14/18 00:00 Temperature 97.1 F L Pulse Rate 65 Respiratory Rate 20 Blood Pressure 162/67 H Pulse Oximetry 97 Intake & Output 05/13/18 05/13/18 05/14/18 06:59 18:59 06:59 Intake Total 960 / 960 Balance 960 / 960 Intake: Oral 960 / 960 Other: # Voids 4 Narrative: GENERAL: Sleeping soundly, arouses to voice. Alert and oriented. Cooperative. Slightly anxious. SKIN: Warm and dry. HEAD: Atraumatic. Normocephalic. EYES: Pupils equal and round. No scleral icterus. No injection or drainage. ENT: No nasal bleeding or discharge. Mucous membranes pink and moist. NECK: Trachea midline. No JVD. CARDIOVASCULAR: Regular rate and rhythm. RESPIRATORY: No accessory muscle use. Clear to auscultation. Breath sounds equal bilaterally. GASTROINTESTINAL: Abdomen soft, non-tender, nondistended. Hepatic and splenic margins not palpable. MUSCULOSKELETAL: Extremities without clubbing, cyanosis, or edema. No obvious deformities. NEUROLOGICAL: No obvious cranial nerve deficits. Motor grossly within normal limits. Five out of 5 muscle strength in the arms and legs. Normal speech. PSYCHIATRIC: Appropriate mood and affect; insight and judgment normal. Results - Labs CBC & Chem 7: 05/12/18 15:53 05/12/18 15:53 Laboratory Results - last 24 hr 05/13/18 11:30 Ammonia 16 - Imaging Impressions Head CTA 05/13/18 00:00 CONCLUSION: 1. 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 2. The remaining intracranial vascular structures demonstrate no acute finding. Neck CTA 05/13/18 00:00 CONCLUSION: 1. No significant atherosclerotic disease or stenosis within either internal carotid artery. 2. Asymmetrically enlarged and heterogeneous right lobe of the thyroid gland. Assessment and Plan - Assessment (1) Confusion Code(s): R41.0 - Disorientation, unspecified Status: Acute Plan: Possibly associated with recent medication change. EEG has been requested. Appreciate neurology input. Patient much improved. Will remain off of topiramate and discharge home today. (2) Aphasia Code(s): R47.01 - Aphasia Status: Acute Plan: No current symptomatology. Resolved. (3) Diabetic nephropathy Code(s): E11.21 - Type 2 diabetes mellitus with diabetic nephropathy Status: Chronic Plan: Generally quite well controlled with an A1c of 6.2 on last 2 lab checks. Continue home medication and advised dietary adherence. (4) Major depression, chronic Code(s): F34.1 - Dysthymic disorder Status: Chronic Plan: Continue medication. Continue counseling as an outpatient. Patient reports she has been on multiple antidepressant type medications since the mid . No suicidal or homicidal ideation. (5) Anxiety Code(s): F41.9 - Anxiety disorder, unspecified Status: Chronic Plan: As above. Continue medication. (6) Chronic respiratory failure Code(s): J96.10 - Chronic respiratory failure, unspecified whether with hypoxia or hypercapnia Status: Chronic Plan: Associated with underlying radiation fibrosis per patient report. She has required oxygen supplementation at night since 2014. (7) Radiation fibrosis of lung Code(s): J70.1 - Chronic and other pulmonary manifestations due to radiation Status: Chronic (8) Aneurysm Code(s): I72.9 - Aneurysm of unspecified site Status: Acute Plan: Small 4-5 mm saccular aneurysm noted on CTA and per MRA report. Neurology notes reviewed and outpatient follow-up is appropriate. I instructed patient on signs and symptoms of aneurysmal disruption such as sudden severe headache. Will manage blood pressure stringently. (9) Subdural occipital hemorrhage Code(s): I62.00 - Nontraumatic subdural hemorrhage, unspecified Status: Resolved - Plan Discharge Planning: discharge home later today (3) Diabetic nephropathy Qualifiers: Diabetes mellitus type: type 2 Qualified Code(s): E11.21 - Type 2 diabetes mellitus with diabetic nephropathy
--- NOTE | 2018-05-14 07:06 | P.PNNEU ---
Subjective Subjective Comments: No acute events reported cta neck neg some thyroid nodule check tsh t4 ok dc neurowise nurse tells me pt doing fine fu eeg fu dr amador aneurism small asx can fu over time Active Medications: Active Medications Alprazolam (Xanax) 0.5 mg PO BID [facility] Last Admin: 05/13/18 21:02 Dose: 0.5 mg Atorvastatin Calcium (Lipitor) 80 mg PO DAILY [facility] Last Admin: 05/13/18 08:07 Dose: 80 mg Duloxetine HCl (Cymbalta) 60 mg PO DAILY [facility] Last Admin: 05/13/18 08:09 Dose: 60 mg Sodium Chloride (Ns Inj) 1,000 mls @ 100 mls/hr IV.CONT .Q10H [facility] Last Admin: 05/13/18 21:03 Dose: Not Given Losartan Potassium (Cozaar) 25 mg PO BID [facility] Last Admin: 05/13/18 21:02 Dose: 25 mg Metoprolol Succinate (Toprol Xl) 100 mg PO DAILY [facility] Last Admin: 05/13/18 08:09 Dose: 100 mg Pantoprazole Sodium (Protonix) 20 mg PO DAILY [facility] Last Admin: 05/13/18 08:09 Dose: 20 mg Allergies/Adverse Reactions: Allergies Allergy/AdvReac Type Severity Reaction Status Date / Time clarithromycin Allergy Severe RASH Verified 05/12/18 15:12 doxycycline Allergy Severe Rash Verified 10/15/17 06:39 penicillin G Allergy Severe RASH Verified 05/12/18 15:12 sulfamethoxazole Allergy Severe RASH/ Verified 05/12/18 15:12 NAUSEA trimethoprim Allergy Severe RASH/ Verified 05/12/18 15:12 NAUSEA aspirin Allergy Unknown AVOID DO Verified 05/12/18 15:12 TO CVA dipyridamole Allergy Unknown Headache Verified 05/12/18 15:12 codeine AdvReac Severe HALLUCINATI Verified 05/12/18 15:12 ONS Physical Exam Vital signs: Vital Signs 05/13/18 07:26 05/13/18 08:00 05/13/18 11:17 Temperature 97.6 F 97.5 F L Pulse Rate 57 L 58 L Respiratory Rate 20 20 Blood Pressure 128/76 132/74 Pulse Oximetry 93 L 93 L 93 L 05/13/18 15:04 05/13/18 16:00 05/13/18 20:00 Temperature 97.5 F L 98.4 F Pulse Rate 59 L 67 Respiratory Rate 20 20 Blood Pressure 142/80 H 168/78 H 134/69 Pulse Oximetry 95 95 05/14/18 00:00 Temperature 97.1 F L Pulse Rate 65 Respiratory Rate 20 Blood Pressure 162/67 H Pulse Oximetry 97 Intake & Output 05/13/18 05/14/18 05/14/18 18:59 06:59 18:59 Intake Total 960 / 960 240 / 240 Balance 960 / 960 240 / 240 Intake: Oral 960 / 960 240 / 240 Other: # Voids 4 2 # Bowel Movements 0 Objective Laboratory Results - last 24 hr 05/13/18 11:30 Ammonia 16
[2018-05-14 07:55] LABS: Thyroid Stimulating Hormone 2.67 uIU/mL (0.358-3.740)
[2018-05-14] MEDS: Pantoprazole Sodium 20 MG DR Tablet PO SCH (09:13)
[2018-05-14] MEDS: ALPRAZolam 0.5 MG Tablet PO SCH (09:14)
[2018-05-14] MEDS: Duloxetine 60 MG DR Capsule PO SCH (09:14)
[2018-05-14 11:04] LABS: T4 (Thyroxine) 7.9 mcg/dL (4.8-13.9)
== END 2018-05-14 09:51 | disposition home or self-care (01) ==
LOC: PH3 14:58 → PHED 14:58 → PHEDA 14:58 → PH3 21:42
PROVIDERS: ADMIT Internal Medicine; ATTEND Internal Medicine